=== PATIENT | female | born 1985 | race Caucasian/White ===

== ENCOUNTER → 2020-09-22 12:30 | Outpatient (CLI) | payer BC, SELFPAY ==
--- NOTE | ~2020-09-22 | MR_ITS ---
EXAMINATION: MR ankle RT wo con DATE: 09/22/2020 13:09 INDICATION: Peroneal tendinitis presenting with lateral right ankle pain TECHNIQUE: Magnetic resonance imaging (MRI) of the right ankle was performed without intravenous cont rast. Sequences included sagittal, coronal, and axial proton-density weighted fast spin echo without and with fat saturation. COMPARISON: None. FINDINGS: Medial ankle ligaments: Deep and superficial deltoid ligaments as well as the spring ligament are normal. Lateral ankle ligaments: The anterior and posterior inferior tibiofibular ligaments are normal. posterior talofibular ligamen ts is normal. Chronic tear of the anterior talofibular ligament without surrounding edema. Attenuatio n of the calcaneofibular ligament without surrounding edema also likely sequela of chronic partial te ar. Tendons: Achilles tendon is normal. There is small amount of fluid in the peroneal tendon sheath consistent wi th mild tenosynovitis. Mild fusiform thickening consistent with mild tendinopathy of the peroneus nette nilda and brevis tendons without discrete tear. The tibialis anterior and extensor hallucis longus and extensor digitorum longus tendons are normal. The flexor digitorum longus and flexor hallucis longus tendons are normal. Minimal tenosynovitis along the distal aspect of the normal tibialis posterior te ndon. Plantar fascia: Plantar aponeurosis is normal. Bones/other: Low signal intensity sclerotic bone islands at the head and lateral process of the talus. Bone marrow signal is otherwise normal. No fracture or pathologic marrow replacing process. Joint spaces are nor mal. Fluid: Physiologic amount fluid in the joint spaces. IMPRESSION: 1. Mild peroneal tenosynovitis and mild tendinopathy without discrete tear of the peroneus longus and brevis tendons. 2. Chronic tear of the anterior talofibular ligament and partial tear of the calcaneofibular ligament . Reviewed, dictated and finalized at location A. IMPRESSION: 1. Mild peroneal tenosynovitis and mild tendinopathy without discrete tear of t he peroneus longus and brevis tendons. 2. Chronic tear of the anterior talofibular ligament and partial tear of the ca lcaneofibular ligament.
== END ==
PROVIDERS: PCP Internal Medicine; Visit Provider Podiatrist Foot & Ankle Surgery
DX: M76.71 Peroneal tendinitis, right leg (principal)
CPT/HCPCS: 73721

== ENCOUNTER 2021-01-17 16:26 | Emergency (ER) | payer OTHER, SELFPAY ==
[2021-01-17 16:31] VITALS: BP 113/81; PULSE 93; RESP 14; TEMP 36.1; O2SAT 100
--- NOTE | 2021-01-17 17:10 | ED.URI ---
HPI - URI/Sore Throat General Chief Complaint: Upper Respiratory Infection Stated Complaint: nausea fever Time Seen by Provider: 01/17/21 17:10 Source: patient Mode of arrival: ambulatory Limitations: no limitations History of Present Illness HPI Narrative: Ashly Lamas is a 36 yo female with PMH of Type 1 diabetes comes with fever and headache and sore throat x 1 week. Appears to feel poorly; is on insulin properly her current blood sugar is over 300-she has been unable to eat or keep fluids down for the past 2 days Related Data Home Medications Medication Instructions Recorded Confirmed aripiprazole 2 mg PO DAILY 01/17/21 01/17/21 desvenlafaxine succinate [Pristiq] 100 mg PO DAILY 01/17/21 01/17/21 insulin lispro [Humalog U-100 1 sliding scale dose SUBCUT 01/17/21 01/17/21 Insulin] USEASDIRECTD pregabalin [Lyrica] 75 mg PO HS 01/17/21 01/17/21 Allergies Allergy/AdvReac Type Severity Reaction Status Date / Time piperacillin Allergy Unknown Swelling Verified 01/17/21 16:42 of Lip/Tongue/Throat tazobactam Allergy Unknown Swelling Verified 01/17/21 16:42 of Lip/Tongue/Throat Review of Systems Review of Systems: CONSTITUTIONAL: Has fever, chills, sweats. Feels fatigue EYES: Denies visual changes, redness, discharge. ENT: Denies rhinorrhea, has congestion, has sore throat, otalgia. Has had a headache CARDIOVASCULAR: Denies chest pain, palpitations, edema. RESPIRATORY: Denies dyspnea, wheezing, cough GASTROINTESTINAL: Denies abdominal pain, nausea, vomiting, diarrhea. GENITOURINARY: Denies dysuria, hematuria, abnormal discharge SKIN: Denies rash or itching. NEUROLOGIC: Denies numbness, or focal weakness. PSYCHIATRIC: Denies anxiety or depression. [facility] Past Medical History Medical History (Updated 01/17/21 @ 18:53 by Deann Spencer CNP) Migraine Type 1 diabetes Family History Family History (Updated 01/17/21 @ 17:20 by Deann Spencer CNP) Other High cholesterol Hypertension Social History Social History (Updated 01/17/21 @ 17:20 by Deann Spencer CNP) Smoking status: Never smoker Alcohol intake: current Comments At time of signature, I agree with nursing past medical, surgical, social and family history. There is no relevant family history pertinent to the presenting complaint. Exam Narrative: GENERAL: This is a well-nourished, well-developed patient, in moderate distress. Looks dry and uncomfortable, HEAD: normocephalic, atraumatic. EYES: Sclera clear/white. Vision is grossly intact. EARS: External ears normal, auditory canals clear and without drainage, TMs normal without perforation. Hearing grossly intact. NOSE: External nose normal without nasal discharge, nares without redness, no rhinorrhea. THROAT: Mucous membranes moist, posterior pharynx mild erythema NECK: Neck supple, non-tender CARDIOVASCULAR: Regular rate and rhythm without murmurs, gallops, or rubs. RESPIRATORY: Clear to auscultation. Breath sounds equal bilaterally. No wheezes, rales, or rhonchi. GASTROINTESTINAL: Abdomen soft, non-tender, SKIN: warm, intact with no suspicious lesions or rash, good texture and turgor. NEURO: awake, alert, and oriented to person, place and time. There were no obvious focal neurologic abnormalities. Steady gait EXTREMITIES: Normal range of motion. BACK: Nontender without deformity Course Course Emergency Course: Patient here with complaints of nausea vomiting headache inability keep anything down. Started a week ago with a sore throat and has developed nausea Strep test negative Covid test Give IV fluids and Zofran Given 1 L of normal saline and p.o. Zofran over 45 minutes Patient's color and energy level improved vital signs are stable given Zofran at discharge and discussed management of her blood sugar and hydration to prevent emergency room visit for DKA during a sick episode Vital Signs Vital signs: Vital Signs Temperature 97 F L 01/17/21 16:
[2021-01-17] MEDS: SODIUM CHLORIDE 0.9% IV 1,000 ML 999 ML IV CONT (17:38)
[2021-01-17] MEDS: ONDANSETRON HCL ODT 4 MG TABLET PO (17:38)
== END 2021-01-17 19:08 | disposition home or self-care (01) ==
PROVIDERS: Emergency Provider Nurse Practitioner; PCP Internal Medicine
DX: E86.0 Dehydration (principal); J02.9 Acute pharyngitis, unspecified; R11.14 Bilious vomiting; E10.9 Type 1 diabetes mellitus without complications
CPT/HCPCS: 87081; 87426; 87880; 96360; 99213; A9270; C9803; G0463; J7030

== ENCOUNTER 2021-08-12 16:56 | Emergency (ER) | payer OTHER, SELFPAY ==
[2021-08-12 17:02] VITALS: BP 133/93; PULSE 93; RESP 14; TEMP 36.9; O2SAT 99
--- NOTE | 2021-08-12 17:11 | ED.URI ---
HPI - URI/Sore Throat General Chief Complaint: Upper Respiratory Infection Stated Complaint: Sore Throat/Fever/Congestion Time Seen by Provider: 08/12/21 17:11 Source: patient Mode of arrival: ambulatory Limitations: no limitations History of Present Illness HPI Narrative: 36-year-old female presents with complaint of headache, congestion, sore throat, fatigue, low-grade fever x4 days. Reports that throat hurts really bad. Denies nausea vomiting diarrhea. All systems reviewed and negative except as noted above. Related Data Home Medications Medication Instructions Recorded Confirmed aripiprazole 2 mg PO DAILY 01/17/21 01/17/21 desvenlafaxine succinate [Pristiq] 100 mg PO DAILY 01/17/21 01/17/21 insulin lispro [Humalog U-100 1 sliding scale dose SUBCUT 01/17/21 01/17/21 Insulin] USEASDIRECTD dextroamphetamine-amphetamine 10 mg PO DAILY 08/12/21 08/12/21 [Adderall] Allergies Allergy/AdvReac Type Severity Reaction Status Date / Time piperacillin Allergy Unknown Swelling Verified 08/12/21 17:12 of Lip/Tongue/Throat tazobactam Allergy Unknown Swelling Verified 08/12/21 17:12 of Lip/Tongue/Throat Review of Systems Review of Systems: CONSTITUTIONAL: Reports fever, chills, or sweats. EYES: Denies visual changes, redness, or discharge. ENT: Reports rhinorrhea, congestion, sore throat, or otalgia. CARDIOVASCULAR: Denies chest pain, palpitations, or edema. RESPIRATORY: Denies cough or dyspnea. GASTROINTESTINAL: Denies abdominal pain, nausea, vomiting, or diarrhea. GENITOURINARY: Denies dysuria or hematuria. SKIN: Denies rash or itching. MUSCULOSKELETAL: Denies back pain, joint pain, or myalgia. NEUROLOGIC: Denies headache, numbness, or weakness. PSYCHIATRIC: Denies anxiety or depression. All other systems reviewed are negative, except as documented in HPI. [facility] Past Medical History Medical History (Updated 08/12/21 @ 17:41 by Harper Mora NP) Migraine Type 1 diabetes Family History Family History (Updated 01/17/21 @ 17:20 by Deann Spencer CNP) Other High cholesterol Hypertension Social History Social History (Updated 01/17/21 @ 17:20 by Deann Spencer CNP) Smoking status: Never smoker Alcohol intake: current Comments At time of signature, agree with nursing past medical, surgical, social and family history. There is no relevant family history pertinent to the presenting complaint. Exam Narrative: GENERAL: This is a well-nourished, well-developed patient. Patient is ill-appearing but in no distress. HEAD: normocephalic, atraumatic. EYES: PERRL. Sclera clear/white. Vision is grossly intact. EARS: External ears normal, auditory canals clear and without drainage, TMs normal without perforation. Hearing grossly intact. NOSE: External nose normal. Clear nasal drainage. No sinus tenderness. THROAT: Mucous membranes moist. Mild erythema to posterior pharynx. NECK: Neck supple, non-tender without lymphadenopathy, masses or thyromegaly. CARDIOVASCULAR: Regular rate and rhythm without murmurs, gallops, or rubs. RESPIRATORY: Clear to auscultation. Breath sounds equal bilaterally. No wheezes, rales, or rhonchi. GASTROINTESTINAL: Abdomen soft, non-tender, nondistended. Bowel sounds are active. No hepato-splenomegaly, or palpable masses. No guarding. SKIN: warm, Dry, intact with no suspicious lesions or rash, good texture and turgor. NEURO: awake, alert, and oriented to person, place and time. There were no obvious focal neurologic abnormalities. EXTREMITIES: No joint tenderness, effusion, or edema noted. No calf tenderness. Negative Homans sign bilaterally. BACK: Nontender without deformity. No CVA tenderness. Course Course Level of Care: Express Care Visit Vital Signs Vital signs: Vital Signs Temperature 36.9 C 08/12/21 17:02 Pulse Rate 93 08/12/21 17:02 Respiratory Rate 14 08/12/21 17:02 Blood Pressure 133/93 H 08/12/21 17:02 Pulse Oximetry 99 03/
== END 2021-08-12 17:45 | disposition home or self-care (01) ==
PROVIDERS: Emergency Provider Nurse Practitioner Family; PCP Internal Medicine
DX: J06.9 Acute upper respiratory infection, unspecified (principal); Z20.822 Contact with and (suspected) exposure to COVID-19; E10.9 Type 1 diabetes mellitus without complications
CPT/HCPCS: 87081; 87426; 87880; 99213; C9803; G0463

== ENCOUNTER 2021-09-04 18:53 | Emergency (ER) | payer OTHER, SELFPAY ==
[2021-09-04 19:02] VITALS: BP 114/83; PULSE 94; RESP 14; TEMP 36.8; O2SAT 100
--- NOTE | 2021-09-04 19:07 | ED.URI ---
HPI - URI/Sore Throat General Chief Complaint: Upper Respiratory Infection Stated Complaint: Congestion/Chest Congestion Time Seen by Provider: 09/04/21 19:09 Source: patient and RN notes reviewed Mode of arrival: ambulatory Limitations: no limitations History of Present Illness HPI Narrative: 36-year-old female presents concern for 5-week history of chest congestion, nasal congestion, foul nasal discharge. Reports she has had cold symptoms for many weeks and most of them have resolved however these have worsened. She reports she is taking [id number] medication that relief. She denies fever, bodies, chills, sweats. MD elicited complaint: cough and nasal congestion Related Data Home Medications Medication Instructions Recorded Confirmed desvenlafaxine succinate [Pristiq] 100 mg PO DAILY 01/17/21 09/04/21 insulin lispro [Humalog U-100 1 sliding scale dose SUBCUT 01/17/21 09/04/21 Insulin] USEASDIRECTD dextroamphetamine-amphetamine 10 mg PO DAILY 08/12/21 09/04/21 [Adderall] pregabalin 50 mg PO DIRECTED 09/04/21 09/04/21 Allergies Allergy/AdvReac Type Severity Reaction Status Date / Time piperacillin Allergy Unknown Swelling Verified 09/04/21 19:10 of Lip/Tongue/Throat tazobactam Allergy Unknown Swelling Verified 09/04/21 19:10 of Lip/Tongue/Throat Review of Systems Review of Systems: CONSTITUTIONAL: Denies malaise, chills, sweats, or fever. EYES: Denies visual changes, redness, or discharge. ENT: Reports rhinorrhea, congestion, sinus pain. Denies otalgia and sore throat. CARDIOVASCULAR: Denies chest pain, palpitations, or edema. RESPIRATORY: Reports cough, chest congestion. Denies dyspnea. GASTROINTESTINAL: Denies abdominal pain, nausea, vomiting, diarrhea SKIN: Denies rash or itching. MUSCULOSKELETAL: Denies myalgia. NEUROLOGIC: Denies headache. All systems reviewed & are unremarkable except as noted in HPI and below PMFSH Past Medical History Medical History (Updated 09/04/21 @ 19:15 by Christina Walton NP) Migraine Type 1 diabetes Family History Family History (Updated 01/17/21 @ 17:20 by Deann Spencer CNP) Other High cholesterol Hypertension Social History Social History (Updated 01/17/21 @ 17:20 by DELFINO Cruz Smoking status: Never smoker Alcohol intake: current Comments At time of signature, agree with nursing past medical, surgical, social and family history. There is no relevant family history pertinent to the presenting complaint Exam Narrative: GENERAL: Well-appearing and in no acute distress. HEAD: Normocephalic EYES: PERRLA, conjunctivae clear ENT: Nares clear, turbinates edematous and erythematous, sinus tenderness. Mucous membranes moist. TM pearly rodrigues with dull light reflex bilaterally; no tragal tenderness. Oropharynx not erythematous without lesions. Tonsils not enlarged and without exudate, no drooling, no hoarseness, no trismus, uvula midline. NECK: Supple. No lymphadenopathy CHEST: Clear to auscultation, breath sounds equal. No wheezing, rhonchi, rales, or stridor. No respiratory distress, speaks in full sentences. Cough noted HEART: Regular rate and rhythm. No murmur heard. SKIN: Warm, dry, no rash. NEURO: Alert and oriented x3. PSYCH: Normal mood and affect Course Course Emergency Course: Patient is aware of diagnosis, understands and agrees to treatment plan. Anticipatory guidance given. Patient agrees to follow-up as directed and is aware of reasons to seek care at the emergency department. Portions of this record may have been created with voice recognition software Level of Care: Express Care Visit Vital Signs Vital signs: Vital Signs Temperature 98.2 F 09/04/21 19:02 Pulse Rate 94 09/04/21 19:02 Respiratory Rate 14 09/04/21 19:02 Blood Pressure 114/83 09/04/21 19:02 Pulse Oximetry 100 09/04/21 19:02 Temperature 98.2 F 09/04/21 19:02 Pulse Rate 94 09/04/21 19:02 Respiratory Rate 1
== END 2021-09-04 19:21 | disposition home or self-care (01) ==
PROVIDERS: Emergency Provider Nurse Practitioner; PCP Internal Medicine
DX: J32.9 Chronic sinusitis, unspecified (principal); J40 Bronchitis, not specified as acute or chronic; E10.9 Type 1 diabetes mellitus without complications
CPT/HCPCS: 99213; G0463

== ENCOUNTER 2023-05-06 16:40 | Emergency (ER) | payer BC, SELFPAY ==
--- NOTE | ~2023-05-06 | XR_ITS ---
EXAMINATION: XR ankle LT min 3V, XR foot LT min 3V DATE: 05/06/2023 17:04 INDICATION: Left foot and ankle injury with bruising at the lateral left ankle TECHNIQUE: 1. Anteroposterior, mortise, additional oblique and lateral view of the left ankle were obtained. 2. Dorsoplantar, two oblique and lateral views of the left foot were obtained. COMPARISON: None. FINDINGS: Alignment of the foot and ankle is normal. No fracture or osteochondral lesion. Joint spaces are well maintained. No ankle joint effusion. Soft tissue swelling about the lateral malleolus. IMPRESSION: 1. No osseous abnormality. Reviewed, dictated and finalized at location A. LIFT ATTENDANT IMPRESSION: 1. No osseous abnormality. IMPRESSION: 1. No osseous abnormality.
--- NOTE | 2023-05-06 16:42 | ED.LOWEXIN ---
HPI - Extremity Injury (Lower) General Chief Complaint: Extremity Injury, Lower Stated Complaint: Left Foot Injury Time Seen by Provider: 05/06/23 16:53 Source: patient, RN notes reviewed and old records reviewed Mode of arrival: ambulatory Limitations: no limitations History of Present Illness HPI Narrative: 38-year-old female presents to the [facility] with complaints of left lateral foot and lateral ankle pain. States that she tripped rule ear ankle in for sleep, felt a sharp pop. States that she took a tramadol that she had for her rotator cuff. Bruising and swelling noted to the lateral malleolus. Full range of motion. Sensation intact, capillary refill under 2 seconds with positive pedal pulse Injury: Left: ankle and foot Related Data Home Medications Medication Instructions Recorded Confirmed desvenlafaxine succinate 100 mg 100 mg PO DAILY 01/17/21 09/04/21 tablet,extended release 24 hr (Pristiq) insulin lispro 100 unit/mL 1 sliding scale dose subcut 01/17/21 09/04/21 subcutaneous solution (Humalog USEASDIRECTD U-100 Insulin) dextroamphetamine-amphetamine 10 10 mg PO DAILY 08/12/21 09/04/21 mg tablet (Adderall) pregabalin 50 mg capsule 50 mg PO DIRECTED 09/04/21 09/04/21 hydrocodone 5 mg-acetaminophen 325 tablet 05/06/23 mg tablet insulin degludec 100 unit/mL (3 unit subcut 05/06/23 mL) subcutaneous pen (Tresiba FlexTouch U-100 insulin) valsartan 160 mg tablet mg 05/06/23 05/06/23 Allergies Allergy/AdvReac Type Severity Reaction Status Date / Time piperacillin Allergy Unknown Swelling Verified 05/06/23 16:54 of Lip/Tongue/Throat tazobactam Allergy Unknown Swelling Verified 05/06/23 16:54 of Lip/Tongue/Throat Review of Systems Review of Systems: All systems reviewed & are unremarkable except as noted in HPI and below Constitutional: Constitutional: Reports no additional constitutional complaints Eyes: Eyes: Reports no additional eye complaints ENT: Reports system reviewed and no additional complaints, except as documented Cardiovascular: Cardiovascular: Reports no additional cardiovascular complaints, Denies chest pain and Denies dyspnea Respiratory: Respiratory: Reports no additional respiratory complaints, Denies chest congestion, Denies cough and Denies dyspnea Gastrointestinal: Gastrointestinal: Reports no additional gastrointestinal complaints, Denies abdominal pain, Denies nausea and Denies vomiting Musculoskeletal: Musculoskeletal: Reports as per HPI, Reports arthralgias and Reports joint swelling Integumentary/Breasts: Skin/Breast: Reports system reviewed and no additional complaints, except as docu Neurologic: Reports system reviewed and no additional complaints, except as documented Psychiatric: Psychiatric: Reports no additional psychiatric complaints Allergic/Immunologic: Allergic/Immunologic: Reports no additional allergic/immunologic complaints PMFSH Past Medical History Medical History Migraine Type 1 diabetes Family History Family History Other High cholesterol Hypertension Social History Social History Smoking status: Never smoker Alcohol intake: current Comments At the time of my signature, I reviewed and agree with the nursing past medical, surgical, social, and family history. There is no relevant family history pertinent to the patient complaint. Exam Const: General: cooperative, healthy appearing, comfortable, no acute distress, well developed, alert and well nourished Nutritional Appearance: well nourished Orientation/consciousness: patient oriented x3 Limitations: no limitations HENMT: Head: normal to inspection Ears: hearing grossly normal bilaterally and external ears normal Face/Nose/Sinus: Normal external nose present, Normal nares present,
[2023-05-06 16:53] VITALS: BP 123/82; PULSE 102; RESP 16; TEMP 36.7; O2SAT 97
[2023-05-06 16:58] VITALS: BP 123/82; PULSE 102; RESP 16; TEMP 36.7; O2SAT 97
== END 2023-05-06 17:16 | disposition home or self-care (01) ==
PROVIDERS: Emergency Provider Nurse Practitioner; PCP Internal Medicine
DX: S93.402A Sprain of unspecified ligament of left ankle, initial encounter (principal); W01.0XXA Fall on same level from slipping, tripping and stumbling without subsequent striking against object, initial encounter; E10.9 Type 1 diabetes mellitus without complications
CPT/HCPCS: 73610; 73630; 99213; G0463

== ENCOUNTER 2023-07-06 15:06 | Emergency (ER) | payer BC, SELFPAY ==
[2023-07-06 15:18] VITALS: BP 140/90; PULSE 101; RESP 16; TEMP 37.2; O2SAT 99
--- NOTE | 2023-07-06 16:48 | ED.URI ---
HPI - URI/Sore Throat General Chief Complaint: Upper Respiratory Infection Stated Complaint: Chest Congestion/Cough/Sore Throat Time Seen by Provider: 07/06/23 16:30 Source: patient Mode of arrival: ambulatory Limitations: no limitations History of Present Illness HPI Narrative: 38 year old female who presents to [facility] care with complaints of fevers, cough which is productive, sore throat, congestion in head and feels like chest is on fire, with some body aches since Friday. Patient reports that she had 102F fever on Friday. Patient reports that she has been taking Tylenol and Ibuprofen and OTC cold medications without improvement in her symptoms. Patient reports no known ill contacts. MD elicited complaint: fever, cough, sore throat, rhinorrhea and nasal congestion Pertinent past history: other (insulin dependent diabetic) Onset (ago): day(s) (5 days) Pain scale (0-10): 4 Able to tolerate fluids by mouth: Yes Treatments prior to arrival: acetaminophen, ibuprofen, cold medicine and other Related Data Home Medications Medication Instructions Recorded Confirmed desvenlafaxine succinate 100 mg 100 mg PO DAILY 01/17/21 09/04/21 tablet,extended release 24 hr (Pristiq) insulin lispro 100 unit/mL 1 sliding scale dose subcut 01/17/21 09/04/21 subcutaneous solution (Humalog USEASDIRECTD U-100 Insulin) dextroamphetamine-amphetamine 10 10 mg PO DAILY 08/12/21 09/04/21 mg tablet (Adderall) pregabalin 50 mg capsule 50 mg PO DIRECTED 09/04/21 09/04/21 hydrocodone 5 mg-acetaminophen 325 tablet 05/06/23 mg tablet insulin degludec 100 unit/mL (3 unit subcut 05/06/23 mL) subcutaneous pen (Tresiba FlexTouch U-100 insulin) valsartan 160 mg tablet mg 05/06/23 05/06/23 meloxicam 15 mg tablet mg 07/06/23 07/06/23 tramadol 50 mg tablet mg 07/06/23 Allergies Allergy/AdvReac Type Severity Reaction Status Date / Time piperacillin Allergy Unknown Swelling Verified 07/06/23 15:18 of Lip/Tongue/Throat tazobactam Allergy Unknown Swelling Verified 07/06/23 15:18 of Lip/Tongue/Throat Review of Systems Review of Systems: CONSTITUTIONAL: Reports malaise, chills, sweats, or fever. EYES: Denies visual changes, redness, or discharge. ENT: Reports rhinorrhea, congestion, sinus pain,no otalgia and positive sore throat. CARDIOVASCULAR: Denies chest pain, palpitations, or edema. RESPIRATORY: Reports cough.? Denies dyspnea.reports feels like chest is burning GASTROINTESTINAL: Denies abdominal pain, nausea, vomiting, diarrhea SKIN: Denies rash or itching. MUSCULOSKELETAL: reports myalgia. NEUROLOGIC: Denies headache. All systems reviewed & are unremarkable except as noted in HPI and below PMFSH Past Medical History Medical History (Updated 07/09/23 @ 08:12 by Tara Gloria NP) Fracture of left ankle Migraine Neuropathy Right rotator cuff tear Type 1 diabetes Surgical History Surgical History (Updated 07/09/23 @ 08:10 by Tara Gloria NP) Hx of cholecystectomy Hx of elbow surgery left Family History Family History Other High cholesterol Hypertension Social History Social History (Updated 07/09/23 @ 08:08 by Tara Gloria NP) Smoking status: Never smoker Alcohol intake: current Alcohol use details: rare social Substance use type: does not use Living arrangements: with family Gender identity (if verbalized by the patient): Female Comments At time of signature, agree with nursing past medical, surgical, social and family history. There is no relevant family history pertinent to the presenting complaint Exam Narrative: GENERAL: Well-appearing, well-nourished, and in no acute distress. HEAD: Normocephalic EYES: PERRLA, conjunctivae clear ENT: Nares clear, turbinates edematous and erythematous, clear yellow discharge. Mucous membranes moist. TM pearly rodrigues with dull light
== END 2023-07-06 17:23 | disposition home or self-care (01) ==
PROVIDERS: Emergency Provider Registered Nurse; PCP Internal Medicine
DX: J40 Bronchitis, not specified as acute or chronic (principal); Z20.822 Contact with and (suspected) exposure to COVID-19; E10.40 Type 1 diabetes mellitus with diabetic neuropathy, unspecified; Z79.4 Long term (current) use of insulin
CPT/HCPCS: 87081; 87426; 87804; 87880; 99213; G0463

== ENCOUNTER 2023-07-10 17:26 | Emergency (ER) | payer BC, SELFPAY ==
--- NOTE | ~2023-07-10 | XR_ITS ---
EXAMINATION: XR chest 2V DATE: 07/10/2023 20:31 INDICATION: Cough. Congestion. TECHNIQUE: Frontal and lateral views of the chest were obtained. COMPARISON: None. FINDINGS: There is no pneumonia, pleural effusion, or pneumothorax. The heart size is normal. Breast implants are noted. IMPRESSION: 1. No acute cardiopulmonary disease. Reviewed, dictated and finalized at location E. RATOR OPERATOR
[2023-07-10 17:46] VITALS: BP 116/82; PULSE 100; RESP 20; TEMP 36.6; O2SAT 100
[2023-07-10 17:54] LABS: Glucose Point of Care 352 mg/dl (65-105)
[2023-07-10 18:43] LABS: Influenza A QL RT-PCR Negative (Negative); Influenza B QL RT-PCR Negative (Negative); RSV RNA, RT-PCR Positive (Negative); SARS-CoV-2 RNA PCR Negative (Negative)
[2023-07-10 19:45] VITALS: BP 122/89; PULSE 96; RESP 15; TEMP 36.6; O2SAT 100
[2023-07-10 19:46] VITALS: O2SAT 100
[2023-07-10 19:48] LABS: Glucose Point of Care 305 mg/dl (65-105)
--- NOTE | 2023-07-10 21:31 | ED.URI ---
HPI - URI/Sore Throat General Chief Complaint: Upper Respiratory Infection Stated Complaint: SOB x 1 week Time Seen by Provider: 07/10/23 19:49 Source: patient Limitations: no limitations History of Present Illness HPI Narrative: Patient is a 38-year-old female presents to the emergency department complaining of multiple complaints. Patient states 1 week ago she developed fever addition to sore throat and difficulty breathing and a cough with no sputum production his chest congestion. Patient states that most of these symptoms have persisted ever since and she isn't at resolution. Patient states she went to urgent care on Friday and was told she has bronchitis and was given a Z-Doug and prednisone and she took dizzy back to completion finished it this morning. Patient states her blood sugars have been rising. Patient denies urinary discomfort, chest pain, abdominal pain, nausea, vomiting, diarrhea, ear pain. Patient admits to taking DayQuil and NyQuil for symptoms. Related Data Home Medications Medication Instructions Recorded Confirmed desvenlafaxine succinate 100 mg 100 mg PO DAILY 01/17/21 09/04/21 tablet,extended release 24 hr (Pristiq) insulin lispro 100 unit/mL 1 sliding scale dose subcut 01/17/21 09/04/21 subcutaneous solution (Humalog USEASDIRECTD U-100 Insulin) dextroamphetamine-amphetamine 10 10 mg PO DAILY 08/12/21 09/04/21 mg tablet (Adderall) pregabalin 50 mg capsule 50 mg PO DIRECTED 09/04/21 09/04/21 hydrocodone 5 mg-acetaminophen 325 tablet 05/06/23 mg tablet insulin degludec 100 unit/mL (3 unit subcut 05/06/23 mL) subcutaneous pen (Tresiba FlexTouch U-100 insulin) valsartan 160 mg tablet mg 05/06/23 05/06/23 meloxicam 15 mg tablet mg 07/06/23 07/06/23 tramadol 50 mg tablet mg 07/06/23 Allergies Allergy/AdvReac Type Severity Reaction Status Date / Time piperacillin Allergy Unknown Swelling Verified 07/06/23 15:18 of Lip/Tongue/Throat tazobactam Allergy Unknown Swelling Verified 07/06/23 15:18 of Lip/Tongue/Throat Review of Systems Review of Systems: A 10 system review of systems was completed on the patient and is negative except for what is stated in the HPI. Nursing and ancillary documentation was reviewed. [facility] Past Medical History Medical History (Updated 07/10/23 @ 21:33 by Joshua Hernández DO) Fracture of left ankle Migraine Neuropathy Right rotator cuff tear Type 1 diabetes Surgical History Surgical History (Updated 07/09/23 @ 08:10 by Tara Gloria NP) Hx of cholecystectomy Hx of elbow surgery left Family History Family History Other High cholesterol Hypertension Social History Social History (Updated 07/09/23 @ 08:08 by Tara Gloria NP) Smoking status: Never smoker Alcohol intake: current Alcohol use details: rare social Substance use type: does not use Living arrangements: with family Gender identity (if verbalized by the patient): Female Comments At time of signature, I have reviewed and agree with nursing past medical, surgical, social and family history unless otherwise noted. Please see the nursing chart for further information. There is no relevant family history pertinent to the presenting complaint. Exam Narrative: CONST: No acute distress. Well nourished. HENMT: Head is normocephalic and atraumatic. Moist mucous membranes. No posterior oropharynx erythema. EYES: No conjunctival icterus, injection, or pallor. PERRL. NECK: No meningeal signs. RESP: Able to speak in full sentences. Normal respiratory effort. CTAB. CARDIO: Regular rate. Regular rhythm. 2+ DP and radial pulses bilaterally. GI: Nondistended. No tenderness to palpation. Soft. : No CVA tenderness to palpation. SKIN: No rashes or lesions noted on exposed skin. NEURO: Oriented x3. Moves all extremities. EXTREM/MSK/BACK: No pedal edema. PSYC
[2023-07-10 21:52] VITALS: PULSE 85; RESP 26; O2SAT 99
== END 2023-07-10 21:53 | disposition home or self-care (01) ==
PROVIDERS: Emergency Provider Student in an Organized Health Care Education/Training Program; PCP Internal Medicine
DX: J06.9 Acute upper respiratory infection, unspecified (principal); B97.4 Respiratory syncytial virus as the cause of diseases classified elsewhere; Z20.822 Contact with and (suspected) exposure to COVID-19; E10.9 Type 1 diabetes mellitus without complications; Z90.49 Acquired absence of other specified parts of digestive tract; Z79.4 Long term (current) use of insulin
CPT/HCPCS: 71046; 82948; 87637; 99283

== ENCOUNTER 2024-09-11 13:32 | Emergency (ER) | payer OTHER, BC, MEDICAID, SELFPAY ==
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
--- OUTSIDE RECORDS SUMMARY | 2024-09-11 13:33 | XMS_ITS | Encounter Summary ---
Author Organization [facility] Healthcare Address [address] [place] [address] Care Team Providers Care Rn Clinical Appeals Name Role Phone Yang Fagan MD Primary Care Provider + Joby Ruth MD Unavailable [phone] Yang Fagan MD Unavailable [phone] Encounter Details Date Type Department Care Team (Late st Contact Info) Description 09/03/2024 [facility] Post Discharge Follow up phone call [id number] [place] [address] Rosina Dodge Social History Tobacco Use Types Packs/Day Years Used Date Smoking Tobacco: Former Cigarettes 0.1 2 2 003 - 2005 Passive Smoke Exposure: Never Smokeless Tobacco: Never Comments:Social smoker Alcohol Use Standard Drinks/Week Comments Yes 0 (1 standard drink = 0.6 oz pur e alcohol) rarely AUDIT-C Answer Date Recorded Q1: How often do you have a drink containing alcohol? Never 09/02/2024 Q2: How many drinks containi ng alcohol do you have on a typical day when you are drinking? Patient does not drink Q3: How often do you have si x or more drinks on one occasion? Never 09/02/2024 PHQ-2 Answer Date Recorded PHQ-2 Score 0 01/20/2019 Personal Safety Answer Date Recorded Have you ever been in or are you currently in a harmful physical or emotional relationship or is someone making you feel afraid or unsafe? 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 Gender Identity Not on file Sexual Orientation Not on file documented as of this encounter Plan of Treatment Not on file documented as of this encounter Visit Diagnoses Not on filedocumented in this encounter Care Teams Rn Clinical Appeals Relationship Specialty Start Date End Date Yang Fagan MD [address] [place] [address] PCP - General 08/27/19 [place] [address] [place] [address] Surgeon Orthopedic Surgery 11/01/22 Yang Fagan MD [address] [place] [address] Referring Physician Internal Medicine 09/02/24 documented as of this encounter
--- OUTSIDE RECORDS SUMMARY | 2024-09-11 13:33 | XMS_ITS | Continuity of Care Document ---
Author Organization [employer] Address [address] [place] [address] Phone Care Team Providers Care Pricer Name Role Phone Steven BARBARARosanna Unavailable Unavailable Allergies, Adverse Reactions, Alerts Substance Reaction Status Criticality azithromycin Other Active No Information Medications Medication Instructions Dosage Effective Dates (start - stop) Status Comments GLUCOPHAGE 500 MG TABLET 0 DIRECTE - Active 2 po in the am , and 2 po in the pm ONE TOUCH ULTRA TEST STRIPS S 1 DIRECTE - Active ONE TOUCH LANCETS EA 1 DIRECTE - Ac tive PAXIL CR 25 MG TABLET 1 QD-daily - Act erika AMITRIPTYLINE HCL 10 MG TAB 3 QHS - Active ALESSE-28 0.1-0.02 TABS 1 QD-daily - Active TIZANIDINE HCL 2MG TABS 1 TID - Active ULTRACET 37.5-325MG TABS 1 Q 6-8HR - Active MEDROL (DOSEPAK) 4MG TABS 0 DIRECTE - No Longer Active MEDROL (DOSEPAK) 4MG TABS 0 DIRECTE - No Longer Active ZITHROMAX TAB 250 MG Z-CONG 250 0 DIRECTE - No Longer Active ALPRAZOLAM 0.25MG TABS .5 DAILY - No Longer Active GLUCOPHAGE 500 MG TABLET .5 BID - No Longer Active AMITRIPTYLINE HCL 10 MG TAB 2 QHS - No Longer Active GLUCOPHAGE 500 MG TABLET .5 BID - No Longer Active AMITRIPTYLINE HCL 10 MG TAB 2 QHS - No Longer Active PAXIL CR 25 MG TABLET 1 QD-daily - No Longer Active GLUCOPHAGE 500MG TABS 1 QD-daily - No Longer Active PAXIL CR 25MG TABS 1 QD-daily - No Longer Active LOESTRIN 1-0.02MG TABS 1 QD-daily - No Longer Active VYTORIN 10-20MG TABS 1 QPM 2006 - No Longer Active AMITRIPTYLINE HCL 10MG TABS 2 QHS - No Longer Active HYDROCODONE-ACETAMINO PHEN 10MG 1 Q 8-12HR - No Longer Active Advance Directives Directive Yes / No Effective Date File Name No Information Encounters Encounter Description Practice Location Reason(s) For Visit Diagnoses Date Provider Providers Copied on Encounter [facility], [address], [place], [place], [address] , tel: [phone] [facility] No Information Mar-0 6-201 1 Steven Paka. [address], [place], [place], [address], . tel:[phone] [facility], [address], [place], [place], [address] , [place] tel: [phone] [facility] No Information Mar-0 6-200 8 Steven Paka. [address] , [address], [place], [place], [address], . tel:[phone] [facility], [address], [place], [place], [address] , [place] tel: [phone] [facility] ACUTE URI NOS Sep-3 0-200 8 Conversion Doctor. [facility] Rafaela [facility], [place], [address], [place]. [facility], [address], [place], [place], [address] , tel: [phone] [facility] MIGRNE UNSP WO NTRC MGRN 2 8 No Information [facility] [employer] [facility] [employer] [facility], [address], [place], [place], [address] , tel: [phone] [facility] EPISODIC MOOD DISORD NEC 2 [address] Steven [address]. [address], [address], [place], [place], [address], [place]. tel:[phone] [facility], [address], [place], [place], [address] , [place] tel: [phone] [facility] OPEN WOUND OF FOOTVACCINATION FOR TD-DT 8 No Information [facility], [address], [place], [place], [address] , [place] tel: [phone] [facility] DMII WO CMP NT ST UNCNTRSPRAIN OF ANKLE NECHYPERLIPIDEMIA NEC/NOSSPRAIN OF WRIST NEC 8 No Information [facility], [address], [place], [place], [address] , tel: [phone] [facility] GENERAL OSTEOARTHROSISDMII RENAL UNCNTRLDVIRAL ENTERITIS NOS 8200 8 No Information [facility], [address], [place], [place], [address] , tel: [phone] [facility] LONG-TERM USE MEDS NECMALAISE AND FATIGUE NECHEADACHELUMBAGO Fe 8 No Information [facility], [address], [place], [place], [address] , [place] tel: [phone] [facility] CONTRACEPT PILL SURVEILLBACKACHE NOS 2 [address], [address], [place], [place], [address], [place]. [phone] [facility], [address], [place], [place], [address] , tel: [phone] [facility] SPECFIED GLORIA ANOMAL NEC 7 No Information Family History Family Member Type Diagnosis Age At Onset No Information Immunizations Vaccine Date Status Comments 49936 - TD administered Source: Source Unspecified Payers Payer name Insurance type Covered libertarian ID Authoriza tion(s) No Information Social History Type Description Quantity Date Captured Comments Sex Female Smoking Status No Information Chief Complaint And Reason For Visit No Information Reason For Referral Reason For Referral No Information History Of Present Illness Encounter Date Complaint History Of Prese nt Illness No Information Functional Status Date Functional Assessmen t No Information Medications Administered Medication Instructions Dosage Effective Dates (start - stop) Status Comments MEDROL (DOSEPAK) 4MG TABS 0 DIRECTE - No Longer Active Instructions Date Instruction Additional Infor mation No Information Assessments Type Assessment Date No Information Patient Care Teams Name Effective Dates (start - stop) Status Members No Information
--- OUTSIDE RECORDS SUMMARY | 2024-09-11 13:33 | XMS_ITS | Clinical Summary ---
Author Organization [facility] Address [address] [address] Phone Care Team Providers Care Postal Delivery Officer Name Role Phone GENE LEMUS, STACEY Jackson Primary Care Provider [phone] STEFANIE LAKE, MARGOT Paniagua Unavailable [phone] Reason for Visit and Chief Complaint * PHONE CALL Problems Includes: Problems addressed during this encounter and other active Problems All Visits Onset Date Resolved Date Provider Condition S tatus Gynecologic Services Thermal Endometrial Ablation 02/08/2022 CASS Yoli GABI WHNP-BC Active Last Documented On 02/08/2022 8:18AM ; [facility] Note: Nichole/BTL 3-29-21 - - Dr. Triana eth Bicornuate Uterus Obstetric 09/14/2013 CASS Yoli GABI WHNP-BC Active Last Documented On 09/14/2013 8:51AM ; [facility] Note: Stable - surgery to repair done 20 10 Diabetes Mellitus 09/14/2013 CASS PRINCE WHNP-BC Active Last Documented On 09/14/2013 8:50AM ; [facility] Note: Type I Previous Leep 09/14/2013 CASS Yoli GABI WHNP-BC Active Last Documented On 4 8:50AM ; [facility] Plan of Treatment Pending Tests Order Diagnosis Results Due Ordering P rovider Radiology @ other - *MAMMOGRAPHY SCREENING MAMMOGRAM Encntr screen mammogram for malignant neoplasm of breast 08/27/23 CASS Yoli GABI WHNP-BC Last Documented On 4 8:18AM ; [facility] Assessments Includes: Assessments from this encounter No Assessments Recorded Medical Equipment - Implanted Devices Includes: Current Devices No Medical Equipment Recorded Medications Includes: Medications discussed during this encounter and other current Medications Current Medications (continue as prescribed) Valsartan 160 MG Oral Tablet 05/04/2023 Provider: ZAFAR MONTAÑO MD Diagnosis: Last Documented On 08/13/2023 9:16AM By Monika Garrison Yoli ; [facility] Meloxicam 15 MG Oral Tablet 10/10/2020 Provider: Diagnosis: Last Documented On 1 4:19PM By KATE NORMAN ; [facility] Pristiq 100MG Oral Tablet Extended Release 24 Hour 11/2018 Provider: Diagnosis: Last Documented On 07/09/2018 1:43PM By TUSHAR NORMAN ; [facility] HumaLOG Mix 50/50 (50-50) 100 UNIT/ML SC SUSP 09/15/19 14 Provider: Diagnosis: Last Documented On 09/14/2013 8:54AM By TUSHAR NORMAN ; [facility] Medications Administered Includes: Administered Medications from this encounter No Administered Medications Recorded Results Includes: Results discussed during this encounter No Results Recorded For Specified Dates History of Present Illness Includes: History of Present Illness from this encounter No History of Present Illness Recorded Social History No Social History Recorded - Smoking Status Unknown Medical History Includes: Medical History addressed during this encounter No Medical History Recorded Family History Includes: Family History addressed during this encounter No Family History Recorded Review of Systems Includes: Review of Systems from this encounter No Review of Systems Recorded Mental Status Includes: Mental Status from this encounter No Mental Status Recorded Functional Status Includes: Functional Status from this encounter No Functional Status Recorded Physical Exam Includes: Physical Exam from this encounter No Physical Exam Recorded Allergies Includes: Active Allergies Substance Type Reaction Onset Date Resolved Date Statu s Zosyn Allergy 06/13/2020 Active Last Documented On 08/13/2023 9:17AM ; [facility] Note: throat closes Zithromax Z-Doug Allergy 10/26/2009 [place] ctive Last Documented On 9 1:42PM ; [facility] Tylenol with Codeine #3 Allergy Nausea, Vomiting 1 Active Last Documented On 4 9:17AM ; [facility] Encounters Encounter Provider Location Date Check-In Time Check-Out Time Diagnosis * PHONE CALL [facility] 3 11:08AM 11:59PM Insurance Includes: Active Insurance Policies Plan Name Member ID Group # Subscriber Relationship Effect erika Dates 1 - [facility] [id number] [place] Self Clinical Notes Includes: Clinical Notes from this encounter No Clinical Notes Recorded
--- OUTSIDE RECORDS SUMMARY | 2024-09-11 13:33 | XMS_ITS | Clinical Summary ---
Author Organization [facility] Address [address] [place] [address] Phone Care Team Providers Care Clinical Data Research Name Role Phone GENE LEMUS, STACEY Jackson Primary Care Provider [phone] STEFANIE LAKE, MARGOT Paniagua Unavailable [phone] Reason for Visit and Chief Complaint NO SHOW Problems Includes: Problems addressed during this encounter and other active Problems All Visits Onset Date Resolved Date Provider Condition S tatus Gynecologic Services Thermal Endometrial Ablation 02/08/2022 CASS Yoli GABI WHNP-BC Active Last Documented On 02/08/2022 8:18AM ; [facility] Note: Nichole/BTL 3-29-21 - - Dr. Triana eth Bicornuate Uterus Obstetric 09/14/2013 CASS Yoli GABI WHNP-BC Active Last Documented On 09/14/2013 8:51AM ; [facility] Note: Stable - surgery to repair done 20 10 Diabetes Mellitus 09/14/2013 CASS PRINCE WHNP-BC Active Last Documented On 09/14/2013 8:50AM ; [facility] Note: Type I Previous Leep 09/14/2013 CASS Yoli GABI WHNP-BC Active Last Documented On 4 8:50AM ; [facility] Plan of Treatment Pending Tests Order Diagnosis Results Due Ordering P rovider Radiology @ other - *MAMMOGRAPHY SCREENING MAMMOGRAM Encntr screen mammogram for malignant neoplasm of breast 08/27/23 CASS Yoli GABI WHNP-BC Last Documented On 4 8:18AM ; [facility] Assessments Includes: Assessments from this encounter No Assessments Recorded Medical Equipment - Implanted Devices Includes: Current Devices No Medical Equipment Recorded Medications Includes: Medications discussed during this encounter and other current Medications Current Medications (continue as prescribed) Valsartan 160 MG Oral Tablet 05/04/2023 Provider: ZAFAR MONTAÑO MD Diagnosis: Last Documented On 08/13/2023 9:16AM By Monika Garrison Yoli ; [facility] Meloxicam 15 MG Oral Tablet 10/10/2020 Provider: Diagnosis: Last Documented On 1 4:19PM By KATE NORMAN ; [facility] Pristiq 100MG Oral Tablet Extended Release 24 Hour 11/2018 Provider: Diagnosis: Last Documented On 07/09/2018 1:43PM By TUSHAR NORMAN ; [facility] HumaLOG Mix 50/50 (50-50) 100 UNIT/ML SC SUSP 09/15/19 14 Provider: Diagnosis: Last Documented On 09/14/2013 8:54AM By TUSHAR NORMAN ; [facility] Medications Administered Includes: Administered Medications [...] Active Last Documented On 08/13/2023 9:17AM ; [facility] Note: throat closes Zithromax Z-Doug Allergy 10/26/2009 [place] ctive Last Documented On 9 1:42PM ; [facility] Tylenol with Codeine #3 Allergy Nausea, Vomiting 1 Active Last Documented On 4 9:17AM ; [facility] Insurance Includes: Active Insurance Policies Plan Name Member ID Group # Subscriber Relationship Effect erika Dates 1 - [facility] [id number] [place] Self Clinical Notes Includes: Clinical Notes from this encounter No Clinical Notes Recorded
--- OUTSIDE RECORDS SUMMARY | 2024-09-11 13:34 | XMS_ITS | Clinical Summary ---
Author Organization [facility] Address [address] [place] [address] Care Team Providers Care [employer] Learning Support Teacher Name Role Phone Yang Fagan MD Primary Care Provider + Joby Ruth MD Unavailable Yang Fagan MD Unavailable Allergies Active Allergy Reactions Criticality Noted Date Comments Silver Blisters High 11/22/2023 Tegaderm Dressing - Blisters With prolonged use Adhesive Blisters High 09/08/2020 With prolonged use Codeine Nausea & Vomiting Low Piperacillin-Tazobacta m Anaphylaxis High 09/30/2011 Medications desvenlafaxine ER (PRISTIQ) 100 mg 24 hr tablet TAKE ONE TABLET BY MOUTH ONCE DAILY 90 tablet 06/29/19 20 Active blood-glucose meter kit Use to test blood glucose 4 times per day DX E10.65 1 kit 11/06/19 23 Active blood glucose diagnostic (Accu-Chek Guide test strips) strip USE 1 TEST STRIP TO CHECK GLUCOSE 4 TIMES DAILY 100 each 4 04/01/20 23 Active valsartan (DIOVAN) 320 mg tabletIndications :hypertension Take 1 tablet (320 mg total) by mouth nightly 10/29/19 24 Active insulin lispro (HumaLOG) 100 unit/mL vial for injection Instill humalog per insulin pump daily. E10.65 total daily dose 50 units. 50 mL 4 12/17/20 24 Active blood-glucose sensor device Used to monitor blood glucose continuously. 2 each 05/25/20 24 Active mirtazapine (REMERON TEODORO-TAB) 30 mg disintegrating tablet Take 1 tablet (30 mg total) by mouth nightly 06/22/19 25 Active traMADoL (ULTRAM) 50 mg tablet Take 1 tablet (50 mg total) by mouth every 8 (eight) hours as needed for pain 07/06/19 Active aspirin 81 mg enteric coated tablet Take 1 tablet (81 mg total) by mouth daily 30 tablet 09/04/19 25 025 Active metoprolol tartrate (LOPRESSOR) 25 mg immediate release tablet Take 0.5 tablets (12.5 mg total) by mouth 2 (two) times a day 30 tablet 09/03/19 Active acetaminophen ER (TYLENOL) 650 mg 8 hr tabletIndications :Pain Take 2 tablets (1,300 mg total) by mouth every 8 (eight) hours as needed for pain 2 tablets 025 Discontinu ed(Stop Taking at Discharge) docusate sodium (COLACE) 100 mg capsuleIndication s:constipation Take 1 capsule (100 mg total) by mouth 2 (two) times a day 60 capsule 02/12/20 24 025 Discontinu ed(Therapy completed) mirtazapine (REMERON) 15 mg tablet Take 1 tablet (15 mg total) by mouth nightly 04/28/20 24 025 Discontinu ed(Alterna te therapy) methylPREDNISolon e (MEDROL DOSEPACK) 4 mg DosepackIndicatio ns:S/P right rotator cuff repair Take 1 tablet (4 mg total) by mouth daily Use as directed by package instructions 21 tablet 06/11/19 25 025 Discontinu ed(Therapy completed) amoxicillin-clavu lanate (AUGMENTIN) 875-125 mg per tabletIndications :Acute non-recurrent maxillary sinusitis Take 1 tablet by mouth 2 (two) times a day for 10 days 20 tablet 08/12/19 25 025 fenofibrate (TRIGLIDE) 160 mg tablet Take 1 tablet (160 mg total) by mouth daily 08/26/19 25 025 Discontinu ed(Stop Taking at Discharge) rosuvastatin (CRESTOR) 40 mg tablet Take 1 tablet (40 mg total) by mouth nightly 30 tablet 09/03/19 25 025 Discontinu ed(Stop Taking at Discharge) Active Problems Problem Noted Date Diagnosed Date Non-traumatic rhabdomyolysis 09/02/2024 Chest pain in adult 09/01/2024 Angina pectoris, unstable 09/01/2024 Medtronic [address] G Ins[address] pump in place 02/06/2024 Assessment & Plan (06/14/2024 10:47 AM REPLENISHMENT ASSOCIATE): This is a chronic condition which is not at goal. Download reviewed from 05/31/2024 to 06/13/2024 Type of insulin pump- Medtronics 780 G Pump settings : Basal- 0.6 IC - 10 ISF- 60 Active insulin time 2hrs. TARGET GLUCOSE- 100-110 Avg BG- 223 +/- 91 Avg Total daily insulin- 37.5 units Avg daily basal -17 units (46%) Avg daily bolus -20 units (54%) Interpretation-in target range 38%. 0% hypoglycemia. 62% hyperglycemia. Hyperglycemia noted due to recent steroid pack Assessment & Plan (02/06/2024 9:06 AM CDT): This is a chronic condition which is not at goal. Download reviewed from 01/23/2024 to 02/02 Type of insulin pump- Medtronics 70 G Pump settings : Basal- decrease to 0.5 IC - increase 10 ISF-increase 60 Active insulin time 2hrs. TARGET GLUCOSE- changed 100-110 Avg BG- t 220+/- 98 Avg Total daily insulin- 24 units Avg daily basal -14 units (71%) Avg daily bolus -9 units (39%) Interpretation-in target range 66%. 3% hypoglycemia. 31% hyperglycemia. Insulin pump adjusted to avoid hypoglycemia. Hypertension associated with type 1 diabetes melanie litus 02/06/2024 Assessment & Plan (06/14/2024 10:45 AM REPLENISHMENT ASSOCIATE): This is a chronic condition which is at goal. Goal is less than 140/90 Continue valsartan Encouraged to monitor weight and B/P at home. Assessment & Plan (02/06/2024 9:07 AM CDT): This is a chronic condition which is at goal. Goal is less than 140/90 Continue valsartan Encouraged to monitor weight and B/P at home. Encouraged to void caffeine and excessive alcohol consumption as this will elevate B/P Tear of right rotator cuff 11/05/2023 Arthritis of carpometacarpal (CMC) joint of left thumb 10/09/2022 Type 1 diabetes mellitus with hyperglycemia 10/31 Assessment & Plan (06/14/2024 10:44 AM REPLENISHMENT ASSOCIATE): This is a chronic condition which is elevated, not at goal. Currently on steroid dose pack . Goal is less than 7%. Personally reviewed most recent A1c - Lab Results Component Value Date HGBA1C 8.4 (H) 05/06/2024 Personally reviewed POC blood sugar- elevated, not at goal of 80-180 Lab Results Component Value Date POCGLU 216 06/14/2024 Medication- Continue Medtronic 780 g with humalog insulin: basal -0.6 units, carb ratio-10, insulin sensitivity- 60, target 100-110, active insulin time-2 hrs. Monitor blood sugar continuously with guardian cgm. Encouraged annual eye exam. last dilated eye exam was [facility] Monofilament foot exam completed. Protective senses-intact eGFR- greater than 90 Kidney function-normal Urine microalbumin/creatinine ratio - at goal. Goal is <30 Continue valsartan Assessment & Plan (02/06/2024 9:03 AM CDT): This is a chronic condition which is at goal . Goal is less than 7%. Personally reviewed most recent A1c - Lab Results Component Value Date HGBA1C 7.5 (H) 02/04/2024 Personally reviewed POC blood sugar- not at goal of 80-180 Lab Results Component Value Date POCGLU 247 02/06/2024 Medication- Medtronic 780 g with humalog insulin: basal decreased to 0.5 units, carb ratio-10, insulin sensitivity- 60, target 100-110, active insulin time-2 hrs. For insulin pump failure: use Tresiba 20 units daily (receives from [facility] patient assistance program), Humalog 1 units for every 8 carbs with 1:50 correction for blood sugars greater than 150. 0-150=0uts, 151-199=1uts, 200-249=2uts, 250-299=3uts, 300-349=4uts, 350- 399=5uts, 400-449=6uts, 450-499 =7uts, >500= take 8 units (reports was getting humalog from patient assistance and has 6 vials left.) Monitor blood sugar continuously with cgm. Encouraged annual eye exam. Monofilament foot exam completed. Protective senses intact eGFR- greater than 90 Kidney function-normal Urine microalbumin/creatinine ratio - at goal. Goal is <30 Continue valsartan Assessment & Plan (07/22/2023 12:45 PM REPLENISHMENT ASSOCIATE): This is a chronic condition which is out of control , not at goal of less than 7%. Personally reviewed most recent A1c - Lab Results Component Value Date HGBA1C 10.3 07/22/2023 Personally reviewed POC blood sugar- not at goal 80-180 Lab Results Component Value Date POCGLU 205 07/22/2023 Medication- continue Tresiba 20 units daily (receives from [employer] patient assisitance program), Humalog 1 units for every 8 carbs with 1:50 correction for blood sugars greater than 150. 0-150=0uts, 151-199=1uts, 200-249=2uts, 250- 299=3uts, 300-349=4uts, 350- 399=5uts, 400-449=6uts, 450-499 =7uts, >500= take 8 units (reports was getting humalog from patient assistance and has 6 vials left.) Monitor blood sugar continuously with freestyle oneyda 3 sensor. - 3 office samples provided Encouraged annual eye exam. Personally reviewed CMP eGFR- 116 Kidney function- normal Urine microalbumin/creatinine ratio - at goal <30 treated with valsartan B/P today-at goal of <140/90. Continue valsartan Personally reviewed lipid panel. Not at Goal of less than 70. Assessment & Plan (01/16/2023 10:34 AM CDT): Diagnosed in 2004, and was started on insulin in December 2010. She has history of Atul Silver Dwarfism . Control : poor control since she is off pump - patient having financial problems. A1c 11.8% on 01/16/23 A1c 9.7% on 09/10/22 A1C 8.7% on 11/27/21 A1c 9.3% on 08/24/21 A1c 9.6% on 04/06/21 A1c 9.7% on 09/08/20 A1c 9.3% on 06/09/20. Kidney: normal kidney functions GFR 116 on 05/22/22 Neuropathy : Improved, and not using as much gabapentin. Plan: Patient again given samples of basal insulin Tresiba, and I recommended to get Rx- as now there is a cap on insulin cost Increase Tresiba insulin to 25 units. Continue bolus ratio with meals to 1 : 8 carb ratio Monitor sugars 4 x per day- send records in one week Hypoglycemia symptoms and treatment reviewed with patient. Call if having low sugars. Ophthalmology exam on regular basis. Assessment & Plan (09/10/2022 10:51 AM CDT): Diagnosed in 2004, and was started on insulin in December 2010. She has history of Atul Silver Dwarfism . Control : CGM showed hyperglycemia since she is off pump A1c 9.7% on 09/10/22 A1C 8.7% on 11/27/21 A1c 9.3% on 08/24/21 A1c 9.6% on 04/06/21 A1c 9.7% on 09/08/20 A1c 9.3% on 06/09/20. Kidney: normal kidney functions GFR 116 on 05/22/22 Neuropathy : Improved, and not using as much gabapentin. Plan: Patient to start basal insulin as long as she is off pump- Basaglar insulin 20 units once /day Continue bolus ratio with meals to 1 : 8 carb ratio Monitor sugars 4 x per day- use CGM Hypoglycemia symptoms and treatment reviewed with patient. Call if having low sugars. Ophthalmology exam on regular basis. Assessment & Plan (11/27/2021 2:10 PM CDT): Diagnosed in 2004, and was started on insulin in December 2010. She has history of Atul Silver Dwarfism . Control : CGM showed post prandial hyperglycemia after lunch A1C 8.7% on 11/27/21 A1c 9.3% on 08/24/21 A1c 9.6% on 04/06/21 A1c 9.7% on 09/08/20 A1c 9.3% on 06/09/20. Kidney: normal kidney functions GFR 111 on 05/03/21 Neuropathy : Improved, and not using as much gabapentin. Plan: Patient asked to continue the changes in diet and avoid fast foods. Continue basal rate during the day 0.9 units /hr Continue bolus ratio with meals to 1 : 8 carb ratio Monitor sugars 4 x per day- use CGM Hypoglycemia symptoms and treatment reviewed with patient. Call if having low sugars. Ophthalmology exam on regular basis. Assessment & Plan (08/24/2021 4:26 PM CDT): Diagnosed in 2004, and was started on insulin in December 2010. She has history of Atul Silver Dwarfism . Control : CGM showed post prandial hyperglycemia after lunch A1c 9.3% on 08/24/21 A1c 9.6% on 04/06/21 A1c 9.7% on 09/08/20 A1c 9.3% on 06/09/20. Kidney: normal kidney functions GFR 121 on 10/27/20 Neuropathy : Improved, and not using as much gabapentin. Plan: Patient asked to continue the changes in diet and avoid fast foods. Continue basal rate during the day 0.9 units /hr Continue bolus ratio with meals to 1 : 8 carb ratio Monitor sugars 4 x per day- use CGM Hypoglycemia symptoms and treatment reviewed with patient. Call if having low sugars. Ophthalmology exam on regular basis. Assessment & Plan (04/06/2021 2:50 PM CDT): Diagnosed in 2004, and was started on insulin in December 2010. She has history of Atul Silver Dwarfism . Control : not at target , hyperglycemia during the day A1c 9.6% on 04/06/21 A1c 9.7% on 09/08/20 A1c 9.3% on 06/09/20. A1c 9.1% on 02/25/2020 A1c 9.3% on 11/19/2019. A1c 8.4% on 08/13/2019. Kidney: normal kidney functions GFR 121 on 10/27/20 Neuropathy : Improved, and not using as much gabapentin. Plan: Patient asked to continue the changes in diet and avoid fast foods. Increase basal rate during the day to 0.9 units /hr Continue bolus ratio with meals to 1 : 8 carb ratio Monitor sugars 4 x per day- use CGM Hypoglycemia symptoms and treatment reviewed with patient. Call if having low sugars. Ophthalmology exam on regular basis. Assessment & Plan (09/08/2020 2:02 PM CDT): Diagnosed in 2004, and was started on insulin in December 2010. She has history of Atul Silver Dwarfism . Control : not at target yet CGM hyperglycemia during the day A1c 9.7% on 09/08/20 A1c 9.3% on 06/09/20. A1c 9.1% on 02/25/2020 A1c 9.3% on 11/19/2019. A1c 8.4% on 08/13/2019. A1c 7.4% on 05/13/19 A1c 7.6% on 02/19/19. Kidney: normal kidney functions in June/2020 Neuropathy : Improved, and not using as much gabapentin. Plan: Patient asked to continue the changes in diet and avoid fast foods. Increase basal rate during the day to 0.875 units /hr from 7 am -12 am Continue bolus ratio with meals to 1 : 8 carb ratio Monitor sugars 4 x per day Hypoglycemia symptoms and treatment reviewed with patient. Call if having low sugars. Ophthalmology exam on regular basis. 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 Weight gain since last office visit Encouraged healthy eating which includes a low carb diet. Avoiding processed foods, sweets and fried foods. Encouraged 30 minutes of walking at least 5 days per week Discussed that exercise can be broken down into small sessions- for example 2- 15 minutes sessions or 3- 10 minutes sessions. Assessment & Plan (07/22/2023 12:46 PM REPLENISHMENT ASSOCIATE): 10 lb weight gain since last office visit 01/22 Encouraged healthy eating and exercise Assessment & Plan (06/17/2017 6:29 AM REPLENISHMENT ASSOCIATE): Weight has been stable for patient. She is aware of importance of healthy proper caloric intake. Seizure-like activity 06/16/2017 Assessment & Plan (06/17/2017 6:28 AM REPLENISHMENT ASSOCIATE): Plan to obtain MRI of brain along with EEG. Discussed referring to neurology. Anxiety 06/16/2017 Assessment & Plan (06/17/2017 6:29 AM REPLENISHMENT ASSOCIATE): Has improved with Pristiq. Will continue. Other fatigue 06/16/2017 Assessment & Plan (06/17/2017 6:28 AM REPLENISHMENT ASSOCIATE): Plan to check CBC, TSH and Vitamin B12. Type 1 diabetes mellitus 02/11/2013 Overview (09/04/2016): Diabetes mellitus type 1 Assessment & Plan (06/17/2017 6:26 AM REPLENISHMENT ASSOCIATE): Diabetes is improving with treatment. Discussed ways to avoid symptomatic hypoglycemia. Discussed sick day management. Discussed foot care. Reminded to get yearly retinal exam. Has upcoming appt with security sales manager. Diabetes will be reassessed in 1 month. Depression 02/11/2013 Overview (09/04/2016): Depression Migraine 02/11/2013 Overview (09/04/2016): Migraines Resolved Problems Problem Noted Date Diagnosed Date Resolved Date Acute sinusitis 12/26/2017 12/26/2017 Migraine 12/26/2017 12/26/2017 Raised TSH level 12/26/2017 12/26/2017 Urinary tract infectious disease 12/26/2017 12/26/2017 Skin sensation disturbance 04/20/2014 0 12/26/2017 Overview (09/07/2016): Skin sensation disturbance Encounters Date Type Department Care Team Description 09/09/2024 11:20 AM CDT Lab [facility] [address] [place] [address] Arrived 09/06/2024 4:59 PM CDT - 09/06/2024 11:59 PM CDT Hospital Encounter [facility] [address] [place] [address] Cervicalgia Discharge Disposition: Discharge to home or self care 09/03/2024 [facility] Post Discharge Follow up phone call [address] [phone] Rosina Dodge Courtney 09/02/2024 10:05 AM CDT - 09/02/2024 11:35 AM CDT Surgery [facility] Cardiac Catheterization Lab [address] [place] [id number] Fabio Hung MD LEFT HEART CATHETERIZATION WITH CORONARY ANGIOGRAPHY AND WITH OR WITHOUT LEFT VENTRICULOGRAM [id number] 09/02/2024 Telephone [facility] Medical [facility] Cardiology [address] [place] [address] [place] [phone] Fabio Hung MD F/U bayron 09/01/2024 6:28 PM CDT - 09/02/2024 4:00 PM CDT Emergency [address] [address] Juli Castaneda MD [place], Nicholas Peter, MD Rao, Ricardo, MD Rao, Magda Schmidt MD Chest pain, unspecified type (Primary Dx); MORALES (dyspnea on exertion); Chest pain in adult; Angina pectoris, unstable (HCC); Type 1 diabetes mellitus with hyperglycemia (HCC) Discharge Disposition: Discharge to home or self care 08/18/2024 9:05 AM CDT Lab [facility] [address] [place] [address] 08/11/2024 4:45 PM CDT Office Visit [facility] Medical [facility] at [address] [phone] Sandy Fry NP Acute non-recurrent maxillary sinusitis (Primary Dx) 08/07/2024 Results Follow-Up [facility] at [address] [phone] Lizz Gaston NP 08/04/2024 12:54 PM REPLENISHMENT ASSOCIATE - 08/04/2024 11:59 PM REPLENISHMENT ASSOCIATE Hospital Encounter [address] [address] Nasopharyngitis Discharge Disposition: Discharge to home or self care 08/04/2024 12:15 PM REPLENISHMENT ASSOCIATE Office Visit [facility] at [address] [phone] Deanna Licea PA Nasopharyngitis (Primary Dx) 08/02/2024 8:00 AM REPLENISHMENT ASSOCIATE Office Visit [facility] Orthopaedic Surgery [address] [place] [address] 2nd [address] [place] [address] Yunior Pacheco MD S/P right rotator cuff repair (Primary Dx) 06/14/2024 10:30 AM REPLENISHMENT ASSOCIATE Office Visit [facility] at [address] [place] [phone] Rosanna Julien NP Type 1 diabetes mellitus with hyperglycemia (HCC) (Primary Dx); Hypertension associated with type 1 diabetes mellitus (HCC); BMI 23.0-23.9, adult; Medtronic 780 G Insulin pump in place from Last 3 Months Immunizations Immunization Administration Dates Next Due HPV, Quadrivalent 11/17/2008,07/07/2008,05/05/20 08 Influenza, Quadrivalent, Spl it, Intramuscular 03/02/2016,03/28/2015 Influenza, Quadrivalent, Spl it, Preservative Free, Intramuscular 04/30/2023,02/18/2022,02/27/2021 Influenza, Split 06/02/2010 Influenza, Trivalent, IM (MDV) 03/02/2015,2011 Influenza, Unspecified 12/26/2017(Deferred: Othe r) TD Preservative Free 12/31/2010 Tdap 10/31/2010 Surgical History Surgery Date Site/Laterality Comments CHOLECYSTECTOMY 06/02/2008 - 06/01/2009 AUGMENTATION MAMMOPLASTY 06/02/2008 - 06/01/2009 revision, implant exchange HYSTEROPLASTY REPAIR OF UTERINE ANOMALY 07/03/2010 - 07/30/2010 Bicornate uterus- removed septum TUBAL LIGATION 07/31/2021 - 08/30/2021 RECONSTRUCTION MEDIAL COLLATERAL LIGAMENT ELBOW W/ TENDON GRAFT 06/02/2019 - 06/01/2020 Left AUGMENTATION MAMMOPLASTY 06/02/2007 - 06/01/2008 SECTION 03/16/2012 MEDIAL COLLATERAL LIGAMENT AND LATERAL COLLATERAL LIGAMENT REPAIR, ELBOW 06/02/2020 - 06/01/2021 Left CERVICAL BIOPSY W/ LOOP ELECTRODE EXCISION 2000s ENDOMETRIAL ABLATION 07/31/2021 - 08/30/2021 EPIDURAL STEROID INJECTION 07/03/2021 - 07/30/2021 L5-S1 THUMB SURGERY 10/31/2022 - 11/29/2022 Left CARPOMETACARPAL ,DISTAL RADIUS BONE GRAFT SHOULDER SURGERY 11/01/2023 - 11/30/2023 Right CARDIAC CATHETERIZATION 09/02/2024 N/A Procedure: LEFT HEART CATHETERIZATION WITH CORONARY ANGIOGRAPHY AND WITH OR WITHOUT LEFT VENTRICULOGRAM [id number]; Surgeon: Fabio Hung MD; Location: [facility] FOR[facility] PATHOLOG[facility]; Service: Cardiovascular; Laterality: N/A; Medical devices from this surgery are in the Medical Devices section. CARDIAC CATHETERIZATION 09/02/2024 N/A Procedure: ULTRASOUND GUIDANCE FOR VASCULAR ACCESS S&I [id number]; Surgeon: Fabio Hung MD; Location: CARDIAC FORENSIC PATHOLOGIST; Service: Cardiovascular; Laterality: N/A; Medical devices from this surgery are in the Medical Devices section. 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 per pt Family History Medical History Relation Name Comments Learning disabilities Brother Christofer Mo marta - Dyslexia Heart attack Father Calvin Figueredo Heart disease Father Calvin Figueredo Hyperlipidemia Father Calvin Figueredo Hyperlipidemi a; Hypertension Father Calvin Figueredo Hypertension; Cancer Maternal Grandfather Joby Yinland Coronary artery disease Maternal Grandfather Joby Mor jose Coronary artery disease; Heart attack Maternal Grandfather Joby Johnson Heart disease Maternal Grandfather Joby Johnson Seizures Maternal Grandfather Joby Johnson Seiz ure disorder; Skin cancer Maternal Grandfather Joby Johnson Canc er -skin; /Cancer, skin; Stroke Maternal Grandfather Joby Johnson Stro ke; Vision loss Maternal Grandfather Joby Johnson Alzheimer's disease Maternal Grandmother Kelley [place] fabiana Coronary artery disease Maternal Grandmother Kelley carson Coronary artery disease; Heart attack Maternal Grandmother Kelley Johnson Heart disease Maternal Grandmother Kelley Johnson Stroke Maternal Grandmother Kelley Johnson Strok e; Hyperlipidemia Mother Lucinda Figueredo Hyperlipidemi a; Other Mother Lucinda Figueredo Headaches, migraines; Vision loss Mother Lucinda Figueredo Cancer Mother's Sister Several Cancer Other Heart disease Other Other Other Scleroderma; Coronary artery disease Paternal Grandfather Coronary artery disease; Coronary artery disease Paternal Grandmother Destinee archibald Coronary artery disease; Diabetes Paternal Grandmother Destinee Esteban Diabete s mellitus; Arthritis Sister Aminata Annesusan - Scleradermflor Anesthesia problems Neg Hx Relation Name Status Comments Brother Christofer Figueredo - Dyslexia Father Calvin Figueredo Maternal Grandfather Joby Johnson Maternal Grandmother Kelley Johnson Mother Lucinda Figueredo Alive Mother's Sister Several Other Paternal Grandfather Paternal Grandmother Destinee Esteban Sister Aminata Winter - Scleraderma Social History Tobacco Use Types Packs/Day Years Used Date Smoking Tobacco: Former Cigarettes 0.1 2 2 003 - 2005 Passive Smoke Exposure: Never Smokeless Tobacco: Never Tobacco Cessation:Counseling Given: Not Answered Comments:Social smoker Alcohol Use Standard Drinks/Week Comments [...] on file Legal Sex Female 9:10 AM REPLENISHMENT ASSOCIATE Gender Identity Not on file Sexual Orientation Not on file Obstetrics History Para Term AB IAB SAB Ectopic Multiple Livin g Live Births 2 1 Date Outcome GA Total Labor Labor/2nd/3rd Weight Sex Type Anes PTL Kelsy A1 A5 Name Clin Para Last Filed Vital Signs Vital Sign Reading Time Taken Comments Blood Pressure 99/69 09/02/2024 3:05 PM CDT Pulse 87 09/02/2024 3:05 PM CDT Temperature 36.9 C (98.4 F) 09/02/2024 3:05 PM CDT Respiratory Rate 18 09/02/2024 3:05 PM CDT Oxygen Saturation 97% 09/02/2024 3:05 PM CDT Inhaled Oxygen Concentration - - Weight 57.4 kg (126 lb 8.7 oz) 09/02/2024 12:49 AM CDT Height 149.9 cm (4' 11 ) 09/02/2024 12:49 AM CDT Body Mass Index 25.56 09/02/2024 12:49 AM CDT Plan of Treatment Health Maintenance Due Date Last Done Comments Breast Cancer Screening-Mammogram 1984 Hepatitis C Screening 1984 Varicella Vaccines (1 of - + 2-dose series) 01/12/1997 Hepatitis B Screening 01/12/2002 Regular Well Visit/Exam 18-64 01/12/2002 Pneumococcal vaccine <65 (1 of 2 - PCV) 01/12/2003 Cervical Cancer Screening 12/31/2017 12/31/2016 Depression Screening 12/11/2019 12/10/2018, 12/26/2017, 12/26/2017, Additional history exists DTaP/Tdap/Td Vaccine (3 - Td or Tdap) 12/31/2020 12/31/2010, 10/31/2010 Covid-19 Vaccine (3 - 2023-2 5 season) 2024 07/26/2020, 07/04/2020 TSH Level 09/04/2024 09/05/2023, 1206/2021, 05/03/2021, Additional history exists Influenza Vaccine (Season Ended) 2025 04/30/2023, 02/18/2022, 02/27/2021, Additional history exists Hemoglobin A1C 02/18/2025 08/18/2024, 10/2023, 02/04/2024, Additional history exists Foot Exam 06/14/2025 06/14/2024, 12/31, 09/10/2022, Additional history exists Albumin Creatinine Ratio, Urine 08/18/2025 08/18/2024, 05/06/2024, 12/10/2023, Additional history exists Lipid Panel 08/18/2025 08/18/2024, 10/2023, 12/10/2023, Additional history exists eGFR 09/02/2025 09/02/2024, 07/2024, 08/18/2024, Additional history exists Dilated Eye Exam 10/31/2025 11/01/2023, 03/2021, 12/18/2019, Additional history exists HPV Vaccines Completed 11/17/2008, 09/2008, 05/05/2008 Medical Devices Implanted Type Area High Lift Driver Device Identifier Shelf Expiration Date Model / Serial / Lot [employer] K Wire Fix [place] Smooth Sgl End Ss [id number] - [id number] Implanted:Qty: 3 on 11/01/2022 by Joby Ruth MD at [facility] Left: Thumb [employer] [id number] / / [employer] Suture Hostetter Triple Loaded Knotless Fibertak 2.6mm Ar-3633sp - [id number] Implanted:Qty: 1 on 11/20/2023 by Yunior Pacheco MD at [facility] [employer] 07/30/2028 AR-363 3SP / / [id number] Description:[employer] Sutu re Hostetter Triple Loaded Knotless Fibertak 2.6mm AR- 3633SP - [id number] [employer] Swivelock C 4.75mm 19.1mm Closed Eyelet Vent Hostetter Suture Ar-2324bcc - [id number] Implanted:Qty: 1 on 11/20/2023 by Yunior Pacheco MD at [facility] [place] Right: Shoulder [employer] 08/31/2027 AR-2324BC C / / [id number] [employer] Corkscrew Suturetape 5.5mm 14.7mm Bioabsorbable Full Thread 1.3mm Ar-1927bct - S0 - [id number] Implanted:Qty: 1 on 02/12/2024 by Yunior Pacheco MD at [facility] [place] Right: Shoulder [employer] 08/30/2025 AR-1927BC T / 0 / [id number] [employer] Corkscrew Suturetape 5.5mm 14.7mm Bioabsorbable Full Thread 1.3mm Ar-1927bct - S0 - [id number] Implanted:Qty: 1 on 02/12/2024 by Yunior Pacheco MD at [facility] [place] Right: Shoulder [employer] 09/29/2025 AR-1927BC T / 0 / [id number] [employer] Corkscrew Suturetape 5.5mm 14.7mm Bioabsorbable Full Thread 1.3mm Ar-1927bct - S0 - [id number] Implanted:Qty: 1 on 02/12/2024 by Yunior Pacheco MD at [facility] Right: Shoulder [employer] 09/29/2025 AR-1927BC T / 0 / [id number] [facility] Angio-Seal Vip 6fr Closere Device [id number] - [id number] Implanted:Qty: 1 on 09/02/2024 by Fabio Hung MD at [facility] [address] [facility] 01/25/2025 [id number] / / [id number] Procedures Procedure Name Priority Date/Time Associated Diagnosis Comments CREATINE KINASE (CK), TOTAL Routine 09/09/2024 11:19 AM CDT MRI CERVICAL SPINE WO CONTRAST Schedule Routine, Read Routine (OP Routine) 09/06/2024 5:32 PM CDT Cervicalgia POCT GLUCOSE DEVICE Routine 09/02/2024 11:33 AM CDT VASCULAR ACCESS US GUIDANCE Routine 09/02/2024 10:54 AM CDT Angina pectoris, unstable (HCC) LEFT HEART CATHETERIZATION WITH CORONARY ANGIOGRAPHY AND WITH AND WITHOUT LEFT VENTRICULOGRAM Routine 09/02/2024 10:54 AM CDT Angina pectoris, unstable (HCC) MODERATE SEDATION SAME MD JONES ADDL 15 MIN [id number] 09/02/2024 10:11 AM CDT Angina pectoris, unstable (HCC) MODERATE SEDATION 09/02/2024 10:11 AM CDT Angina pectoris, unstable (HCC) POCT GLUCOSE DEVICE Routine 09/02/2024 8 :09 AM CDT EGFR Routine 09/02/2024 4:17 AM CDT DIFFERENTIAL AUTO Routine 09/02/2024 4:1 7 AM CDT MAGNESIUM Routine 09/02/2024 4:17 AM CDT CREATINE KINASE (CK), TOTAL Routine 09/02/2024 4:17 AM CDT BASIC METABOLIC PANEL Routine 09/02/2024 4:17 AM CDT CBC WITH AUTO DIFFERENTIAL Routine 09/02/2024 4:17 AM CDT POCT GLUCOSE DEVICE Routine 09/02/2024 4 :03 AM CDT POCT HCG, URINE Routine 09/01/2024 10:05 PM CDT LIPASE Add-On 09/01/2024 9:16 PM CDT D-DIMER, QUANTITATIVE Routine 09/01/2024 9:16 PM CDT TROPONIN T HIGH-SENSITIVITY 4-HR Timed 09/01/2024 9:16 PM CDT URINALYSIS AND REFLEX TO MICROSCOPIC AND CULTURE STAT 09/01/2024 9:16 PM CDT CREATINE KINASE (CK), TOTAL Add-On 09/01/2024 7:13 PM CDT TROPONIN T HIGH-SENSITIVITY 2-HOUR Timed 09/01/2024 7:13 PM CDT XR CHEST PA LATERAL 2 VIEWS ED 09/01/2024 6:30 PM CDT EGFR STAT 09/01/2024 5:35 PM CDT DIFFERENTIAL AUTO STAT 09/01/2024 5:3 5 PM CDT PRO B-TYPE NATRIURETIC PEPTIDE STAT 09/01/2024 5:35 PM CDT TROPONIN T HIGH-SENSITIVITY SERIES (BASELINE, 2HR, 4HR, 6HR) STAT 09/01/2024 5:35 PM CDT CBC WITH AUTO DIFFERENTIAL STAT 09/01/2024 5:35 PM CDT COMPREHENSIVE METABOLIC PANEL STAT 09/01/2024 5:35 PM CDT RESPIRATORY PATHOGEN PANEL STAT 09/01/2024 5:07 PM CDT ECG 12-LEAD STAT 09/01/2024 5:03 PM CDT EGFR Routine 08/18/2024 9:10 AM CDT CHOLESTEROL, LDL, DIRECT Routine 08/18/2024 9:10 AM CDT LIPID PANEL Routine 08/18/2024 9:10 AM CDT ALBUMIN CREATININE RATIO, URINE Routine 08/18/2024 9:10 AM CDT HEMOGLOBIN A1C Routine 08/18/2024 9:10 AM CDT BASIC METABOLIC PANEL Routine 08/18/2024 9:10 AM CDT URINALYSIS AND REFLEX TO MICROSCOPIC AND CULTURE Routine 08/18/2024 9:10 AM CDT THROAT CULTURE Routine 08/04/2024 12:54 PM REPLENISHMENT ASSOCIATE Nasopharyngitis POC INFLUENZA A/B, COVID-19 ANTIGEN Routine 08/04/2024 12:41 PM REPLENISHMENT ASSOCIATE Nasopharyngitis POCT RAPID STREP Routine 08/04/2024 12:29 PM REPLENISHMENT ASSOCIATE Nasopharyngitis POCT GLUCOSE Routine 06/14/2024 10:20 AM REPLENISHMENT ASSOCIATE Type 1 diabetes mellitus with hyperglycemia (HCC) DIABETIC EYE EXAM Routine 11/01/2023 TSH Routine 09/05/2023 12:00 AM CDT Major depressive disorder, recurrent episode, moderate (HCC) Avitaminosis D Lumbago Radicular pain of sacrum Myalgia HM DIABETES FOOT EXAM Routine 10/01/2017 HM PAP SMEAR WITH HPV Routine 12/31/2016 from Last 3 Months or Most Recently Relevant to Health Maintenance Results * Creatine kinase (CK), total (09/09/2024 11:19 AM CDT) CK 142 30 - 200 Units/L Comment:Testing performed by : [facility], [address] [place] [address], [place] [address] Blood 09/09/2024 11:1 9 AM CDT 09/09/2024 7:52 PM CDT us Haja Wright NP LAB BLOOD ORDERABLES Final Result NOAH [facility]MOND) 1 [facility] Department [place] [address] * MRI Cervical Spine WO Contrast (09/06/2024 5:32 PM CDT) Anatomical Region Laterality Modality Spine N/A Magnetic Resonan ce 09/07/2024 7:37 AM CDT Narrative 09/07/2024 9:22 AM CDT EXAM DESCRIPTION: MRI CERVICAL SPINE WO CONTRAST REASON FOR STUDY: cervicalgia Neck pain with numbness in RUE x several months TECHNIQUE: Sagittal and Axial imaging includes T1, T2, STIR and gradient echo sequences. COMPARISON: Cervical spine MRI dated 06/27/2017 and 02/01/2016. Cervical spine CT dated 12/08/2015. FINDINGS: ALIGNMENT: Reversal of the normal cervical lordosis. VERTEBRAE: No gross acute compression fracture in the cervical spine. If trauma is suspected then a CT has higher sensitivity for spinal fractures and can be obtained as clinically indicated. Multilevel endplate degenerative changes and marginal spur formation, most noticeable from C4-C5 through C6-C7, C2-C3 and to a lesser extent the remainder of the cervical levels. DISCS: Diffuse intervertebral disc height loss ranging up to moderate to severe. HARDWARE: None in the spine. CORD: No definite T2 hyperintense cord signal alteration is reproduced on 2 separate sequences. INDIVIDUAL LEVELS: C2-C3: Posterior disc osteophyte complex eccentric to the left flattens the left ventral thecal sac. Thickened ligamentum flavum indents the dorsal thecal sac. No significant spinal canal stenosis. Uncovertebral spurring and facet arthropathy with moderate to severe left and mild proximal right neural foraminal narrowing. C3-C4: Minor disc bulge and thickened ligamentum flavum. No significant spinal canal stenosis. Uncovertebral spurring and facet arthropathy with mild inferior left and no significant right neural foraminal narrowing. C4-C5: Posterior disc osteophyte complex flattens the left ventral cord. Dorsal CSF cleft is maintained. Uncovertebral spurring and facet arthropathy with moderate to severe left and mild right neural foraminal narrowing. C5-C6: Posterior disc osteophyte complex flattens the ventral thecal sac. Thickened ligamentum flavum. Lysc-tf-ncpukalr right spinal canal stenosis. Uncovertebral spurring and facet arthropathy with moderate neural foraminal narrowing. C6-C7: Posterior disc osteophyte complex without significant spinal canal stenosis. Uncovertebral spurring and facet arthropathy with mild neural foraminal narrowing. C7-T1: No significant disc bulge or spinal canal stenosis. Bilateral facet arthropathy without significant neural foraminal narrowing. UPPER THORACIC: Incompletely imaged. No high-grade spinal canal stenosis. OTHER: Partially imaged nonspecific bilateral cervical chain lymph nodes of the neck as clinically indicated. Of the abdomen IMPRESSION: 1. Moderate cervical disc degeneration with thickened ligamentum flavum, uncovertebral spurring and facet arthropathy as described. The spinal canal narrowing is most noticeable at C5-C6. 2. Varying degrees of bilateral neural foraminal stenosis and additional findings as above. 3. Partially imaged nonspecific bilateral cervical chain lymph nodes. Request correlation with patient's history and physical examination. THIS IS AN ELECTRONICALLY VERIFIED FINAL REPORT 09/07/2024 9:22 AM - Electronically signed by Mendez Hoffman D.O. AP: AP Report ID: [id number] Reading Location: [place] [address] Procedure Note Mendez Hoffman, DO - 09/07/2024 EXAM DESCRIPTION: MRI CERVICAL SPINE WO CONTRAST REASON FOR STUDY: cervicalgia Neck pain with numbness in RUE x several months TECHNIQUE: Sagittal and Axial imaging includes T1, T2, STIR and gradientecho sequences. COMPARISON: Cervical spine MRI dated 06/27/2017 and 02/01/2016.Cervical spine CT dated 12/08/2015. FINDINGS: ALIGNMENT: Reversal of the normal cervical lordosis. VERTEBRAE: No gross acute compression fracture in the cervical spine.If trauma is suspected then a CT has higher sensitivity for spinal fracturesand can be obtained as clinically indicated. Multilevel endplate degenerative changes and marginal spur formation, most noticeable from C4-C5 throughC6-C7, C2-C3 and to a lesser extent the remainder of the cervical levels. DISCS: Diffuse intervertebral disc height loss ranging up to moderate to severe. HARDWARE: None in the spine. CORD: No definite T2 hyperintense cord signal alteration is reproducedon 2 separate sequences. INDIVIDUAL LEVELS: C2-C3: Posterior disc osteophyte complex eccentric to the left flattensthe left ventral thecal sac. Thickened ligamentum flavum indents the dorsal thecal sac. No significant spinal canal stenosis. Uncovertebral spurringand facet arthropathy with moderate to severe left and mild proximal rightneural foraminal narrowing. C3-C4: Minor disc bulge and thickened ligamentum flavum. No significant spinal canal stenosis. Uncovertebral spurring and facet arthropathy withmild inferior left and no significant right neural foraminal narrowing. C4-C5: Posterior disc osteophyte complex flattens the left ventral cord. Dorsal CSF cleft is maintained. Uncovertebral spurring and facetarthropathy with moderate to severe left and mild right neural foraminal narrowing. C5-C6: Posterior disc osteophyte complex flattens the ventral thecal sac. Thickened ligamentum flavum. Aeic-ng-gfhbaurj right spinal canalstenosis. Uncovertebral spurring and facet arthropathy with moderate neuralforaminal narrowing. C6-C7: Posterior disc osteophyte complex without significant spinal canal stenosis. Uncovertebral spurring and facet arthropathy with mild neural foraminal narrowing. C7-T1: No significant disc bulge or spinal canal stenosis. Bilateralfacet arthropathy without significant neural foraminal narrowing. UPPER THORACIC: Incompletely imaged. No high-grade spinal canalstenosis. OTHER: Partially imaged nonspecific bilateral cervical chain lymph nodesof the neck as clinically indicated. Of the abdomen IMPRESSION: 1. Moderate cervical disc degeneration with thickened ligamentum flavum, uncovertebral spurring and facet arthropathy as described. The spinalcanal narrowing is most noticeable at C5-C6. 2. Varying degrees of bilateral neural foraminal stenosis and additional findings as above. 3. Partially imaged nonspecific bilateral cervical chain lymph nodes. Request correlation with patient's history and physical examination. THIS IS AN ELECTRONICALLY VERIFIED FINAL REPORT 09/07/2024 9:22 AM - Electronically signed by Mendez Hoffman D.O. AP: AP Report ID: [id number] Reading Location: [place] [address] us Jerilyn Ortega NP IMG MRI PROCEDURES Final Resu lt * (ABNORMAL) POCT glucose (09/02/2024 11:33 AM CDT) Glucose, POC 237(H) 70 - 199 mg/dL POC Performer [id number] NOAH Blood 09/02/2024 11:3 3 AM CDT 09/02/2024 11:33 AM CDT us Magda Barreto MD LAB POCT ORDERABLES [place] [address] [address] Department [place] [address] * LEFT HEART CATHETERIZATION WITH CORONARY ANGIOGRAPHY AND WITH AND WITHOUT LEFT VENTRICULOGRAM, VASCULAR ACCESS US GUIDANCE (09/02/2024 10:54 AM CDT) Anatomical Region Laterality Modality X-Ray Angiograph y Narrative 09/02/2024 1:24 PM CDT CARDIAC CATHETERIZATION REPORT Ashly Lamas IP ENCOUNTER: [id number] Date of Procedure: 09/02/2024 BIRTHDATE: 1985 HEALTH AND SAFETY CONSULTANT: Fabio Hung MD REFERRING PHYSICIAN: Dr. Huizar PREPROCEDURE DIAGNOSES: Unstable angina PROCEDURES PERFORMED: Moderate sedation that started at 1030 and ended at 1054 using 2mg of Versed and 150mcg of fentanyl. Benadryl 50mg and zofran 4mg IV was also administered. The registered nurse was Milena Diego. Selective left and right coronary angiogram. Left heart catheterization with measurement of LVEDP and gradient across the aortic valve. FINDINGS: 1. Left main: The left main coronary artery is widely patent without any significant obstructive disease. 2. Left anterior descending: The LAD and the diagonal branches have diffuse 10-20% stenosis. 3. Left circumflex: The left circumflex artery is a codominant vessel and the main marginal branches have diffuse 10-20% stenosis. 4. Right coronary artery: The RCA is a small caliber codominant vessel that has 30-40% proximal stenosis. 5. Left ventricle: A. End-diastolic pressure 12 mmHg. B. LV gram deferred. C. No significant gradient across aortic valve on catheter pullback. 6. Opening aortic pressure 119/76 and closing aortic pressure 128/63 7. Right iliofemoral angiogram: No high-grade stenosis by angiography of the visualized portions of the right common femoral artery, right profundus, right SFA, and right external iliac arteries ACCESS: Right common femoral artery COMPLICATIONS: None ESTIMATED BLOOD LOSS: 5 mL PROCEDURAL DESCRIPTION: Informed consent was obtained from patient. Patient was then brought into the mushroom laborer and was draped and prepped in the usual manner. Moderate sedation was given and the right wrist was examined a pulse. The pulse was weak and thready and thus ultrasound imaging was performed showing a very small vessel that is not suitable for sheath insertion. Therefore, the right groin was subcutaneously injected with 1% lidocaine. The right common femoral artery was accessed using a 6Fr sheath via a micropuncture needle and modified Seldinger technique. Selective left coronary angiogram was done using a JL3.5 catheter with the tip of the catheter placed in the left main coronary artery. Selective right coronary angiogram was done using JR4 catheter with the tip of the catheter placed in the right coronary artery. The JR4 diagnostic catheter was advanced across the aortic valve into the left ventricle to obtain measurement of LVEDP and the gradient across aortic valve. Angioseal was used for closure. CONCLUSIONS Nonobstructive coronary artery disease PLAN Continue aspirin 81 mg p.o. daily, Lopressor 12.5 mg p.o. b.i.d., and rosuvastatin 40 mg every evening Patient can be discharged today and follow up with me outpatient in clinic Fabio Hung MD CV CARDIAC CATH PROCEDURES Final Result * (ABNORMAL) POCT glucose (09/02/2024 8:09 AM CDT) [facility] Glucose, POC 218(H) 70 - 199 mg/dL POC Performer [id number] NOAH TERRY Blood 09/02/2024 8:09 AM CDT 09/02/2024 8:09 AM CDT Magda Barreto MD LAB POCT ORDERABLES - DEVICE Final Result NOAH [address] Department [place] [address] * eGFR (09/02/2024 4:17 AM CDT) [facility] eGFR >90 >=60 mL/min/1. 73 m2 Comment: Interpretive Data Reference Interval Normal >/= 90 mL/min/1.73m2 Mildly decreased* 60 - 89 mL/min/1.73m2 Mildly to moderately decreased 45 - 59 mL/min/1.73m2 Moderately to severely decreased 30 - 44 mL/min/1.73m2 Severely decreased 15 - 29 mL/min/1.73m2 Kidney Failure < 15 mL/min/1.73m2 *Relative to young adult level Estimated glomerular filtration rate is determined by the 2020 CKD-EPI equation recommended by the National Kidney Foundation (A Unifying Approach to GFR Estimation: Recommendations of the NKF-ASK Task Force on Reassessing the Inclusion of Race in Diagnosing Kidney Disease, JASN 2020). The CKD-EPI equation should not be used for patients with unstable renal function and has not been validated in children and those over 70. Current interpretive data was last reviewed 2021. Blood 09/02/2024 4:17 AM CDT 09/02/2024 4:27 AM CDT Joshua Huizar MD LAB BLOOD ORDERABLES F inal Result [facility] [address] Department of Laboratories [place], [place] [id number] * (ABNORMAL) Differential, auto (09/02/2024 4:17 AM CDT) Neutrophil abs 4.62 1.50 - 6.50 K/cumm Imm gran abs 0.08 0.00 - 0.10 K/cumm [facility] Lymphocyte abs 5.42(H) 0.80 - 3.30 K/cumm [facility] Monocyte abs 1.09(H) 0.20 - 0.80 K/cumm [facility] Eosinophil abs 0.43 0.00 - 0.50 K/cumm [facility] Basophil abs 0.08 0.00 - 0.10 K/cumm [facility] Neutrophil pct 39.4 % [facility] Comment: Differential consistent with previous result. Interpretive Data Percent cell count reference ranges are not reported, since discordance with absolute values may lead to misinterpretation of CBC data. Current Interpretive Data was last revised on 2017. Imm gran pct 0.7 % [facility] Comment: Interpretive Data Percent cell count reference ranges are not reported, since discordance with absolute values may lead to misinterpretation of CBC data. Current Interpretive Data was last revised on 2017. Lymphocyte pct 46.2 % [facility] Comment: Interpretive Data Percent cell count reference ranges are not reported, since discordance with absolute values may lead to misinterpretation of CBC data. Current Interpretive Data was last revised on 2017. Monocyte pct 9.3 % [facility] Comment: Interpretive Data Percent cell count reference ranges are not reported, since discordance with absolute values may lead to misinterpretation of CBC data. Current Interpretive Data was last revised on 2017. Eosinophil pct 3.7 % [facility] Comment: Interpretive Data Percent cell count reference ranges are not reported, since discordance with absolute values may lead to misinterpretation of CBC data. Current Interpretive Data was last revised on 2017. Basophil pct 0.7 % [facility] Comment: Interpretive Data Percent cell count reference ranges are not reported, since discordance with absolute values may lead to misinterpretation of CBC data. Current Interpretive Data was last revised on 2017. Blood 09/02/2024 4:17 AM CDT 09/02/2024 4:27 AM CDT us Joshua Huizar MD LAB BLOOD ORDERABLES F inal Result [facility] [address] Department [place] [address] * (ABNORMAL) CBC with auto differential (09/02/2024 4:17 AM CDT) WBC 11.72(H) 3.80 - 9.90 K/cumm Hgb 13.8 11.9 - 15.5 g/dL [facility] Hct 41.7 35.6 - 45.5 % [facility] Plt 347 150 - 400 K/cumm [facility] MPV 9.3 9.1 - 12.3 fL [facility] RBC 4.70 3.90 - 5.20 M/cumm [facility] MCV 88.7 81.3 - 96.4 fL [facility] MCH 29.4 27.1 - 33.3 pg [facility] MCHC 33.1 32.3 - 35.7 g/dL [facility] RDW CV 12.8 11.1 - 14.9 % [facility] RDW SD 41.7 35.7 - 48.1 fL [facility] NRBC abs 0.00 0.00 - 0.01 K/cumm [facility] Morphologic Screen Results confirmed by manual morphology review. [facility] Blood 09/02/2024 4:17 AM CDT 09/02/2024 4:27 AM CDT Joshua Huizar MD LAB BLOOD ORDERABLES E dited Result - Final Performing Organization Address [facility] Co de Phone Number NOAH [phone] [facility] [place] [address] * Magnesium (09/02/2024 4:17 AM CDT) Magnesium 1.9 1.4 - 2.5 mg/dL Blood 09/02/2024 4:17 AM CDT 09/02/2024 4:27 AM CDT Joshua Huizar MD LAB BLOOD ORDERABLES F inal Result Performing Organization Address [facility] de Phone Number NOAH TERRY [address] [place] [address] * (ABNORMAL) Creatine kinase (CK), total (09/02/2024 4:17 AM CDT) CK 814(H) 30 - 200 Units/L Blood 09/02/2024 4:17 AM CDT 09/02/2024 4:27 AM CDT Joshua Huizar MD LAB BLOOD ORDERABLES F inal Result Performing Organization Address [facility] Co de Phone Number NOAH [address] [place] [address] * Basic metabolic panel (09/02/2024 4:17 AM CDT) Sodium 138 135 - 145 mmol/L Potassium, pl 4.9 3.3 - 4.9 mmol/L [facility] Chloride 102 97 - 110 mmol/L [facility] CO2 25 22 - 32 mmol/L [facility] Anion gap 11 2 - 15 mmol/L [facility] BUN 12 6 - 25 mg/dL [facility] Creatinine 0.79 0.60 - 1.10 mg/dL [facility] Glucose 177 70 - 199 mg/dL [facility] Comment: Interpretive Data Fasting glucose >/= 126 mg/dl is diagnostic for diabetes. Fasting is defined as no caloric intake for at least 8 hours. Fasting glucose between 100 mg/dl to 125 mg/dl is diagnostic of prediabetes. In a patient with classic symptoms of hyperglycemia or hyperglycemic crisis, a random glucose >/= 200 mg/dl is diagnostic for diabetes. In the absence of unequivocal hyperglycemia, results should be confirmed by repeat testing. The classification and Diagnosis of Diabetes Diabetes Care 2021; 46: S19-S40. Current interpretive data was last revised 2022. Calcium 9.5 8.5 - 10.3 mg/dL [facility] Blood 09/02/2024 4:17 AM CDT 09/02/2024 4:27 AM CDT Joshua Huizar MD LAB BLOOD ORDERABLES F inal Result Performing Organization Address [facility] Co de Phone Number NOAH TERRY [address] [place] [address] * POCT glucose (09/02/2024 4:03 AM CDT) Glucose, POC 166 70 - 199 mg/dL POC Performer [id number] [facility] Blood 09/02/2024 4:03 AM CDT 09/02/2024 4:03 AM CDT Joshua Huizar MD LAB POCT ORDERABLES - DEVICE Final Result Performing Organization Address [facility] Co de Phone Number NOAH TERRY [address] Department [place] [address] * POCT hCG, urine (09/01/2024 10:05 PM CDT) HCG, ur, POC Negative Negative Lot Number [id number] QC Backgroud Clear Acceptable QC Control Line Acceptable Urine 09/01/2024 10:0 5 PM CDT Juli Castaneda MD POINT OF CARE TEST ORD ERABLES Final Result * Troponin T high-sensitivity 4-hour (09/01/2024 9:16 PM CDT) Trop T hs <6 <=14 ng/L Comment: Interpretive Data For further hscTnT resources including the diagnostic algorithm and an aid in interpretation, copy and paste this link: [email or web address] Interpretive Data last revised 2020. Trop T hs delta 0 ng/L [facility] Trop T hs interp Insignificant [facility] Blood 09/01/2024 9:16 PM CDT 09/01/2024 9:21 PM CDT Cinthia FAIRBANKS LAB BLOOD ORDERABLES Luanne l Result [facility] [address] Department [place] [address] * Urinalysis reflex to microscopic and culture Urine (09/01/2024 9:16 PM CDT) Color, ur Straw Yellow Clarity, ur Clear Clear [facility] Specific gravity, ur 1.007 1.003 - 1.030 [facility] pH, urine 6.5 [facility] Comment: Interpretive Data U rine pH is affected by diet, medications, systemic acid-base disturbances, and renal tubular function. pH may affect urinary stone formation. For example, urine pH below 6.0 may help reduce the tendency for calcium phosphate stones and pH greater than 6.0 may reduce the tendency for uric acid stone formation. Source: [facility] Current Interpretive Data was last revised on 2017 Protein, ur ql Negative Negative [facility] Glucose, ur ql Negative Negative [facility] Ketones, ur Negative Negative [facility] Bilirubin, ur Negative Negative [facility] Blood, ur Negative Negative [facility] Urobilinogen, ur <2.0 <2.0 mg/dL [facility] Nitrite, ur Negative Negative [facility] Leukocyte esterase, ur Negative Negative [facility] UA reflex comment Reflex conditions for microscopic UA and culture not met. [facility] Urine 09/01/2024 9:16 PM CDT 09/01/2024 9:21 PM CDT Juli Castaneda MD LAB MICROBIOLOGY - GEN ERAL ORDERABLES Final Result Performing Organization Address [facility] Co de Phone Number [facility] [address] Department [place] [address] * D-dimer, quantitative (09/01/2024 9:16 PM CDT) D-Dimer 391 <=499 ng/mL FEU Comment: Interpretive data FDA approved the D-dimer, in conjunction with a low or moderate pretest probability score, to exclude venous thromboembolic events (VTE) (PE and DVT) in outpatients when the D-dimer result is < 500 ng/ml FEU. Evidence supports using an age-adjusted D-dimer cut-off for outpatients older than 50 (age x 10) to improve specificity without sacrificing sensitivity. Example: age 68, VTE cut-off 680 ng/ml FEU. References; Schouten HT et al. Brit Med J. 2013;346:f2492. Aden et al. Annals Int Med. 2015;163:701-11. Current interpretive data was last revised on 2019. Blood 09/01/2024 9:16 PM CDT 09/01/2024 9:22 PM CDT Juli Castaneda MD LAB BLOOD ORDERABLES F inal Result Performing Organization Address City/[facility]/ZIP Co de Phone Number [facility] [address] [facility] [place] [address] * Lipase (09/01/2024 9:16 PM CDT) Lipase 21 10 - 99 Units/L Blood 09/01/2024 9:16 PM CDT 09/01/2024 9:21 PM CDT Juli Castaneda MD LAB BLOOD ORDERABLES F inal Result Performing Organization Address [facility] Co de Phone Number [facility] [address] [facility] [place] [address] * Troponin T high-sensitivity 2-hour (09/01/2024 7:13 PM CDT) Pathologist [facility] Trop T hs 10 <=14 ng/L Comment: Interpretive Data For further hscTnT resources including the diagnostic algorithm and an aid in interpretation, copy and paste this link: https://nrl.testcatalog.org/show/hsTrop Current Interpretive Data last revised 2020. Trop T hs delta 4 ng/L [facility] Trop T hs interp Insignificant [facility] Blood 09/01/2024 7:13 PM CDT 09/01/2024 7:15 PM CDT Cinthia FAIRBANKS LAB BLOOD ORDERABLES Luanne l Result Performing Organization Address [facility]/ZIP Co de Phone Number [facility] [address] [place] [address] * (ABNORMAL) Creatine kinase (CK), total (09/01/2024 7:13 PM CDT) CK 1,018(H) 30 - 200 Units/L Blood 09/01/2024 7:13 PM CDT 09/01/2024 8:29 PM CDT Juli Castaneda MD LAB BLOOD ORDERABLES F inal Result NOAH [address] [facility] Department [place] [address] * XR Chest PA Lateral 2 Views (09/01/2024 6:30 PM CDT) Anatomical Region Laterality Modality Body, Chest N/A Computed Radiogr aphy 09/01/2024 6:34 PM CDT Impressions 09/01/2024 6:34 PM CDT No active disease. Electronically signed by: Michael Marroquin M.D. Narrative 09/01/2024 6:34 PM CDT EXAMINATION: XR CHEST PA LATERAL 2 VIEWS DATE: 09/01/2024 6:30 PM HISTORY: Shortness of breath FINDINGS: No infiltrate, effusion or pneumothorax is present. Heart size, mediastinum and pulmonary vascularity are normal. Procedure Note Michael Marroquin MD - 09/01/2024 EXAMINATION: XR CHEST PA LATERAL 2 VIEWS DATE: 09/01/2024 6:30 PM HISTORY: Shortness of breath FINDINGS: No infiltrate, effusion or pneumothorax is present. Heart size, mediastinum and pulmonary vascularity are normal. IMPRESSION: No active disease. Electronically signed by: Michael Marroquin M.D. Juli Castaneda MD IMG XR PROCEDURES Luanne l Result * Troponin T high-sensitivity series (baseline, 2hr, 4hr, 6hr) (09/01/2024 5:35 PM CDT) Trop T hs 6 <=14 ng/L Comment: Interpretive Data For further hscTnT resources including the diagnostic algorithm and an aid in interpretation, copy and paste this link: https://nrl.testcatalog.org/show/hsTrop Current Interpretive Data last revised 2020. Blood 09/01/2024 5:35 PM CDT 09/01/2024 5:35 PM CDT Juli Castaneda MD LAB BLOOD ORDERABLES E dited Result - Final Performing Organization Address City/[facility] Co de Phone Number NOAH TERRY [address] [place] [address] * eGFR (09/01/2024 5:35 PM CDT) eGFR >90 >=60 mL/min/1. 73 m2 Comment: Interpretive Data Reference Interval Normal >/= 90 mL/min/1.73m2 Mildly decreased* 60 - 89 mL/min/1.73m2 Mildly to moderately decreased 45 - 59 mL/min/1.73m2 Moderately to severely decreased 30 - 44 mL/min/1.73m2 Severely decreased 15 - 29 mL/min/1.73m2 Kidney Failure < 15 mL/min/1.73m2 *Relative to young adult level Estimated glomerular filtration rate is determined by the 2020 CKD-EPI equation recommended by the National Kidney Foundation (A Unifying Approach to GFR Estimation: Recommendations of the NKF-ASK Task Force on Reassessing the Inclusion of Race in Diagnosing Kidney Disease, JASN 2020). The CKD-EPI equation should not be used for patients with unstable renal function and has not been validated in children and those over 70. Current interpretive data was last reviewed 2021. Blood 09/01/2024 5:35 PM CDT 09/01/2024 5:35 PM CDT Juli Castaneda MD LAB BLOOD ORDERABLES F inal Result Performing Organization Address City/[facility]/ZIP Co de Phone Number NOAH TERRY [address] [place] [address] * (ABNORMAL) Differential, auto (09/01/2024 5:35 PM CDT) Neutrophil abs 3.43 1.50 - 6.50 K/cumm Imm gran abs 0.06 0.00 - 0.10 K/cumm [facility] Lymphocyte abs 4.45(H) 0.80 - 3.30 K/cumm [facility] Monocyte abs 0.84(H) 0.20 - 0.80 K/cumm [facility] Eosinophil abs 0.32 0.00 - 0.50 K/cumm [facility] Basophil abs 0.06 0.00 - 0.10 K/cumm [facility] Neutrophil pct 37.3 % [facility] Comment: Interpretive Data Percent cell count reference ranges are not reported, since discordance with absolute values may lead to misinterpretation of CBC data. Current Interpretive Data was last revised on 2017. Imm gran pct 0.7 % [facility] Comment: Interpretive Data Percent cell count reference ranges are not reported, since discordance with absolute values may lead to misinterpretation of CBC data. Current Interpretive Data was last revised on 2017. Lymphocyte pct 48.6 % [facility] Comment: Interpretive Data Percent cell count reference ranges are not reported, since discordance with absolute values may lead to misinterpretation of CBC data. Current Interpretive Data was last revised on 2017. Monocyte pct 9.2 % [facility] Comment: Interpretive Data Percent cell count reference ranges are not reported, since discordance with absolute values may lead to misinterpretation of CBC data. Current Interpretive Data was last revised on 2017. Eosinophil pct 3.5 % [facility] Comment: Interpretive Data Percent cell count reference ranges are not reported, since discordance with absolute values may lead to misinterpretation of CBC data. Current Interpretive Data was last revised on 2017. Basophil pct 0.7 % [facility] Comment: Interpretive Data Percent cell count reference ranges are not reported, since discordance with absolute values may lead to misinterpretation of CBC data. Current Interpretive Data was last revised on 2017. Blood 09/01/2024 5:35 PM CDT 09/01/2024 5:35 PM CDT Juli Castaneda MD LAB BLOOD ORDERABLES F inal Result NOAH TERRY [address] Department [place] [address] * Pro B-type natriuretic peptide (09/01/2024 5:35 PM CDT) NT-proBNP <36 <=300 pg/mL Comment: Interpretive Comments: A. Dyspnea in Acute Care Setting All Ages: < 300 pg/ml, acute heart failure unlikely. < 50 yrs: 300 - 450 pg/ml, further investigation warranted. > 450 pg/ml, acute heart failure likely. 50 - 74 yrs: 300 - 900 pg/ml, further investigation warranted. > 900 pg/ml, acute heart failure likely . > or = 75 yrs: 450 - 1800 pg/ml, further investigation warranted. > 1800 pg/ml, acute heart failure likely. B. Non-acute Setting < 75 yrs < 125 pg/ml, rules out heart failure. > or = 125 pg/ml, further investigation warranted. > or = 75 yrs < 450 pg/ml, rules out heart failure. > or = 450 pg/ml, further investigation warranted. - Knowledge of each individual patient's NT-proBNP range may be more useful than using similar cut-points for every patient. Please note that marked elevations in NT-proBNP levels may be observed in state other than Left Ventricular Congestive Failure, including: acute coronary syndromes, right heart strain/failure (including pulmonary embolism and cor pulmonale), critical illness, renal failure, as well as advanced age. - References: 1. Arnoldo JL et.al. Eur Heart J. 2006:27:330-337. 2. Genevieve RW, Taylor AM. J. AM Narciso Cardiol: Cardiovasc Imag. 2009;2: 216- 225. Interpretive Data Last Revised Date: 2018. Blood 09/01/2024 5:35 PM CDT 09/01/2024 5:35 PM CDT us Juli Castaneda MD LAB BLOOD ORDERABLES F inal Result NOAH TERRY [address] [place] [address] * CBC with auto differential (09/01/2024 5:35 PM CDT) Pathologist [facility] WBC 9.16 3.80 - 9.90 K/cumm Hgb 13.5 11.9 - 15.5 g/dL NOAH TERRY Hct 40.5 35.6 - 45.5 % [facility] Plt 338 150 - 400 K/cumm [facility] MPV 9.4 9.1 - 12.3 fL [facility] RBC 4.57 3.90 - 5.20 M/cumm [facility] MCV 88.6 81.3 - 96.4 fL [facility] MCH 29.5 27.1 - 33.3 pg [facility] MCHC 33.3 32.3 - 35.7 g/dL [facility] RDW CV 12.6 11.1 - 14.9 % [facility] CH RDW SD 40.9 35.7 - 48.1 fL [facility] NRBC abs 0.00 0.00 - 0.01 K/cumm [facility] Morphologic Screen Results confirmed by manual morphology review. [facility] Blood 09/01/2024 5:35 PM CDT 09/01/2024 5:35 PM CDT Juli Castaneda MD LAB BLOOD ORDERABLES E dited Result - Final [facility] [address] Department of Laboratories [place] [id number] * Comprehensive metabolic panel (09/01/2024 5:35 PM CDT) Sodium 137 135 - 145 mmol/L Potassium, pl 4.3 3.3 - 4.9 mmol/L [facility] Chloride 101 97 - 110 mmol/L [facility] CO2 23 22 - 32 mmol/L [facility] Anion gap 13 2 - 15 mmol/L [facility] BUN 13 6 - 25 mg/dL [facility] Creatinine 0.71 0.60 - 1.10 mg/dL [facility] Glucose 131 70 - 199 mg/dL [facility] Comment: Interpretive Data Fasting glucose >/= 126 mg/dl is diagnostic for diabetes. Fasting is defined as no caloric intake for at least 8 hours. Fasting glucose between 100 mg/dl to 125 mg/dl is diagnostic of prediabetes. In a patient with classic symptoms of hyperglycemia or hyperglycemic crisis, a random glucose >/= 200 mg/dl is diagnostic for diabetes. In the absence of unequivocal hyperglycemia, results should be confirmed by repeat testing. The classification and Diagnosis of Diabetes Diabetes Care 2021; 46: S19-S40. Current interpretive data was last revised 2022. Calcium 9.7 8.5 - 10.3 mg/dL [facility] Bilirubin, total 0.2 0.1 - 1.2 mg/dL [facility] Protein, pl 7.6 6.5 - 8.5 g/dL [facility] Albumin 4.1 3.5 - 5.0 g/dL [facility] Alk phos 101 40 - 130 Units/L [facility] ALT 32 7 - 45 Units/L [facility] AST 43 10 - 45 Units/L [facility] Blood 09/01/2024 5:35 PM CDT 09/01/2024 5:35 PM CDT Juli Castaneda MD LAB BLOOD ORDERABLES F inal Result Performing Organization Address City/State/[facility] Co de Phone Number [facility] [address] Department [place] [address] * Respiratory pathogen panel Nasopharyngeal (09/01/2024 5:07 PM CDT) Pathologist [facility] Influenza A RNA Not Detected Not Detected Influenza B RNA Not Detected Not Detected [facility] RSV RNA Not Detected Not Detected [facility] COVID-19 RNA Not Detected Not Detected [facility] Coronavirus 229E RNA Not Detected Not Detected [facility] Coronavirus HKU1 RNA Not Detected Not Detected [facility] Coronavirus NL63 RNA Not Detected Not Detected [facility] Coronavirus OC43 RNA Not Detected Not Detected [facility] Adenovirus DNA Not Detected Not Detected [facility] Metapneumovirus RNA Not Detected Not Detected [facility] Rhinovirus/Enterov irus RNA Not Detected Not Detected [facility] Parainfluenza 1 RNA Not Detected Not Detected [facility] Parainfluenza 2 RNA Not Detected Not Detected [facility] Parainfluenza 3 RNA Not Detected Not Detected [facility] Parainfluenza 4 RNA Not Detected Not Detected [facility] B. pertussis DNA Not Detected Not Detected [facility] B. parapertussis DNA Not Detected Not Detected [facility] C. pneumoniae DNA Not Detected Not Detected [facility] M. pneumoniae DNA Not Detected Not Detected NOAH TERRY Comment: Interpretive Data The bubl FilmArray Respiratory Panel (RP2.1) assay is a multiplexed real-time PCR based nucleic acid test capable of simultaneous qualitative detection and identification of multiple respiratory viral and bacterial nucleic acids, including SARS Coronavirus 2 (the causative agent of COVID-19). The following bacteria, viruses and virus subtypes can be identified using the FilmArray RP2.1 assay: Bordetella pertussis, Bordetella parapertussis, Chlamydia pneumoniae, Mycoplasma pneumoniae, Adenovirus, SARS Coronavirus 2, seasonal coronaviruses (Coronavirus HKU1, Coronavirus NL63, Coronavirus 229E, and Coronavirus OC43), Influenza A, Influenza A subtype H1, Influenza A subtype H3, Influenza A subtype 2009 H1, Influenza B, Metapneumovirus, Parainfluenza 1, Parainfluenza 2, Parainfluenza 3, Parainfluenza 4, RSV, Rhinovirus/Enterovirus. Due to the genetic similarity between human Rhinovirus and Enterovirus, the FilmArray RP2.1 assay cannot reliably differentiate them. Coronavirus OC43 may cross-react with some isolates of Coronavirus HKU1. A dual positive result may be due to cross-reactivity or may indicate a co- infection. The detection and identification of specific viral and bacterial nucleic acids from individuals exhibiting signs and symptoms of a respiratory infection aids in the diagnosis of respiratory infection if used in conjunction with other clinical and epidemiological information. The results of this test should not be used as the sole basis for diagnosis, treatment, or other management decisions. Negative results in the setting of a respiratory illness may be due to infection with pathogens that are not detected by this test. Positive results do not rule out infection/co-infection with other organisms. The agent(s) detected by the FilmArray RP2.1 may not be the definite cause of disease. Additional testing (lab, imaging, etc.) may be necessary when evaluating a patient with possible respiratory tract infection. The FilmArray RP2.1 assay has FDA clearance for testing of MATERNAL CHILD NURSE swabs. The performance characteristics of this assay have been determined by [facility]. Current interpretive data was last revised on 2020. Nasopharyngeal 09/01/2024 5: 07 PM CDT 09/01/2024 5:15 PM CDT Narrative NOAH - 09/01/2024 7:00 PM CDT Is the Patient experiencing symptoms consistent with COVID?->Yes Surveillance testing for transplant patient?->No Juli Castaneda MD LAB MICROBIOLOGY - GEN ERAL ORDERABLES Final Result Performing Organization Address City/[facility] Co de Phone Number NOAH [address] Department [place] [address] * ECG 12 lead (09/01/2024 5:03 PM CDT) 09/01/2024 5:03 PM CDT Narrative [facility] - 09/01/2024 9:20 PM CDT Vent Rate: 114 bpm RR Interval: 524 msec [place] Interval: 126 msec QRS Duration: 68 msec QT Interval: 308 msec QTC Interval: 376 msec P-R-T [place]: 60 - -14 - 70 degrees IMPRESSION: SINUS TACHYCARDIA NONSPECIFIC ST \T\ T-WAVE ABNORMALITY ABNORMAL RHYTHM ECG INTERPRETATION BASED ON A DEFAULT AGE OF 40 YEARS Electronically Signed By: Dr. Eleonora Chicas [facility] Juli Castaneda MD ECG ORDERABLES Final Result Performing Organization Address [facility] de Phone Number [facility] [employer] [facility] * eGFR (08/18/2024 9:10 AM CDT) eGFR >90 >=60 mL/min/1. 73 m2 Comment: Interpretive Data Reference Interval Normal >/= 90 mL/min/1.73m2 Mildly decreased* 60 - 89 mL/min/1.73m2 Mildly to moderately decreased 45 - 59 mL/min/1.73m2 Moderately to severely decreased 30 - 44 mL/min/1.73m2 Severely decreased 15 - 29 mL/min/1.73m2 Kidney Failure < 15 mL/min/1.73m2 *Relative to young adult level Estimated glomerular filtration rate is determined by the 2020 CKD-EPI equation recommended by the National Kidney Foundation (A Unifying Approach to GFR Estimation: Recommendations of the NKF-ASK Task Force on Reassessing the Inclusion of Race in Diagnosing Kidney Disease, JASN 2020). The CKD-EPI equation should not be used for patients with unstable renal function and has not been validated in children and those over 70. Current interpretive data was last reviewed 2021. Testing performed by: [facility], [address] [place] [address]., [id number] Blood 08/18/2024 9:10 AM CDT 08/18/2024 12:43 PM CDT us Yang Fagan MD LAB BLOOD ORDERABLES [facility] al Result NOAH COSBY (RAYMOND) 1 [facility] Department [place] [address] * Urinalysis reflex to microscopic and culture Urine, clean voided (08/18/2024 9:10 AM CDT) Color, ur Straw Yellow Comment:Testing performed by : [address] [address] Clarity, ur Clear Clear NOAH Kent ([place]D) Comment:Testing performed by : [address] [address] Specific gravity, ur 1.006 1.003 - 1.030 NOAH COSBY (RAYMOND) Comment:Testing performed by : [address] [address] pH, urine 5.5 NOAH COSBY ([place]) Comment: Interpretive Data U rine pH is affected by diet, medications, systemic acid-base disturbances, and renal tubular function. pH may affect urinary stone formation. For example, urine pH below 6.0 may help reduce the tendency for calcium phosphate stones and pH greater than 6.0 may reduce the tendency for uric acid stone formation. Source: [facility] [place] Current Interpretive Data was last revised on 2017 Testing performed by: [address] [address] Protein, ur ql Negative Negative [facility] (NILE) Comment:Testing performed by : [address] [address] Glucose, ur ql Negative Negative [facility] (NILE) Comment:Testing performed by : [facility], [address] [place] [address]., [address] Ketones, ur Negative Negative NOAH A (NILE) Comment:Testing performed by : [address] [address] Bilirubin, ur Negative Negative NO[facility] (NILE) Comment:Testing performed by : [facility], [address] [place] [address], [address] Blood, ur Negative Negative [facility] (NILE) Comment:Testing performed by : [facility], [address] [place] [address], [address] Urobilinogen, ur <2.0 <2.0 mg/dL NOAH [facility] (NILE) Comment:Testing performed by : [address], [address] Nitrite, ur Negative Negative NOAH A (NILE) Comment:Testing performed by : [address], [address] Leukocyte esterase, ur Negative Negative NOAH COSBY (NILE) Comment:Testing performed by : [address], [address] UA reflex comment Reflex conditions for microscopic UA and culture not met. NOAH COSBY (NILE) Comment:Testing performed by : [address], [address] Urine, clean voided 08/18/2024 9:10 AM CDT 08/18/2024 9:11 AM CDT Yang Fagan MD LAB MICROBIOLOGY - GENER AL ORDERABLES Final Result NOAH COSBY (NILE) 1 [facility] Department [place] [address] * Albumin Creatinine Ratio, Urine (08/18/2024 9:10 AM CDT) Albumin Ur <12.0 mg/L Comment: Interpretive Data No reference range established. Current interpretive data was last revised 2018. Testing performed by: [address], [address] Creatinine Ur 24.7 mg/dL NOAH COSBY (NILE) Comment: Interpretive Data No reference range established. Current interpretive data was last revised 2018. Testing performed by: [facility], [address] [place] [address]., [address] Albumin Creatinine Ratio, Ur See Comment 1 - 29 NOAH COSBY (NILE) Comment: Unable to calculate Testing performed by: [facility], [address] [place] [address]., [address] Urine 08/18/2024 9:10 AM CDT 08/18/2024 9:10 AM CDT us Yang Fagan MD LAB URINE ORDERABLES Fin al Result Performing Organization Address City/[facility]/ZIP Co de Phone Number NOAH COSBY (RAYMOND) 1 [facility] [place] [address] * (ABNORMAL) Cholesterol, LDL, direct (08/18/2024 9:10 AM CDT) LDL Cholesterol, Direct 154(H) <=129 mg/dL Comment: Interpretive Data Ages < or = 19 years Acceptable: <110 mg/dL Borderline high: 110-129 mg/dL High: >or= 130 mg/dL Ages > or = 20 years Optimal: <100 mg/dL Near optimal: 100-129 mg/dL Borderline high: 130-159 mg/dL High: >160 mg/dL Literature References: 1. Expert Panel on Integrated Guidelines for Cardiovascular Health and Risk Reduction in Children and Adolescents. Pediatrics 2011;128:S213 2. NCEP Expert Panel. Circulation 2004;110:227 Current Interpretive Data was last revised on 2018. Testing performed by: [facility], [address] [place] [address]., [address] Blood 08/18/2024 9:10 AM CDT 08/18/2024 9:10 AM CDT us Yang Fagan MD LAB BLOOD ORDERABLES Fin al Result Performing Organization Address City/[facility]/ZIP Co de Phone Number NOAH COSBY ([place]) 1 [facility] [place] [address] * (ABNORMAL) Hemoglobin A1c (08/18/2024 9:10 AM CDT) Hgb A1C 8.9(H) 4.0 - 5.6 % Comment:Testing performed by : [address] [address] Estimated Average Glucose 209 mg/dL NOAH COSBY (NILE) Comment: The ADA recommends reporting an estimated Average Glucose (eAG) with all Hemoglobin A1c results using the equation derived from a study of 507 normal and diabetic adults. Minority populations were underrepresented and children were not included. (Diabetes Care 31:2187-7556, 2008). The eAG is not equivalent to a fasting glucose. Testing performed by: [facility], [address] [place] [address]., [address] Blood 08/18/2024 9:10 AM CDT 08/18/2024 9:10 AM CDT Yang Fagan MD LAB BLOOD ORDERABLES Fin al Result NOAH COSBY (NILE) 1 [facility] [place] [address] * (ABNORMAL) Lipid panel (08/18/2024 9:10 AM CDT) Cholesterol 249(H) 30 - 199 mg/dL Comment: Interpretive Data Ages < or = 19 years Acceptable: <170 mg/dL Borderline high: 170-199 mg/dL High: >or= 200 mg/dL Ages > or = 20 years Desirable: <200 mg/dL Borderline high: 200-239 mg/dL High: >or= 240 mg/dL Literature References: 1. Expert Panel on Integrated Guidelines for Cardiovascular Health and Risk Reduction in Children and Adolescents. Pediatrics 2011;128:S213 2. NCEP Expert Panel. Circulation 2004;110:227 Current Interpretive Data was last revised on 2018. Testing performed by: [facility], [address] [place] [address]., [address] Triglycerides 377(H) <=149 mg/dL NOAH COSBY (NILE) Comment: Interpretive Data Ages < or = 9 years Acceptable: <75 mg/dL Borderline high: 75-99 mg/dL High: >or= 100 mg/dL Ages 10 to 20 years Acceptable: <90 mg/dL Borderline high: 90-129 mg/dL High: >or= 130 mg/dL Ages > or = 20 years Desirable: <150 mg/dL Borderline high: 150-199 mg/dL High: 200-499 mg/dL Very high: >or= 499 mg/dL Literature References: 1. Expert Panel on Integrated Guidelines for Cardiovascular Health and Risk Reduction in Children and Adolescents. Pediatrics 2011;128:S213 2. NCEP Expert Panel. Circulation 2004;110:227 Current Interpretive Data was last revised on 2018. Testing performed by: [facility], [address] [place] [address]., [address] HDL 52 >=40 mg/dL NOAH COSBY (NILE) Comment: Interpretive Data Ages < or = 19 years Acceptable: >45 mg/dL Borderline low: 40-45 mg/dL Low: <40 mg/dL Ages > or = 20 years Desirable: >or= 60 mg/dL Low: <40 mg/dL Literature References: 1. Expert Panel on Integrated Guidelines for Cardiovascular Health and Risk Reduction in Children and Adolescents. Pediatrics 2011;128:S213 2. NCEP Expert Panel. Circulation 2004;110:227 Current Interpretive Data was last revised on 2018. Testing performed by: [facility], [address] [place] [address]., [address] LDL, calculated 130(H) <=129 mg/dL NOAH COSBY (NILE) Comment: Interpretive Data Ages < or = 19 years Acceptable: <110 mg/dL Borderline high: 110-129 mg/dL High: >or= 130 mg/dL Ages > or = 20 years Optimal: <100 mg/dL Near optimal: 100-129 mg/dL Borderline high: 130-159 mg/dL High: >160 mg/dL Calculated using the Anastacio LDL-C estimating equation. This equation was implemented on 2024. Prior to this date LDL-C was estimated using the Friedewald equation. Literature References: 1. Expert Panel on Integrated Guidelines for Cardiovascular Health and Risk Reduction in Children and Adolescents. Pediatrics 2011;128:S213 2. NCEP Expert Panel. Circulation 2004;110:227 3. Anastacio Molina et al. STEPHANY Cardiol. 2020 September 30;5(5):540-548. doi: 10.1001/jamacardio.2020.0013 Current Interpretive Data was last revised on 2024. Testing performed by: [address] [address] Non-HDL Cholesterol 197 mg/dL NOAH COSBY (NILE) Comment: Interpretive Data Ages < or = 19 years Acceptable: <120 mg/dL Borderline high: 120-144 mg/dL High: >145 mg/dL Ages > or = 20 years When triglycerides are >200 mg/dL, Non-HDL cholesterol is a secondary target of therapy with treatment goals that are 30 mg/dL greater than the LDL cholesterol target. Literature References: 1. Expert Panel on Integrated Guidelines for Cardiovascular Health and Risk Reduction in Children and Adolescents. Pediatrics 2011;128:S213 2. NCEP Expert Panel. Circulation 2004;110:227 Current Interpretive Data was last revised on 2018. Testing performed by: [address] [address] Chol/HDL ratio 5 CERNE R ALEA (NILE) Comment:Testing performed by : [address] [address] Blood 08/18/2024 9:10 AM CDT 08/18/2024 9:10 AM CDT us Yang Fagan MD LAB BLOOD ORDERABLES Fin al Result NOAH COSBY (RAYMOND) 1 [facility] [place] [address] * Basic metabolic panel (08/18/2024 9:10 AM CDT) Sodium 136 135 - 145 mmol/L Comment:Testing performed by : [address] [address] Potassium, pl 4.5 3.3 - 4.9 mmol/L NOAH COSBY (NILE) Comment:Testing performed by : [address] [address] Chloride 99 97 - 110 mmol/L [facility] (NILE) Comment:Testing performed by : [facility], [address] [place] [address]., [address] CO2 23 22 - 32 mmol/L [facility] (NILE) Comment:Testing performed by : [address] [address] Anion gap 14 2 - 15 mmol/L [facility] (NILE) Comment:Testing performed by : [facility], [address] [place] [address], [address] BUN 11 6 - 25 mg/dL [facility] (NILE) Comment:Testing performed by : [facility], [address] [place] [address], [address] Creatinine 0.60 0.60 - 1.10 mg/dL [facility] (NILE) Comment:Testing performed by : [facility], [address] [place] [address], [address] Glucose 169 70 - 199 mg/dL [facility] (NILE) Comment: Interpretive Data Fasting glucose >/= 126 mg/dl is diagnostic for diabetes. Fasting is defined as no caloric intake for at least 8 hours. Fasting glucose between 100 mg/dl to 125 mg/dl is diagnostic of prediabetes. In a patient with classic symptoms of hyperglycemia or hyperglycemic crisis, a random glucose >/= 200 mg/dl is diagnostic for diabetes. In the absence of unequivocal hyperglycemia, results should be confirmed by repeat testing. The classification and Diagnosis of Diabetes Diabetes Care 202; 46: S19-S40. Current interpretive data was last revised 2022. Testing performed by: [facility], [address] [place] [address], [address] Calcium 9.4 8.5 - 10.3 mg/dL [facility] (NILE) Comment:Testing performed by : [address], [address] Blood 08/18/2024 9:10 AM CDT 08/18/2024 9:10 AM CDT us Yang Fagan MD LAB BLOOD ORDERABLES Fin al Result NOAH COSBY (RAYMOND) 1 [facility] Department [place] [address] * Throat culture Throat (08/04/2024 12:54 PM REPLENISHMENT ASSOCIATE) Report Final Report: No growth of pathogens. Comment:Testing performed by : [facility], [address] [place]., [address] Throat 08/04/2024 12:5 4 PM REPLENISHMENT ASSOCIATE 08/04/2024 10:23 PM REPLENISHMENT ASSOCIATE Narrative NOAH - 08/07/2024 11:43 AM REPLENISHMENT ASSOCIATE Testing performed by [facility] ([phone]). Deanna FAIRBANKS LAB MICROBIOLOGY - GENER AL ORDERABLES Final Result NOAH [address] Department [place] [address] * POC Influenza A/B, COVID-19 antigen (08/04/2024 12:41 PM REPLENISHMENT ASSOCIATE) Influenza A Ag, POC Negative Negative [facility] EDW Influenza B Ag, POC Negative Negative [facility] COVID-19 Ag POC Presumptive Negative Presumptive Negative, Invalid [facility] Nasal 08/04/2024 12:4 1 PM REPLENISHMENT ASSOCIATE Deanna FAIRBANKS POINT OF CARE TEST ORDER ANAHI Final Result [facility] CC EDW [address] [place] [address] * POCT rapid strep A (08/04/2024 12:29 PM REPLENISHMENT ASSOCIATE) Rapid Strep A, POC Negative Negative Swab 08/04/2024 12:2 9 PM REPLENISHMENT ASSOCIATE Deanna FAIRBANKS POINT OF CARE TEST ORDER ANAHI Final Result * POCT glucose (06/14/2024 10:20 AM REPLENISHMENT ASSOCIATE) Glucose Blood, POC 216 mg/dL Blood 06/14/2024 10:2 0 AM REPLENISHMENT ASSOCIATE Result [facility] Rosanna Julien NP POINT OF CARE TEST ORDERABLES F inal Result * Diabetic Eye Exam (11/01/2023) 11/01/2023 Result [facility] Historical Provider HEALTH MAINTENANCE Final Result * TSH (09/05/2023 12:00 AM CDT) Pathologist [facility] Thyroid Stimulating Hormone 2.91 0.30 - 4.20 mcIUnit/mL Blood Venous blood specimen / Unknown 09/05/2023 09/05/2023 1:47 PM CDT Result [facility] Alis Castillo NP LAB BLOOD ORDERABLES Final Result [facility] [address] Department [place] [address] * DIABETES FOOT EXAM (10/01/2017) Pathologist [facility] Diabetic Foot Exam Unknown Result [facility] Historical Provider HEALTH MAINTENANCE Final Result * PAP SMEAR WITH HPV (12/31/2016) Pathologist [facility] Pap smear Normal Result [facility] Historical Provider HEALTH MAINTENANCE Final Result from Last 3 Months or Most Recently Relevant to Health Maintenance Insurance [employer] [place] [employer] [place] Sub[place] Plan / Payer (Ef fective 2024-Present) Name:Ashly Lamas Relation to Subscriber:Self Name:Ashly Lamas Payer ID:[id number] (NAIC) Type: OTHER Address: [address] [place] [address] Advance Directives For more information, please contact: [phone] * Full Code (Latest Code Status on File) Date Activated Date Inactivated Comments 09/01/2024 11:50 PM 09/02/2024 8:28 PM * Full Code Date Activated Date Inactivated Comments 11/01/2022 2:31 PM 11/01/2022 7:36 PM Care Teams [employer] Teacher Relationship Specialty Start Date End Date Yang Fagan MD [address] [address] PCP - General 08/27/19 [place] [address] [place] [address] Surgeon Orthopedic Surgery 11/01/22 Yang Fagan MD [address] [place] [address] Referring Physician Internal Medicine 09/02/24
--- OUTSIDE RECORDS SUMMARY | 2024-09-11 13:34 | XMS_ITS | Continuity of Care Document ---
Author Organization [facility] Address [address] [place] [address] Phone Care Team Providers Care Filenet Architect Name Role Phone Haja Shah MD Unavailable Unavailable Allergies, Adverse Reactions, Alerts Substance Reaction Status Criticality TAZOBACTAM SODIUM Active No Informa tion PIPERACILLIN SODIUM Active No Infor mation Medications Medication Instructions Dosage Effective Dates (start - stop) Status Comments Mobic 15 mg tablet take 1 tablet by oral route every day - Active Humalog U-100 Insulin 100 unit/mL subcutaneous cartridge inject by subcutaneous route per prescriber's instructions. Insulin dosing requires individualization. 0.00 - Active Levemir U-100 Insulin 100 unit/mL subcutaneous solution inject by subcutaneous route per prescriber's instructions. Insulin dosing requires individualization. 0.00 - Active neostigmine methylsulfate 2 mg/2 mL (1 mg/mL) intravenous syringe - Active VERAPAMIL HCL (unknown strength) Not Available - Active Procedures Procedure Date OFFICE/OUTPATIENT VISIT EST OFFICE/OUTPATIENT VISIT EST OFFICE/OUTPATIENT VISIT EST OFFICE/OUTPATIENT VISIT NEW OFFICE/OUTPATIENT VISIT NEW OFFICE/OUTPATIENT VISIT EST OFFICE/OUTPATIENT VISIT NEW OFFICE/OUTPATIENT VISIT EST OFFICE/OUTPATIENT VISIT EST OFFICE/OUTPATIENT VISIT EST OFFICE/OUTPATIENT VISIT EST Advance Directives Directive Yes / No Effective Date File Name No Information Encounters Encounter Description Practice Location Reason(s) For Visit Diagnoses Date Provider Providers Copied on Encounter OFFICE/OUTPA TIENT VISIT EST [facility], [address] [address], [place], [address], [place] tel:[phone] [facility] Other dislocation of left ulnohumeral joint, subsequent encounter 9 Alyssa Smyth. [address] [place], [place], [id number] . tel: [phone] [facility], [address] [address], [place], [address], [place] tel:[phone] [facility] No Information 9 Alyssa Smyth. [address] [place] [address], [id number] . tel: [phone] OFFICE/OUTPA TIENT VISIT [facility], [address] [place] [address], [place], [address], [place] tel:[phone] [facility] Other dislocation of left ulnohumeral joint, subsequent encounter 9 Alyssa Smyth. [address] [place] [address], [id number] . tel: [phone] OFFICE/OUTPA TIENT VISIT [facility], [address] [place] [address], [place], [address], [place] tel:[phone] [facility] Other dislocation of left ulnohumeral joint, subsequent encounter 9 Alyssa Smyth. [address] [place] [address], [id number] . tel: [phone] OFFICE/OUTPA TIENT VISIT [facility], [address] [place] [address], [address], [place] tel:[phone] [facility] Other dislocation of left ulnohumeral joint, subsequent encounter 9 Alyssa Smyth. [address] [place] [address], [id number] . tel: [phone] OFFICE/OUTPA TIENT VISIT [facility], [address] [place] [address], [address], [place] tel:[phone] [facility] Lumbago with sciatica, left sideBilateral sacroiliitis 9 Aliza Palmer. [address] [place], [place], [id number] . tel: [phone] OFFICE/OUTPA TIENT VISIT [facility], [address], [place], [address], [place] tel:[phone] [facility] Other dislocation of left ulnohumeral joint, subsequent encounter 0 9 Alyssa Smyth. [address] [place], [place], [id number] . tel: [phone] OFFICE/OUTPA TIENT VISIT [facility], [address] [place] [address], [address], [place] tel:[phone] [facility] Other dislocation of left ulnohumeral joint, initial encounter 9 Alyssa Smyth. [address] [place] [address], [id number] . tel: [phone] OFFICE/OUTPA TIENT VISIT [facility], [address] [place] [address], [address], [place] [phone] [facility] Bilateral sacroiliitisLow back painCervicalgia Other specified dorsopathies, cervical region 6 Nico Sanches. [address] [place] [address] [address], [place], [place], [id number] . tel: [phone] OFFICE/OUTPA TIENT VISIT [facility], [address] [place] [address], [place], [address], [place] tel:[phone] [facility] Bilateral sacroiliitisSpi nal enthesopathy of cervical regionCervicalg ia 6 Aliza Palmer. [address] [place] [address], [id number] . tel: [phone] OFFICE/OUTPA TIENT VISIT [facility], [address] [place] [address], [address], [place] tel:[phone] [facility] Spinal enthesopathy of cervical regionOther specified dorsopathies, cervical regionCervicalg ia Sep-2 1- 6 Aliza [place]. [address], [place], [place], [id number] . tel: [phone] OFFICE/OUTPA TIENT VISIT EST [facility], [address], [place], [address], [phone] [facility] Bilateral sacroiliitisLum bago with sciatica, left side Hany-2 0-201 6 Nico Sanches. [address] [facility] [address], [place], [place], [id number] . tel: [phone] Family History Family Member Type Diagnosis Age At Onset Mother Problem (finding) Alive and well Payers Payer name Insurance type Covered alliance party ID Authoriza tion(s) [facility] Choice/Choice Plus E2 [id number] Social History Type Description Quantity Date Captured Comments Alcohol Use Details Unknown Caffeine Use Details Unknown Tobacco Use Status No Information Smoking Status No Information Sex Female Chief Complaint And Reason For Visit No Information Reason For Referral Reason For Referral No Information Plan Of Treatment Date Type Action Status Referral Ordered: MRI ANY JT UXTR C-MATRL LT elbow ordered Referral Ordered: RADEX ELBW 2 VIEWS LT ordered Referral Ordered: DESTROY LUMB/SAC FACET JNT Bilateral Appointment date/timeframe: 04/18/2016 ordered History Of Present Illness Encounter Date Complaint History Of Prese nt Illness No Information Functional Status Date Functional Assessmen t No Information Instructions Date Instruction Additional Infor mation No Information Assessments Type Assessment Date assessment Other dislocation of left ulnohumeral joint, subsequent encounter Patient Care Teams Name Effective Dates (start - stop) Status Members No Information
--- OUTSIDE RECORDS SUMMARY | 2024-09-11 13:34 | XMS_ITS | Referral Summary ---
Author Organization [facility] Address [address] [place] [address] Care Team Providers Care Pants Maker Name Role Phone Yang Fagan MD Primary Care Provider + Joby Ruth MD Unavailable [phone] aYng Fagan MD Unavailable [phone] Encounters Date Type Department Care Team Description 09/09/2024 11:20 AM CDT Lab [facility] [address] [place] [address] Arrived 09/06/2024 4:59 PM CDT - 09/06/2024 11:59 PM CDT Hospital Encounter [facility] [address] [place] [address] Cervicalgia Discharge Disposition: Discharge to home or self care 09/03/2024 [facility] Post Discharge Follow up phone call [address] [address] Rosina Dodge 09/02/2024 Telephone [facility] Medical Group Cardiology [address] [facility] [address] [place] [address] [place] [address] Fabio Hung MD F/U bayron 09/02/2024 10:05 AM CDT - 09/02/2024 11:35 AM CDT Surgery [facility] Cardiac Catheterization Lab [address] [place] [address] Fabio Hung MD LEFT HEART CATHETERIZATION WITH CORONARY ANGIOGRAPHY AND WITH OR WITHOUT LEFT VENTRICULOGRAM [id number] 09/01/2024 6:28 PM CDT - 09/02/2024 4:00 PM CDT Emergency [address] [address] Juli Castaneda MD [place], MD Estevan Hernandez Ricardo, MD Rao, Magda Schmidt MD Chest pain, unspecified type (Primary Dx); MORALES (dyspnea on exertion); Chest pain in adult; Angina pectoris, unstable (HCC); Type 1 diabetes mellitus with hyperglycemia (HCC) Discharge Disposition: Discharge to home or self care 08/18/2024 9:05 AM CDT Lab [facility] [address] [place] [address] 08/11/2024 4:45 PM CDT Office Visit [facility] Medical Group Convenient Care at [address] [phone] Sandy Fry NP Acute non-recurrent maxillary sinusitis (Primary Dx) 08/07/2024 Results Follow-Up [facility] at [address] [phone] Lizz Gaston NP 08/04/2024 12:54 PM [address]IVER [address] - 08/04/2024 11:59 PM [address] Hospital Encounter [address] [address] Nasopharyngitis Discharge Disposition: Discharge to home or self care 08/04/2024 12:15 PM [address] Office Visit [facility] at [address] [phone] Deanna Licea PA Nasopharyngitis (Primary Dx) 08/02/2024 8:00 AM [address] Office Visit [facility] [address] [facility] 2nd Floor [address] [place] [address] Yunior Pacheco MD S/P right rotator cuff repair (Primary Dx) 06/14/2024 10:30 AM [address]IVER [address] Office Visit [facility] Medical Group Diabetes Endocrine Care at [address] [place] [phone] Rosanna Julien NP Type 1 diabetes mellitus with hyperglycemia (HCC) (Primary Dx); Hypertension associated with type 1 diabetes mellitus (HCC); BMI 23.0-23.9, adult; Medtronic 780 G Insulin pump in place from Last 3 Months Allergies Active Allergy Reactions Criticality Noted Date [...] daily dose 50 units. 50 mL 4 05/18/20 24 Active blood-glucose sensor device Used to monitor blood glucose continuously. 2 each 11 05/25/20 24 Active mirtazapine (REMERON TEODORO-TAB) 30 mg disintegrating tablet Take 1 tablet (30 mg total) by mouth nightly 06/22/19 25 Active traMADoL (ULTRAM) 50 mg tablet Take 1 tablet (50 mg total) by mouth every 8 (eight) hours as needed for pain 07/06/19 25 Active aspirin 81 mg enteric coated tablet Take 1 tablet (81 mg total) by mouth daily 30 tablet 09/04/19 25 025 Active metoprolol tartrate (LOPRESSOR) 25 mg immediate release tablet Take 0.5 tablets (12.5 mg total) by mouth 2 (two) times a day 30 tablet 09/03/19 25 025 Active acetaminophen ER (TYLENOL) 650 mg 8 [...] 02/06/2024 Assessment & Plan (06/14/2024 10:47 AM 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 Personally reviewed most recent A1c - Lab Results Component Value Date HGBA1C 10.3 07/22/2023 Personally reviewed POC blood sugar- not at goal 80-180 Lab Results Component Value Date POCGLU 205 07/22/2023 Medication- continue Tresiba 20 units daily (receives from [employer] patient assisitance program), Humalog 1 units for every 8 carbs with 1:50 correction for blood sugars greater than 150. 0-150=0uts, 151-199=1uts, 200-249=2uts, 250- 299=3uts, 300-349=4uts, 350- 399=5uts, 400-449=6uts, 450-499 =7uts, >500= take 8 units (reports was getting humalog from patient assistance and has 6 vials left.) Monitor blood sugar continuously with PrePaystyle oneyda 3 sensor. - 3 office samples [...] 06/17/2017 Assessment & Plan (06/14/2024 10:45 AM DUMP TRUCK DRIVER OFF HIGHW[address]): This is a chronic condition which continues [...] sessions. Assessment & Plan (07/22/2023 12:46 PM DUMP TRUCK DRIVER OFF HIGHWAY): 10 lb weight gain since last office visit 01/22 Encouraged healthy eating and exercise Assessment & Plan (06/17/2017 6:29 AM DUMP TRUCK DRIVER OFF HIGHW[address]): Weight has been stable for patient. She is aware of importance of healthy proper caloric intake. Seizure-like activity 06/16/2017 Assessment & Plan (06/17/2017 6:28 AM DUMP TRUCK DRIVER OFF HIGHWAY): Plan to obtain MRI of brain along with EEG. Discussed referring to neurology. Anxiety 06/16/2017 Assessment & Plan (06/17/2017 6:29 AM DUMP TRUCK DRIVER OFF HIGHWAY): Has improved with Pristiq. Will continue. Other fatigue 06/16/2017 Assessment & Plan (06/17/2017 6:28 AM DUMP TRUCK DRIVER OFF HIGHWAY): Plan to check CBC, TSH and Vitamin B12. Type 1 diabetes mellitus 02/11/2013 Overview (09/04/2016): Diabetes mellitus type 1 Assessment & Plan (06/17/2017 6:26 AM DUMP TRUCK DRIVER OFF HIGHWAY): Diabetes is improving with treatment. Discussed ways to avoid symptomatic hypoglycemia. Discussed sick day management. Discussed foot care. Reminded to get yearly retinal exam. Has upcoming appt with resident care director. Diabetes will be reassessed in 1 month. Depression 02/11/2013 Overview (09/04/2016): Depression Migraine 02/11/2013 Overview (09/04/2016): Migraines Resolved Problems Problem Noted Date Diagnosed Date Resolved Date Acute sinusitis 12/26/2017 12/26/2017 Migraine 12/26/2017 12/26/2017 Raised TSH level 12/26/2017 12/26/2017 Urinary tract infectious disease 12/26/2017 12/26/2017 Skin sensation disturbance 04/20/2014 0 12/26/2017 Overview (09/07/2016): Skin sensation disturbance Immunizations Immunization Administration Dates Next Due HPV, Quadrivalent 11/17/2008,07/07/2008,05/05/20 08 Influenza, Quadrivalent, Spl it, Intramuscular 03/02/2016,03/28/2015 Influenza, Quadrivalent, Spl it, Preservative Free, Intramuscular 04/30/2023,02/18/2022,02/27/2021 Influenza, Split 06/02/2010 Influenza, Trivalent, IM (MDV) 03/02/2015,2011 Influenza, Unspecified 12/26/2017(Deferred: Othe r) TD Preservative Free 12/31/2010 Tdap 10/31/2010 Social History Tobacco Use Types Packs/Day Years [...] on file Legal Sex Female 9:10 AM DUMP TRUCK DRIVER OFF HIGHW[address] Gender Identity Not on file Sexual Orientation Not on file Last Filed Vital Signs Vital Sign Reading [...] 09/02/2024 12:49 AM CDT Plan of Treatment Not on file Medical Devices Implanted Type Area Home Health Nurse Licensed Practical Device Identifier Shelf Expiration Date Model / Serial / Lot Cardiosonicaire Surgical Instruments K Wire Fix [place] Smooth Sgl End Ss [id number] - [id number] Implanted:Qty: 3 on 11/01/2022 by Joby Ruth MD at [facility] Left: Thumb [employer] [id number] / / [employer] Suture [place] Triple Loaded Knotless Fibertak 2.6mm Ar-3633sp - [id number] Implanted:Qty: 1 on 11/20/2023 by Yunior Pacheco MD at [facility] Orthopedic Lilly [employer] 07/30/2028 AR-363 3SP / / [id number] Description:[employer] Sutu re [place] Triple Loaded Knotless Fibertak 2.6mm AR- 3633SP - [id number] [employer] Swivelock C 4.75mm 19.1mm Closed Eyelet Vent [place] Suture Ar-2324bcc - [id number] Implanted:Qty: 1 on 11/20/2023 by Yunior Pacheco MD at [facility] Orthopedic Lilly Right: Shoulder [employer] 08/31/2027 AR-2324BC C / / [id number] [employer] Corkscrew Suturetape 5.5mm 14.7mm Bioabsorbable Full Thread 1.3mm Ar-1927bct - S0 - [id number] Implanted:Qty: 1 on 02/12/2024 by Yunior Pacheco MD at [facility] Orthopedic Lilly Right: Shoulder [employer] 08/30/2025 AR-1927BC T / 0 / [id number] [employer] Corkscrew Suturetape 5.5mm 14.7mm Bioabsorbable Full Thread 1.3mm Ar-1927bct - S0 - [id number] Implanted:Qty: 1 on 02/12/2024 by Yunior Pacheco MD at [facility] Orthopedic Lilly Right: Shoulder [employer] 09/29/2025 AR-1927BC T / 0 / [id number] [employer] Corkscrew Suturetape 5.5mm 14.7mm Bioabsorbable Full Thread 1.3mm Ar-1927bct - S0 - [id number] Implanted:Qty: 1 on 02/12/2024 by Yunior Pacheco MD at [facility] Orthopedic Lilly Right: Shoulder [employer] 09/29/2025 AR-1927BC T / 0 / [id number] Madrone Malina Angio-Seal Vip 6fr Closere Device [id number] - [id number] Implanted:Qty: 1 on 09/02/2024 by Fabio Hung MD at [facility] 01/25/2025 [id number] / / [id number] Procedures Procedure Name Priority Date/Time Associated [...] SEDATION SAME MD JONES ADDL 15 MIN 19649 09/02/2024 10:11 AM CDT Angina pectoris, unstable [...] CDT THROAT CULTURE Routine 08/04/2024 12:54 PM [address]MP [address] DRIVER [address] Nasopharyngitis POC INFLUENZA A/B, COVID-19 ANTIGEN Routine 08/04/2024 12:41 PM DUMP TRUCK DRIVER [address] Nasopharyngitis POCT RAPID STREP Routine 08/04/2024 12:29 PM DUMP TRUCK DRIVER [address] Nasopharyngitis POCT GLUCOSE Routine 06/14/2024 10:20 AM DUMP TRUCK DRIVER [address] Type 1 diabetes mellitus with hyperglycemia (HCC) [...] - 200 Units/L Comment:Testing performed by : [facility], [id number] [place] [address], [place]., [address] Blood 09/09/2024 11:1 9 AM CDT 09/09/2024 7:52 PM CDT us Haja Wright DIGITAL PHOTOGRAPHIC PRINTER LAB BLOOD ORDERABLES Final Result NOAH COSBY ([place]) 1 [facility] Department [place] [address] * MRI Cervical Spine WO Contrast (09/06/2024 [...] the ventral thecal sac. Thickened ligamentum flavum. Skrb-nl-cwhhpjgc right spinal canal stenosis. Uncovertebral spurring and [...] Mendez Hoffman D.O. AP: AP Report ID: [id number] Reading Location: [id number] Procedure Note Mendez Hoffman, DO - 09/07/2024 [...] the ventral thecal sac. Thickened ligamentum flavum. Chsf-sg-[id number] right spinal canalstenosis. Uncovertebral spurring and facet [...] Mendez Hoffman D.O. AP: AP Report ID: [id number] Reading Location: [id number] us Jerilyn Ortega DIGITAL PHOTOGRAPHIC PRINTER IMG MRI PROCEDURES Final Resu lt * (ABNORMAL) POCT glucose (09/02/2024 11:33 AM CDT) Glucose, POC 237(H) 70 - 199 mg/dL POC Performer [id number] NOAH Blood 09/02/2024 11:3 3 AM CDT 09/02/2024 11:33 AM CDT us Magda Barreto MD LAB POCT ORDERABLES - DEVICE Final Result NOAH [address] [place] [address] * LEFT HEART CATHETERIZATION WITH CORONARY ANGIOGRAPHY AND WITH AND WITHOUT LEFT VENTRICULOGRAM, VASCULAR ACCESS US GUIDANCE (09/02/2024 10:54 AM CDT) Anatomical Region Laterality Modality X-Ray Angiograph y Narrative 09/02/2024 1:24 PM CDT CARDIAC CATHETERIZATION REPORT Ashly Lamas IP ENCOUNTER: [id number] Date of Procedure: 09/02/2024 BIRTHDATE: 1985 JAIL GUARD: Fabio Hung MD REFERRING PHYSICIAN: Dr. Huizar [...] patient. 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 and was draped and prepped in the [...] follow up with me outpatient in clinic us Fabio Hung MD CV CARDIAC CATH PROCEDURES Final Result * (ABNORMAL) POCT glucose (09/02/2024 8:09 AM CDT) Glucose, POC 218(H) 70 - 199 mg/dL POC Performer [id number] [facility] Blood 09/02/2024 8:09 AM CDT 09/02/2024 8:09 AM CDT Magda Barreto MD LAB POCT ORDERABLES - DEVICE Final Result Performing Organization Address [facility] Co de Phone Number NOAH TERRY [address] [place] [address] * eGFR (09/02/2024 4:17 AM CDT) eGFR >90 >=60 mL/min/1. 73 [...] ORDERABLES F inal Result Performing Organization Address City/[facility]/ZIP Co de Phone Number NOAH TERRY [address] Department [place] [address] * (ABNORMAL) Differential, auto (09/02/2024 4:17 AM CDT) Neutrophil abs 4.62 1.50 - 6.50 K/cumm Imm gran abs 0.08 0.00 - 0.10 K/cumm CERNER Lymphocyte abs 5.42(H) 0.80 - 3.30 K/cumm [facility] Monocyte abs 1.09(H) 0.20 - 0.80 K/cumm [facility] Eosinophil abs 0.43 0.00 - 0.50 K/cumm [facility] Basophil abs 0.08 0.00 - 0.10 K/cumm [facility] Neutrophil pct 39.4 % [facility] Comment: Differential consistent with previous result. Interpretive Data Percent cell count reference ranges are not reported, since discordance with absolute values may lead to misinterpretation of CBC data. Current Interpretive Data was last revised on 2017. Imm gran pct 0.7 % [facility] Comment: Interpretive Data Percent cell count reference ranges are not reported, since discordance with absolute values may lead to misinterpretation of CBC data. Current Interpretive Data was last revised on 2017. Lymphocyte pct 46.2 % [facility] Comment: Interpretive Data Percent cell count reference ranges are not reported, since discordance with absolute values may lead to misinterpretation of CBC data. Current Interpretive Data was last revised on 2017. Monocyte pct 9.3 % [facility] Comment: Interpretive Data Percent cell count reference ranges are not reported, since discordance with absolute values may lead to misinterpretation of CBC data. Current Interpretive Data was last revised on 2017. Eosinophil pct 3.7 % [facility] Comment: Interpretive Data Percent cell count reference ranges are not reported, since discordance with absolute values may lead to misinterpretation of CBC data. Current Interpretive Data was last revised on 2017. Basophil pct 0.7 % [facility] Comment: Interpretive Data Percent cell count reference ranges are not reported, since discordance with absolute values may lead to misinterpretation of CBC data. Current Interpretive Data was last revised on 2017. Blood 09/02/2024 4:17 AM CDT 09/02/2024 4:27 AM CDT us Joshua Huizar MD LAB BLOOD ORDERABLES F inal Result NOAH [address] Department [place] [address] * (ABNORMAL) CBC with auto differential (09/02/2024 4:17 AM CDT) Pathologist [facility] WBC 11.72(H) 3.80 - 9.90 K/cumm Hgb 13.8 11.9 - 15.5 g/dL [facility] Hct 41.7 35.6 - 45.5 % [facility] Plt 347 150 - 400 K/cumm [facility] MPV 9.3 9.1 - 12.3 fL [facility] RBC 4.70 3.90 - 5.20 M/cumm [facility] MCV 88.7 81.3 - 96.4 fL [facility] MCH 29.4 27.1 - 33.3 pg [facility] MCHC 33.1 32.3 - 35.7 g/dL [facility] RDW CV 12.8 11.1 - 14.9 % [facility] RDW SD 41.7 35.7 - 48.1 fL [facility] NRBC abs 0.00 0.00 - 0.01 K/cumm [facility] Morphologic Screen Results confirmed by manual morphology review. [facility] Blood 09/02/2024 4:17 AM CDT 09/02/2024 4:27 AM CDT Joshua Huizar MD LAB BLOOD ORDERABLES E dited Result - Final Performing Organization Address City/[facility] Co de Phone Number NOAH [address] [place] [address] * Magnesium (09/02/2024 4:17 AM CDT) Pathologist [facility] Magnesium 1.9 1.4 - 2.5 mg/dL Blood 09/02/2024 4:17 AM CDT 09/02/2024 4:27 AM CDT Joshua Huizar MD LAB BLOOD ORDERABLES F inal Result Performing Organization Address City/[facility] Co de Phone Number [facility] [address] [place] [address] * (ABNORMAL) Creatine kinase (CK), total (09/02/2024 4:17 AM CDT) CK 814(H) 30 - 200 Units/L Blood 09/02/2024 4:17 AM CDT 09/02/2024 4:27 AM CDT Joshua Huizar MD LAB BLOOD ORDERABLES F inal Result Performing Organization Address City/[facility]/ZIP Co de Phone Number [facility] [address] [employer] [place] [address] * Basic metabolic panel (09/02/2024 4:17 AM CDT) Sodium 138 135 - 145 mmol/L Potassium, pl 4.9 3.3 - 4.9 mmol/L [facility] Chloride 102 97 - 110 mmol/L [facility] CO2 25 22 - 32 mmol/L [facility] Anion gap 11 2 - 15 mmol/L [facility] BUN 12 6 - 25 mg/dL [facility] Creatinine 0.79 0.60 - 1.10 mg/dL [facility] Glucose 177 70 - 199 mg/dL [facility] Comment: Interpretive Data Fasting glucose >/= 126 [...] 2022. Calcium 9.5 8.5 - 10.3 mg/dL [facility] Blood 09/02/2024 4:17 AM CDT 09/02/2024 4:27 AM CDT Joshua Huizar MD LAB BLOOD ORDERABLES F inal Result Performing Organization Address City/[facility]/ZIP Co de Phone Number [facility] [address] [employer] [place] [address] * POCT glucose (09/02/2024 4:03 AM CDT) Pathologist [facility] Glucose, POC 166 70 - 199 mg/dL POC Performer [id number] [facility] Blood 09/02/2024 4:03 AM CDT 09/02/2024 4:03 AM CDT Joshua Huizar MD LAB POCT ORDERABLES - DEVICE Final Result Performing Organization Address City/[facility]/ZIP Co de Phone Number [facility] [address] [facility] [place] [address] * POCT hCG, urine (09/01/2024 10:05 PM CDT) Pathologist [facility] HCG, ur, POC Negative Negative Lot Number [id number] QC Backgroud Clear Acceptable QC Control Line Acceptable Urine 09/01/2024 10:0 5 PM CDT Juli Castaneda MD POINT OF CARE TEST ORD ERABLES Final Result * Troponin T high-sensitivity 4-hour (09/01/2024 9:16 PM CDT) Pathologist [facility] Trop T hs <6 <=14 ng/L Comment: Interpretive Data For further hscTnT resources including the diagnostic algorithm and an aid in interpretation, copy and paste this link: https://nrl.testcatalog.org/show/hsTrop Current Interpretive Data last revised 2020. Trop T hs delta 0 ng/L [facility] Trop T hs interp Insignificant [facility] Blood 09/01/2024 9:16 PM CDT 09/01/2024 9:21 PM CDT Cinthia FAIRBANKS LAB BLOOD ORDERABLES Luanne l Result Performing Organization Address City/[facility]/ZIP Co de Phone Number [facility] [address] [facility] [place] [address] * Urinalysis reflex to microscopic and culture Urine (09/01/2024 9:16 PM CDT) Color, ur Straw Yellow Clarity, ur Clear Clear [facility] CH Specific gravity, ur 1.007 1.003 - 1.030 [facility] CH pH, urine 6.5 [facility] Comment: Interpretive Data U rine pH is affected by diet, medications, systemic acid-base disturbances, and renal tubular function. pH may affect urinary stone formation. For example, urine pH below 6.0 may help reduce the tendency for calcium phosphate stones and pH greater than 6.0 may reduce the tendency for uric acid stone formation. Source: [facility] Crossbar Current Interpretive Data was last revised on [...] for microscopic UA and culture not met. [facility] Urine 09/01/2024 9:16 PM CDT 09/01/2024 9:21 PM CDT us Juli Castaneda MD LAB MICROBIOLOGY - GEN ERAL ORDERABLES Final Result [facility] [address] Department [place] [address] * D-dimer, quantitative (09/01/2024 9:16 PM CDT) [...] ORDERABLES F inal Result Performing Organization Address [facility]/ZIP Co de Phone Number [facility] [address] [place] [address] * Lipase (09/01/2024 9:16 PM CDT) Lipase 21 10 - 99 Units/L Blood 09/01/2024 9:16 PM CDT 09/01/2024 9:21 PM CDT Juli Castaneda MD LAB BLOOD ORDERABLES F inal Result Performing Organization Address [facility] Co de Phone Number [facility] [address] [place] [address] * Troponin T high-sensitivity 2-hour (09/01/2024 7:13 PM CDT) Trop T hs 10 <=14 ng/L Comment: Interpretive Data For further hscTnT resources including the diagnostic algorithm and an aid in interpretation, copy and paste this link: https://nrl.testcatalog.org/show/hsTrop Current Interpretive Data last revised 2020. Trop T hs delta 4 ng/L [facility] Trop T hs interp Insignificant NOAH Blood 09/01/2024 7:13 PM CDT 09/01/2024 7:15 PM CDT Cinthia Radha Wessling PA LAB BLOOD ORDERABLES Luanne l Result Performing Organization Address City/[facility]/ZIP Co [place] [address] [place] [address] * (ABNORMAL) Creatine kinase (CK), total (09/01/2024 7:13 PM CDT) CK 1,018(H) 30 - 200 Units/L Blood 09/01/2024 7:13 PM CDT 09/01/2024 8:29 PM CDT us Juli Castaneda MD LAB BLOOD ORDERABLES F inal Result Performing Organization Address [facility] Co de Phone Number NOAH TERRY [address] [place] [address] * XR Chest PA Lateral 2 Views [...] disease. Electronically signed by: Michael Marroquin M.D. us Juli Castaneda MD IMG XR PROCEDURES Luanne [...] us Juli Castaneda MD LAB BLOOD ORDERABLES E dited Result - Final NOAH TERRY [address] Department [place] [address] * eGFR (09/01/2024 5:35 PM CDT) Pathologist [facility] eGFR >90 >=60 mL/min/1. 73 m2 [...] MD LAB BLOOD ORDERABLES F inal Result [facility] [address] Department [place] [address] * (ABNORMAL) Differential, auto (09/01/2024 5:35 PM CDT) Neutrophil abs 3.43 1.50 - 6.50 K/cumm Imm gran abs 0.06 0.00 - 0.10 K/cumm [facility] Lymphocyte abs 4.45(H) 0.80 - 3.30 K/cumm [facility] Monocyte abs 0.84(H) 0.20 - 0.80 K/cumm [facility] Eosinophil abs 0.32 0.00 - 0.50 K/cumm [facility] Basophil abs 0.06 0.00 - 0.10 K/cumm [facility] Neutrophil pct 37.3 % [facility] Comment: Interpretive Data Percent cell count reference ranges are not reported, since discordance with absolute values may lead to misinterpretation of CBC data. Current Interpretive Data was last revised on 2017. Imm gran pct 0.7 % [facility] Comment: Interpretive Data Percent cell count reference ranges are not reported, since discordance with absolute values may lead to misinterpretation of CBC data. Current Interpretive Data was last revised on 2017. Lymphocyte pct 48.6 % [facility] Comment: Interpretive Data Percent cell count reference ranges are not reported, since discordance with absolute values may lead to misinterpretation of CBC data. Current Interpretive Data was last revised on 2017. Monocyte pct 9.2 % [facility] Comment: Interpretive Data Percent cell count reference ranges are not reported, since discordance with absolute values may lead to misinterpretation of CBC data. Current Interpretive Data was last revised on 2017. Eosinophil pct 3.5 % [facility] Comment: Interpretive Data Percent cell count reference ranges are not reported, since discordance with absolute values may lead to misinterpretation of CBC data. Current Interpretive Data was last revised on 2017. Basophil pct 0.7 % [facility] Comment: Interpretive Data Percent cell count reference ranges are not reported, since discordance with absolute values may lead to misinterpretation of CBC data. Current Interpretive Data was last revised on 2017. Blood 09/01/2024 5:35 PM CDT 09/01/2024 5:35 PM CDT us Juli Castaneda MD LAB BLOOD ORDERABLES F inal Result NOAH [address] [employer] [facility] Department [place] [address] * Pro B-type natriuretic peptide (09/01/2024 5:35 [...] as advanced age. - References: 1. Arnoldo KNOWLES et.al. Eur Heart J. 2006:27:330-337. 2. Genevieve RESENDIZ, Taylor MCCULLOUGH. J. AM Narciso Cardiol: Cardiovasc Imag. 2009;2: 216- 225. Interpretive Data Last Revised Date: 2018. Blood 09/01/2024 5:35 PM CDT 09/01/2024 5:35 PM CDT Juli Castaneda MD LAB BLOOD ORDERABLES F inal Result Performing Organization Address City/[facility] Co de Phone Number NOAH TERRY [address] [place] [address] * CBC with auto differential (09/01/2024 5:35 PM CDT) WBC 9.16 3.80 - 9.90 K/cumm Hgb 13.5 11.9 - 15.5 g/dL [facility] Hct 40.5 35.6 - 45.5 % [facility] Plt 338 150 - 400 K/cumm [facility] MPV 9.4 9.1 - 12.3 fL [facility] RBC 4.57 3.90 - 5.20 M/cumm [facility] MCV 88.6 81.3 - 96.4 fL [facility] MCH 29.5 27.1 - 33.3 pg [facility] MCHC 33.3 32.3 - 35.7 g/dL [facility] RDW CV 12.6 11.1 - 14.9 % [facility] RDW SD 40.9 35.7 - 48.1 fL [facility] NRBC abs 0.00 0.00 - 0.01 K/cumm [facility] Morphologic Screen Results confirmed by manual morphology review. [facility] Blood 09/01/2024 5:35 PM CDT 09/01/2024 5:35 PM CDT Juli Castaneda MD LAB BLOOD ORDERABLES E dited Result - Final Performing Organization Address City/[facility]/ZIP Co de Phone Number NOAH TERRY [address] [place] [address] * Comprehensive metabolic panel (09/01/2024 5:35 PM CDT) Sodium 137 135 - 145 mmol/L Potassium, pl 4.3 3.3 - 4.9 mmol/L [facility] Chloride 101 97 - 110 mmol/L [facility] CO2 23 22 - 32 mmol/L [facility] Anion gap 13 2 - 15 mmol/L [facility] BUN 13 6 - 25 mg/dL [facility] Creatinine 0.71 0.60 - 1.10 mg/dL [facility] Glucose 131 70 - 199 mg/dL [facility] Comment: [...] MD LAB BLOOD ORDERABLES F inal Result [facility] [address] [address] Department of Laboratories [place], [place] [id number] * Respiratory pathogen panel Nasopharyngeal (09/01/2024 5:07 PM CDT) Pathologist [facility] Influenza A RNA Not Detected Not Detected CH Influenza B RNA Not Detected Not Detected [facility] RSV RNA Not Detected Not Detected [facility] COVID-19 RNA Not Detected Not Detected [facility] Coronavirus 229E RNA Not Detected Not Detected [facility] Coronavirus HKU1 RNA Not Detected Not Detected CERNER Coronavirus NL63 RNA Not Detected Not Detected [facility] Coronavirus OC43 RNA Not Detected Not Detected [facility] Adenovirus DNA Not Detected Not Detected [facility] Metapneumovirus RNA Not Detected Not Detected [facility] Rhinovirus/Enterov irus RNA Not Detected Not Detected [facility] Parainfluenza 1 RNA Not Detected Not Detected [facility] Parainfluenza 2 RNA Not Detected Not Detected [facility] Parainfluenza 3 RNA Not Detected Not Detected [facility] Parainfluenza 4 RNA Not Detected Not Detected [facility] B. pertussis DNA Not Detected Not Detected [facility] B. parapertussis DNA Not Detected Not Detected [facility] C. pneumoniae DNA Not Detected Not Detected [facility] M. pneumoniae DNA Not Detected Not Detected [facility] Comment: Interpretive Data The Octapoly FilmArray Respiratory Panel (RP2.1) assay is a [...] assay has FDA clearance for testing of DIGITAL PHOTOGRAPHIC PRINTER swabs. The performance characteristics of this assay have been determined by [facility]. Current interpretive data was last revised on 2020. Nasopharyngeal 09/01/2024 5 :07 PM CDT 09/01/2024 5:15 PM CDT Narrative [facility] - 09/01/2024 7:00 PM CDT Is the Patient experiencing symptoms consistent with COVID?->Yes Surveillance testing for transplant patient?->No Juli Castaneda MD LAB MICROBIOLOGY - GEN ERAL ORDERABLES Final Result Performing Organization Address City/[facility] Co de Phone Number [facility] [address] [address] [place] [address] * ECG 12 lead (09/01/2024 5:03 PM CDT) 09/01/2024 5:03 PM CDT Narrative [facility] - 09/01/2024 9:20 PM CDT Vent Rate: 114 bpm RR Interval: 524 msec AL Interval: 126 msec QRS Duration: 68 msec QT Interval: 308 msec QTC Interval: 376 msec P-R-T [place]: 60 - -14 - 70 degrees IMPRESSION: SINUS TACHYCARDIA NONSPECIFIC ST \T\ T-WAVE ABNORMALITY ABNORMAL RHYTHM ECG INTERPRETATION BASED ON A DEFAULT AGE OF 40 YEARS Electronically Signed By: Dr. Eleonora Chicas [facility] Juli Castaneda MD ECG ORDERABLES Final Result Performing Organization Address City/[facility]/ZIP Co de Phone Number [facility] [place] [facility] * eGFR (08/18/2024 9:10 AM [...] was last reviewed 2021. Testing performed by: [address] [address] Blood 08/18/2024 9:1 0 AM CDT 08/18/2024 12:43 PM CDT us Yang Fagan MD LAB BLOOD ORDERABLES [facility] al Result NOAH COSBY ([place]) 1 [facility] Department [place] [address] * Urinalysis reflex to microscopic and culture Urine, clean voided (08/18/2024 9:10 AM CDT) Color, ur Straw Yellow Comment:Testing performed by : [address] [address] Clarity, ur Clear Clear NOAH GARCIA (NI[place]) Comment:Testing performed by : [address] [address] Specific gravity, ur 1.006 1.003 - 1.030 NOAH COSBY ([place]) Comment:Testing performed by : [address] [address] pH, urine 5.5 NOAH COSBY ([place]) Comment: Interpretive Data U rine pH is affected by diet, medications, systemic acid-base disturbances, and renal tubular function. pH may affect urinary stone formation. For example, urine pH below 6.0 may help reduce the tendency for calcium phosphate stones and pH greater than 6.0 may reduce the tendency for uric acid stone formation. Source: [facility] Crossbar Current Interpretive Data was last revised on 2017 Testing performed by: [facility], [address] [place] [address], [id number] Protein, ur ql Negative Negative [facility] ([place]) Comment:Testing performed by : [facility], [address] [place] [address], [address] Glucose, ur ql Negative Negative [facility] ([place]) Comment:Testing performed by : [address], [address] Ketones, ur Negative Negative [facility] A [facility] (NI[place]) Comment:Testing performed by : [address], [address] Bilirubin, ur Negative Negative [facility] ([place]) Comment:Testing performed by : [address], [address] Blood, ur Negative Negative [facility] ([place]) Comment:Testing performed by : [address], [address] Urobilinogen, ur <2.0 <2.0 mg/dL [facility] ([place]) Comment:Testing performed by : [address], [address] Nitrite, ur Negative Negative [facility] (NILE) Comment:Testing performed by : [address], [address] Leukocyte esterase, ur Negative Negative [facility] ([place]) Comment:Testing performed by : [address], [address] UA reflex comment Reflex conditions for microscopic UA and culture not met. [facility] ([place]) Comment:Testing performed by : [address], [address] Urine, clean voided 08/18/2024 9:10 AM CDT 08/18/2024 9:11 AM CDT us Yang Fagan MD LAB MICROBIOLOGY - GENER AL ORDERABLES Final Result NOAH COSBY ([place]) 1 [facility] [place] [address] * Albumin Creatinine Ratio, Urine (08/18/2024 9:10 AM CDT) Albumin Ur <12.0 mg/L Comment: Interpretive Data No reference range established. Current interpretive data was last revised 2018. Testing performed by: [address], [address] Creatinine Ur 24.7 mg/dL NOAH COSBY ([place]) Comment: Interpretive Data No reference range established. Current interpretive data was last revised 2018. Testing performed by: [address], [address] Albumin Creatinine Ratio, Ur See Comment 1 - 29 NOAH COSBY ([place]) Comment: Unable to calculate Testing performed by: [address], [address] Urine 08/18/2024 9:10 AM CDT 08/18/2024 9:10 AM CDT Yang Fagan MD LAB URINE ORDERABLES Fin al Result Performing Organization Address [facility] Co de Phone Number NOAH COSBY ([place]) 1 [facility] [place] [address] * (ABNORMAL) Cholesterol, LDL, direct (08/18/2024 9:10 [...] last revised on 2018. Testing performed by: [facility], [address] [place] [address]., [address] Blood 08/18/2024 9:10 AM CDT 08/18/2024 9:10 AM CDT Yang Fagan MD LAB BLOOD ORDERABLES Fin al Result Performing Organization Address City/[facility] Co de Phone Number NOAH COSBY ([place]) 1 [facility] [employer] [place] [address] * (ABNORMAL) Hemoglobin A1c (08/18/2024 9:10 AM CDT) Hgb A1C 8.9(H) 4.0 - 5.6 % Comment:Testing performed by : [facility], [address] [place] [address]., [id number] Estimated Average Glucose 209 mg/dL NOAH ALEA ([place]) Comment: The ADA recommends reporting an estimated Average Glucose (eAG) with all Hemoglobin A1c results using the equation derived from a study of 507 normal and diabetic adults. Minority populations were underrepresented and children were not included. (Diabetes Care 31:0696-9464, 2008). The eAG is not equivalent to a fasting glucose. Testing performed by: [facility], [address] [place] [address]., [address] Blood 08/18/2024 9:10 AM CDT 08/18/2024 9:10 AM CDT us Yang Fagan MD LAB BLOOD ORDERABLES Fin al Result Performing Organization Address City/[facility] Co de Phone Number NOAH COSBY ([place]) 1 [facility] [employer] [place] [address] * (ABNORMAL) Lipid panel (08/18/2024 9:10 AM [...] last revised on 2018. Testing performed by: [facility], [address] [place] [address]., [address] Triglycerides 377(H) <=149 mg/dL [facility] ([place]) Comment: Interpretive Data Ages < or [...] last revised on 2018. Testing performed by: [facility], [address] [place] [address]., [address] HDL 52 >=40 mg/dL [facility] ([place]) Comment: Interpretive Data Ages < or [...] last revised on 2018. Testing performed by: [facility], [address] [place] [address]., [address] LDL, calculated 130(H) <=129 mg/dL [facility] ([place]) Comment: Interpretive Data Ages < or [...] NCEP Expert Panel. Circulation 2004;110:227 3. Anastacio M et al. STEPHANY Cardiol. 2020 September 30;5(5):540-548. doi: 10.1001/jamacardio.2020.0013 Current Interpretive Data was last revised on 2024. Testing performed by: [address] [address] Non-HDL Cholesterol 197 mg/dL NOAH WHITMAN) Comment: Interpretive Data Ages < or = [...] last revised on 2018. Testing performed by: [facility], [address] [place] [address]., [address] Chol/HDL ratio 5 ANDREY WHITMAN) Comment:Testing performed by : [address] [address] Blood 08/18/2024 9:10 AM CDT 08/18/2024 9:10 AM CDT us Yang Fagan MD LAB BLOOD ORDERABLES Fin al Result NOAH COSBY ([place]) 1 [facility] Department [place] [address] * Basic metabolic panel (08/18/2024 9:10 AM CDT) Sodium 136 135 - 145 mmol/L Comment:Testing performed by : [facility], [address] [place] [address]., [address] Potassium, pl 4.5 3.3 - 4.9 mmol/L [facility] ([place]) Comment:Testing performed by : [facility], [address] [place] [address]., [address] Chloride 99 97 - 110 mmol/L [facility] ([place]) Comment:Testing performed by : [facility], [address] [place] [address]., [address] CO2 23 22 - 32 mmol/L [facility] ([place]) Comment:Testing performed by : [facility], [address] [place] [address]., [address] Anion gap 14 2 - 15 mmol/L [facility] ([place]) Comment:Testing performed by : [facility], [address] [place] [address]., [address] BUN 11 6 - 25 mg/dL [facility] ([place]) Comment:Testing performed by : [facility], [address] [place] [address]., [address] Creatinine 0.60 0.60 - 1.10 mg/dL [facility] ([place]) Comment:Testing performed by : [address] [address] Glucose 169 70 - 199 mg/dL [facility] (NILE) Comment: Interpretive Data Fasting glucose [...] was last revised 2022. Testing performed by: [address] [address] Calcium 9.4 8.5 - 10.3 mg/dL NOAH [facility] (NILE) Comment:Testing performed by : [facility], [address] [place] [address]., [address] Blood 08/18/2024 9:10 AM CDT 08/18/2024 9:10 AM CDT Yang Fagan MD LAB BLOOD ORDERABLES Fin al Result Performing Organization Address [facility] Co de Phone Number NOAH [facility] ([place]) 1 [facility] [place] [address] * Throat culture Throat (08/04/2024 12:54 PM [address]) Report Final Report: No growth of pathogens. Comment:Testing performed by : [facility], [address] [place] [address], [address] Throat 08/04/2024 12:5 4 PM [address] 08/04/2024 10:23 PM [address] Narrative [facility] 08/07/2024 11:43 AM [address] Testing performed by [facility] Microbiology Laboratory ([phone]). Deanna FAIRBANKS LAB MICROBIOLOGY - GENER AL ORDERABLES Final Result Performing Organization Address [facility] Co de Phone Number [facility] [address] [employer] [place] [address] * POC Influenza A/B, COVID-19 antigen (08/04/2024 12:41 PM [address]) Influenza A Ag, POC Negative Negative [facility] Influenza B Ag, POC Negative Negative [facility] COVID-19 Ag POC Presumptive Negative Presumptive Negative, Invalid [facility] Nasal 08/04/2024 12:4 1 PM [address] Deanna FAIRBANKS POINT OF CARE TEST ORDER ANAHI Final Result [facility] [address] [place] [address], [facility] * POCT rapid strep A (08/04/2024 12:29 PM [address]) Rapid Strep A, POC Negative Negative Swab 08/04/2024 12:2 9 PM [address] Deanna FAIRBANKS POINT OF CARE TEST ORDER ANAHI Final Result * POCT glucose (06/14/2024 10:20 AM [address]) Glucose Blood, POC 216 mg/dL Blood 06/14/2024 10:2 0 AM [address] Result [facility] Rosanna Julien NP POINT OF CARE TEST ORDERABLES F inal Result * Diabetic Eye Exam (11/01/2023) 11/01/2023 Result [facility] Historical Provider HEALTH MAINTENANCE Final Result * TSH (09/05/2023 12:00 AM CDT) Pathologist [facility] Thyroid Stimulating Hormone 2.91 0.30 - 4.20 mcIUnit/mL Blood Venous blood specimen / Unknown 09/05/2023 09/05/2023 1:47 PM CDT Alis Castillo NP LAB BLOOD ORDERABLES Final Result NOAH TERRY [address] [address] [place] [address] * DIABETES FOOT EXAM (10/01/2017) Pathologist [facility] Diabetic Foot Exam Unknown Historical Provider HEALTH MAINTENANCE Final Result * PAP SMEAR WITH HPV (12/31/2016) Pathologist [facility] Pap smear Normal Historical Provider HEALTH MAINTENANCE Final Result from Last 3 Months or Most Recently Relevant to Health Maintenance Insurance [employer] [place] [facility] Advance Directives For more information, please contact: [phone] * Full Code (Latest Code Status on File) Date Activated Date Inactivated Comments 09/01/2024 11:50 PM 09/02/2024 8:28 PM * Full Code Date Activated Date Inactivated Comments 11/01/2022 2:31 PM 11/01/2022 7:36 PM Care Teams Pants Maker Relationship Specialty Start Date End Date Yang Fagan MD [address] [place] [address] PCP - General 08/27/19 [place] [address] [place] [address] Surgeon Orthopedic Surgery 11/01/22 Yang Fagan MD [address] [place] [address] Referring Physician Internal Medicine 09/02/24
--- OUTSIDE RECORDS SUMMARY | 2024-09-11 13:34 | XMS_ITS | Encounter Summary ---
Author Organization [facility] Healthcare Address [address] [place] [address] Care Team Providers Care Customs Compliance Manager Name Role Phone Yang Fagan MD Primary Care Provider + Joby Ruth MD Unavailable [phone] Yang Fagan MD Unavailable [phone] Encounter Details Date Type Department Care Team (Late st Contact Info) Description 08/07/2024 Results Follow-Up [facility] [place] [address] [place] [address] Lizz Gaston NP [address] [facility] [address] [place] [address] Social History Tobacco Use Types Packs/Day Years Used Date Smoking Tobacco: Former Cigarettes 0.1 2 2 003 - 2004 Passive Smoke Exposure: Never Smokeless Tobacco: Never Comments:Social smoker Alcohol Use Standard Drinks/Week Comments Yes 0 (1 standard drink = 0.6 oz pur e alcohol) rarely AUDIT-C Answer Date Recorded Q1: How often do you have a drink containing alc ohol? Monthly or less 05/13/2024 Q2: How many drinks containi ng alcohol do you have on a typical day when you are drinking? 1 or 2 05/13/2024 Q3: How often do you have si x or more drinks on one occasion? Never 05/13/2024 PHQ-2 Answer Date Recorded PHQ-2 Score 0 01/20/2019 Personal Safety Answer Date Recorded Have you ever been in or are you currently in a harmful physical or emotional relationship or is someone making you feel afraid or unsafe? 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 Gender Identity Not on file Sexual Orientation Not on file documented as of this encounter Plan of Treatment Not on file documented as of this encounter Visit Diagnoses Not on filedocumented in this encounter Additional Health Concerns Infection Onset Date Last Indicated Resolved Time COVID: Suspected 09/01/2024 09/01/2024 09/01/2024 7:01 PM CDT documented as of this encounter Care Teams Customs Compliance Manager Relationship Specialty Start Date End Date Yang Fagan MD [address] [address] PCP - General 08/27/19 [place] [address] [place] [address] Surgeon Orthopedic Surgery 11/01/22 Yang Fagan MD [address] [place] [address] Referring Physician Internal Medicine 09/02/24 documented as of this encounter
--- OUTSIDE RECORDS SUMMARY | 2024-09-11 13:34 | XMS_ITS | Clinical Summary ---
Author Organization [facility] Address [address] [place] [address] Phone Care Team Providers Care Software Support Analyst Name Role Phone Ambar Amador VACUUM FORMING MACHINE OPERATOR Unavailable Unavailab le Allergies Active Allergy Reactions Criticality Noted Date Comments Codeine Other (see Comments) 09/25/2015 passed out Acetaminophen-Codeine Nausea 05/12/2020 Piperacillin Sod-Tazobactam So Anaphylaxis 05/12/2020 Medications insulin lispro (HUMALOG) 100 UNIT/ML Solution by Subcutaneous route 3 times daily (after meals). Insulin pump Active sertraline (ZOLOFT) 50 MG Tablet Take 50 mg by mouth daily. Active verapamil (CALAN,ISOPTIN) 120 MG Tablet Take 120 mg by mouth daily. Active Norethin-Eth Estrad-Fe Biphas 1 MG-10 MCG / 10 MCG Tablet Take 1 Tab by mouth daily. Active HYDROcodone-kimberlee taminophen (NORCO) 5-325 MG Tablet Take 1 Tab by mouth every 6 hours as needed for Pain. 12 Tab 0 6 Active Additional Information Patient not taking.Reported on 05/29/2021 Topiramate (TOPAMAX PO) Take by mouth. Ac tive Insulin Lispro (HUMALOG SC) by Subcutaneous route. Active ARIPiprazole (ABILIFY) 2 MG Tablet TAKE 1 TABLET BY MOUTH ONCE DAILY IN THE MORNING 1 Active pregabalin (LYRICA) 50 MG Capsule TAKE 1 CAPSULE BY MOUTH IN THE MORNING AND 2 AT BEDTIME NEEDED FOR PAIN 1 Active Desvenlafaxine Succinate (PRISTIQ PO) Take by mouth. Ac tive azithromycin (Zithromax Z-Doug) 250 MG TabletIndicatio ns:Acute sinusitis, recurrence not specified, unspecified location 2 tab(s) daily for 1 day, then 1 tab(s) daily for days 2-5. 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 Gender Identity Not on file Sexual Orientation Not on file Last Filed Vital Signs Vital Sign Reading Time Taken Comments Blood Pressure 100/70 05/29/2021 5:57 PM FORENSIC STRUCTURAL ENGINEER Pulse 76 05/29/2021 5:57 PM FORENSIC STRUCTURAL ENGINEER Temperature 37.1 C (98.7 F) 05/29/2021 5:57 PM FORENSIC STRUCTURAL ENGINEER Respiratory Rate 16 05/29/2021 5:57 PM FORENSIC STRUCTURAL ENGINEER Oxygen Saturation 100% 05/29/2021 5:57 PM FORENSIC STRUCTURAL ENGINEER Inhaled Oxygen Concentration - - Weight 49.9 kg (110 lb) 09/11/2020 8:29 AM CDT Height 152.4 cm (5') 09/25/2015 11:08 AM CDT Body Mass Index 21.48 09/25/2015 11:08 AM CDT Plan of Treatment Health Maintenance Due Date Last Done Comments Hepatitis C Virus (HCV) Screening 1985 Hepatitis B Immunization (1 of 3 - 19+ 3-dose series) 01/12/2003 Influenza Immunization (#1) 02/01/202402/01, 03/02/2016, 03/28/2015, Additional history exists SARS-COV-2 Immunization ( - 2023- season) 2024 07/26/2020, 07/04/2020 Respiratory Syncytial Virus (RSV) Immunization (Adult) (1 - 1-dose 75+ series) 01/12/2059 TdaP Immunization Completed 10/31/2010 DTaP/Tdap/Td Immunization Discontinued 12/31/2010, 06/2010 Meningococcal Immunization (ACWY) Aged Out No longer eligible based on patient's age to complete this topic Pneumococcal Immunization Combined Aged Out No longer eligible based on patient's age to complete this topic Rotavirus Immunization Aged Out No lo nger eligible based on patient's age to complete this topic Insurance Care Teams Software Support Analyst Relationship Specialty Start Date End Date Ambar Amador APN Advanced Practice Nurse 05/12/20
--- OUTSIDE RECORDS SUMMARY | 2024-09-11 13:34 | XMS_ITS ---
Author Organization [facility] Address [address] [place] [address] Phone Care Team Providers Care Staff Auditor Name Role Phone GENE LEMUS, STACEY Jackson Primary Care Provider [phone] STEFANIE LAKE, MARGOT [place] Unavailable [phone] Problems Includes: Active, inactive, and resolved Problems All Visits Onset Date Resolved Date Provider Condition S tatus Gynecologic Services Thermal Endometrial Ablation 02/08/2022 CASS ASHLEY WHNP-BC Active Last Documented On 02/08/2022 8:18AM ; [facility] Note: Nichole/BTL 3-29-21 - - Dr. Triana eth Menorrhagia 10/11/2019 02/08/2022 CASS ASHLEY WHNP-BC Resolved Last Documented On 02/08/2022 8:14AM ; [facility] Note: Unchanged Transient Ischemic Attack (Tia) 01/12/2016 Unknown CASS ASHLEY WHNP-BC Resolved Last Documented On 01/23/2017 9:59AM ; [facility] Note: NO HORMONES!! Bicornuate Uterus Obstetric 09/14/2013 CASS ASHLEY WHNP-BC Active Last Documented On 09/14/2013 8:51AM ; [facility] Note: Stable - surgery to repair done 20 10 Diabetes Mellitus 09/14/2013 CASS PRINCE WHNP-BC Active Last Documented On 09/14/2013 8:50AM ; [facility] Note: Type I Previous Leep 09/14/2013 CASS ASHLEY WHNP-BC Active Last Documented On 4 8:50AM ; [facility] Plan of Treatment Findings Encounter Date Ordered Clinical summary pro vided to patient WELL WOMAN EXAM with CASS ASHLEY NP-BC 07/21/2020 Last Documented On 1 3:39PM ; [facility] Ordered Clinical summary pro vided to patient ENDOMETRIAL BIOPSY with CASS ASHLEY NP-BC 09/07/2019 Last Documented On 0 9:18AM ; [facility] Ordered Clinical summary pro vided to patient KITMAN EXAM with CASS ASHLEY NP-BC 07/15/2019 Last Documented On 0 1:53PM ; [facility] Ordered Clinical summary pro vided to patient KITMAN EXAM with CASS ASHLEY NP-BC 07/09/2018 Last Documented On 9 1:53PM ; [facility] Ordered Clinical summary pro vided to patient PROBLEM VISIT with CASS ASHLEY NP-BC 10/23/2017 Last Documented On 8 1:35PM ; [facility] Ordered Clinical summary pro vided to patient KITMAN EXAM with CASS ASHLEY NP-BC 01/23/2017 Last Documented On 7 10:20AM ; [facility] Ordered Clinical summary pro vided to patient KITMAN EXAM with CASS ASHLEY NP-BC 11/14/2014 Last Documented On 5 3:51PM ; [facility] Ordered Clinical summary pro vided to patient NEW KITMAN EXAM with CASS ASHLEY NP-BC 09/14/2013 Last Documented On 4 9:03AM ; [facility] Pending Tests Order Diagnosis Results Due Ordering P rovider Radiology @ other - *MAMMOGRAPHY SCREENING MAMMOGRAM Encntr screen mammogram for malignant neoplasm of breast 08/27/23 CASS ASHLEY NP-BC Last Documented On 4 8:18AM ; [facility] Referrals To Diagnosis Maternal Medicine UTERINE ANOMALY NEC Last Documented On 0 1:17PM ; [facility] Other UTERINE ANOMALY NEC Last Documented On 0 1:17PM ; [facility] Instructions to patient Instructions for patient : B reast Self Exam discussed Last Documented On 4 9:06AM ; [facility] Safe sex counseling Last Documented On 4 9:07AM ; [facility] Instructions for patient : B reast Self Exam discussed Last Documented On 2 8:14AM ; [facility] Safe sex counseling Last Documented On 2 8:21AM ; [facility] Instructions for patient : B reast Self Exam discussed Last Documented On 1 3:17PM ; [facility] Safe sex counseling Last Documented On 1 3:18PM ; [facility] Instructions for patient ER if bleeding through reg. sized pad/tampon < 1 hour Last Documented On 0 8:59AM ; [facility] Instructions for patient : p atient is to keep a menstrual diary to help with further evaluation and treatment Last Documented On 0 8:59AM ; [facility] Instructions for patient ER if dizzy, vomiting or light-headed due to heavy bleeding Last Documented On 0 8:59AM ; [facility] Instructions for patient : B reast Self Exam discussed Last Documented On 0 1:31PM ; [facility] Instructions for patient : t he patient was instructed in the use and possible side effects of the medication prescribed. She is to maintain good hydration via p.o. fluids. We also discussed possible triggers for UTI and preventive measures Last Documented On 0 1:39PM ; [facility] Instructions for patient : K eep the area around the vulva dry. Allow the area to have exposure to air. Avoid irritants such as fabric softeners and perfumed soaps.~ Last Documented On 0 1:41PM ; [facility] Advised d/c scented bath pro ducts Last Documented On 0 1:41PM ; [facility] Patient to call if fever or back pain Last Documented On 0 1:39PM ; [facility] Instructed to decrease carbo nation and caffeine Last Documented On 0 1:39PM ; [facility] Increase water po Last Documented On 0 1:39PM ; [facility] Instructions For Patient: go od handwashing and perineal care Last Documented On 0 1:39PM ; [facility] Instructions for patient : B reast Self Exam discussed Last Documented On 9 1:32PM ; [facility] Safe sex counseling Last Documented On 9 1:33PM ; [facility] Instructions for patient : K eep the area around the vulva dry. Allow the area to have exposure to air. Avoid irritants such as fabric softeners and perfumed soaps.~ Last Documented On 8 1:27PM ; [facility] Advised d/c scented bath pro ducts Last Documented On 8 1:27PM ; [facility] Instructions for patient : B reast Self Exam discussed Last Documented On 7 9:59AM ; [facility] Safe sex counseling Last Documented On 7 9:59AM ; [facility] Instructions for patient : B reast Self Exam discussed Last Documented On 6 9:58AM ; [facility] Safe sex counseling Last Documented On 6 9:58AM ; [facility] Instructions for patient : B reast Self Exam discussed Last Documented On 5 3:32PM ; [facility] Safe sex counseling Last Documented On 5 3:32PM ; [facility] Instructions for patient : B reast Self Exam discussed Last Documented On 4 8:38AM ; [facility] Return to the clinic if cond ition worsens or new symptoms arise Last Documented On 4 8:52AM ; [facility] ER/ Pain Precautions Last Documented On 4 8:52AM ; [facility] Instructions for patient : B reast Self Exam discussed Last Documented On 0 12:01PM ; [facility] Education and Decision Aids were provided during visit for: Patient Education: Daily hector cium and vitamin D Last Documented On 4 9:06AM ; [facility] Patient Education: weight be aring exercise Last Documented On 4 9:06AM ; [facility] Patient Education: Daily hector cium and vitamin D Last Documented On 2 8:14AM ; [facility] Patient Education: weight be aring exercise Last Documented On 2 8:14AM ; [facility] Patient Education: Daily hector cium and vitamin D Last Documented On 1 3:17PM ; [facility] Patient Education: weight be aring exercise Last Documented On 1 3:17PM ; [facility] INFORMED CONSENT DISCUSSION: Endometrial biopsy was discussed in detail including discomfort, insufficient specimen with need to repeat test, and rare incidence of uterine perforation. Patient expressed understanding of the above and consented to the procedure Last Documented On 0 8:59AM ; [facility] Patient Education: Daily hector cium and vitamin D Last Documented On 0 1:31PM ; [facility] Patient Education: weight be aring exercise Last Documented On 0 1:31PM ; [facility] Patient Education: Daily hector cium and vitamin D Last Documented On 9 1:32PM ; [facility] Patient Education: weight be aring exercise Last Documented On 9 1:32PM ; [facility] Candidiasis Vulvovaginitis I nformation Sheet Given Last Documented On 8 1:34PM ; [facility] Patient Education: Daily hector cium and vitamin D Last Documented On 7 9:59AM ; [facility] Patient Education: weight be aring exercise Last Documented On 7 9:59AM ; [facility] Patient Education: Daily hector cium and vitamin D Last Documented On 6 9:58AM ; [facility] Patient Education: weight be aring exercise Last Documented On 6 9:58AM ; [facility] Patient Education: Daily hector cium and vitamin D Last Documented On 5 3:32PM ; [facility] Patient Education: weight be aring exercise Last Documented On 5 3:32PM ; [facility] Patient Education: Daily hector cium and vitamin D Last Documented On 4 8:38AM ; [facility] Patient Education: weight be aring exercise Last Documented On 4 8:38AM ; [facility] STD screening offered and de clined Last Documented On 0 12:01PM ; [facility] Assessments Includes: Assessments for all patient encounters Findings Encounter Date NORMAL FEMALE EXAM WELL WOMAN - ESTABLISHED PT w ith CASS ASHLEY WHNP-BC 08/13/2023 Last Documented On 4 9:28AM ; [facility] NORMAL FEMALE EXAM WELL WOMAN - ESTABLISHED PT w isiah ASHLEY WHNP-BC 02/08/2022 Last Documented On 2 8:30AM ; [facility] POST OP VISIT POST OP VISIT with MARGOT Juares MD 10/10/2020 Last Documented On 1 4:43PM ; [facility] POST OP VISIT CHECK UP with MARGOT WATTS MD 09/12/2020 Last Documented On 1 5:05PM ; [facility] Menorrhagia PREOP EXAM with MARGOT Ng 08/25/2020 Last Documented On 1 11:10AM ; [facility] NORMAL FEMALE EXAM WELL WOMAN EXAM with CASS ASHLEY NP-BC 07/21/2020 Last Documented On 1 3:39PM ; [facility] Menorrhagia CONSULTATION with MARGOT WATTS MD 06/13/2020 Last Documented On 1 1:06PM ; [facility] Menorrhagia CONSULTATION with MARGOT WATTS MD 10/11/2019 Last Documented On 0 4:38PM ; [facility] Menorrhagia ENDOMETRIAL BIOPSY with CASS ASHLEY NP-BC 09/07/2019 Last Documented On 0 9:18AM ; [facility] Dysuria KITMAN EXAM with CASS ASHLEY NP -BC 07/15/2019 Last Documented On 0 1:53PM ; [facility] NORMAL FEMALE EXAM KITMAN EXAM with CASS ASHLEY Bruno HNP-BC 07/15/2019 Last Documented On 0 1:53PM ; [facility] NORMAL FEMALE EXAM KITMAN EXAM with CASSDIPIKA ASHLEY W HNP-BC 07/09/2018 Last Documented On 9 1:53PM ; [facility] Carlene albicans vulvovaginitis PROBLEM VISIT wi th [place] ASHLEY WHNP-BC 10/23/2017 Last Documented On 8 1:35PM ; [facility] NORMAL FEMALE EXAM KITMAN EXAM with CASS ASHLEY [facility]- 01/23/2017 Last Documented On 7 10:20AM ; [facility] NORMAL FEMALE EXAM KITMAN EXAM with CASS ASHLEY [facility]-BC 01/12/2016 Last Documented On 6 10:21AM ; [facility] NORMAL FEMALE EXAM KITMAN EXAM with CASS ASHLEY [facility] 11/14/2014 Last Documented On 5 3:51PM ; [facility] Female pelvic pain NEW KITMAN EXAM with CASS SUN NS [facility]- 09/14/2013 Last Documented On 4 9:03AM ; [facility] NORMAL FEMALE EXAM NEW KITMAN EXAM with CASS SUN NS [facility]- 09/14/2013 Last Documented On 4 9:03AM ; [facility] Female infertility KITMAN EXAM with SHANNON Ng 10/26/2009 Last Documented On 0 12:11PM ; [facility] Routine pelvic exam KITMAN EXAM with SAHNNON OWENS MD 10/26/2009 Last Documented On 0 12:11PM ; [facility] Instructions Includes: Instructions for all patient encounters Instructions to patient Instructions for patient : B reast Self Exam discussed Last Documented On 4 9:06AM ; [facility] Safe sex counseling Last Documented On 4 9:07AM ; [facility] Instructions for patient : B reast Self Exam discussed Last Documented On 2 8:14AM ; [facility] Safe sex counseling Last Documented On 2 8:21AM ; [facility] Instructions for patient : B reast Self Exam discussed Last Documented On 1 3:17PM ; [facility] Safe sex counseling Last Documented On 1 3:18PM ; [facility] Instructions for patient ER if bleeding through reg. sized pad/tampon < 1 hour Last Documented On 0 8:59AM ; [facility] Instructions for patient : p atient is to keep a menstrual diary to help with further evaluation and treatment Last Documented On 0 8:59AM ; [facility] Instructions for patient ER if dizzy, vomiting or light-headed due to heavy bleeding Last Documented On 0 8:59AM ; [facility] Instructions for patient : B reast Self Exam discussed Last Documented On 0 1:31PM ; [facility] Instructions for patient : t he patient was instructed in the use and possible side effects of the medication prescribed. She is to maintain good hydration via p.o. fluids. We also discussed possible triggers for UTI and preventive measures Last Documented On 0 1:39PM ; [facility] Instructions for patient : K eep the area around the vulva dry. Allow the area to have exposure to air. Avoid irritants such as fabric softeners and perfumed soaps.~ Last Documented On 0 1:41PM ; [facility] Advised d/c scented bath pro ducts Last Documented On 0 1:41PM ; [facility] Patient to call if fever or back pain Last Documented On 0 1:39PM ; [facility] Instructed to decrease carbo nation and caffeine Last Documented On 0 1:39PM ; [facility] Increase water po Last Documented On 0 1:39PM ; [facility] Instructions For Patient: go od handwashing and perineal care Last Documented On 0 1:39PM ; [facility] Instructions for patient : B reast Self Exam discussed Last Documented On 9 1:32PM ; [facility] Safe sex counseling Last Documented On 9 1:33PM ; [facility] Instructions for patient : K eep the area around the vulva dry. Allow the area to have exposure to air. Avoid irritants such as fabric softeners and perfumed soaps.~ Last Documented On 8 1:27PM ; [facility] Advised d/c scented bath pro ducts Last Documented On 8 1:27PM ; [facility] Instructions for patient : B reast Self Exam discussed Last Documented On 7 9:59AM ; [facility] Safe sex counseling Last Documented On 7 9:59AM ; [facility] Instructions for patient : B reast Self Exam discussed Last Documented On 6 9:58AM ; [facility] Safe sex counseling Last Documented On 6 9:58AM ; [facility] Instructions for patient : B reast Self Exam discussed Last Documented On 5 3:32PM ; [facility] Safe sex counseling Last Documented On 5 3:32PM ; [facility] Instructions for patient : B reast Self Exam discussed Last Documented On 4 8:38AM ; [facility] Return to the clinic if cond ition worsens or new symptoms arise Last Documented On 4 8:52AM ; [facility] ER/ Pain Precautions Last Documented On 4 8:52AM ; [facility] Instructions for patient : B reast Self Exam discussed Last Documented On 0 12:01PM ; [facility] Education and Decision Aids were provided during visit for: Patient Education: Daily hector cium and vitamin D Last Documented On 4 9:06AM ; [facility] Patient Education: weight be aring exercise Last Documented On 4 9:06AM ; [facility] Patient Education: Daily hector cium and vitamin D Last Documented On 2 8:14AM ; [facility] Patient Education: weight be aring exercise Last Documented On 2 8:14AM ; [facility] Patient Education: Daily hector cium and vitamin D Last Documented On 1 3:17PM ; [facility] Patient Education: weight be aring exercise Last Documented On 1 3:17PM ; [facility] INFORMED CONSENT DISCUSSION: Endometrial biopsy was discussed in detail including discomfort, insufficient specimen with need to repeat test, and rare incidence of uterine perforation. Patient expressed understanding of the above and consented to the procedure Last Documented On 0 8:59AM ; [facility] Patient Education: Daily hector cium and vitamin D Last Documented On 0 1:31PM ; [facility] Patient Education: weight be aring exercise Last Documented On 0 1:31PM ; [facility] Patient Education: Daily hector cium and vitamin D Last Documented On 9 1:32PM ; [facility] Patient Education: weight be aring exercise Last Documented On 9 1:32PM ; [facility] Candidiasis Vulvovaginitis I nformation Sheet Given Last Documented On 8 1:34PM ; [facility] Patient Education: Daily hector cium and vitamin D Last Documented On 7 9:59AM ; [facility] Patient Education: weight be aring exercise Last Documented On 7 9:59AM ; [facility] Patient Education: Daily hector cium and vitamin D Last Documented On 6 9:58AM ; [facility] Patient Education: weight be aring exercise Last Documented On 6 9:58AM ; [facility] Patient Education: Daily hector cium and vitamin D Last Documented On 5 3:32PM ; [facility] Patient Education: weight be aring exercise Last Documented On 5 3:32PM ; [facility] Patient Education: Daily hector cium and vitamin D Last Documented On 4 8:38AM ; [facility] Patient Education: weight be aring exercise Last Documented On 4 8:38AM ; [facility] STD screening offered and de clined Last Documented On 0 12:01PM ; [facility] Medical Equipment - Implanted Devices Includes: Current and historical Devices No Medical Equipment Recorded Medications Includes: Current and historical Medications Current Medications (continue as prescribed) Valsartan 160 MG Oral Tablet 05/04/2023 Provider: ZAFAR MONTAÑO MD Diagnosis: Last Documented On 08/13/2023 9:16AM By Monika NORMAN ; [facility] Meloxicam 15 MG Oral Tablet 10/10/2020 Provider: Diagnosis: Last Documented On 1 4:19PM By KATE NORMAN ; [facility] Pristiq 100MG Oral Tablet Extended Release 24 Hour 11/2018 Provider: Diagnosis: Last Documented On 07/09/2018 1:43PM By TUSHAR NORMAN ; [facility] HumaLOG Mix 50/50 (50-50) 100 UNIT/ML SC SUSP 04/15/20 14 Provider: Diagnosis: Last Documented On 09/14/2013 8:54AM By TUSHAR SHEARER Yoli ; [facility] Past Medications on file Diflucan 150 MG Oral Tablet 01/10/2023 - 01/11/2023 Pr ovider: Diagnosis: 1 tab po may repeat in 3 days if needed. Last Documented On 01/10/2023 9:45AM By Tri Randle Yoli ; [facility] Amphetamine-Dextroamphetamin e 15 MG Oral Tablet 01/23/2022 - 08/13/2023 Provider: ZAFAR MONTAÑO MD Diagnosis: Last Documented On 08/13/2023 9:16AM By Monika Garrison Yoli ; [facility] Cytotec 200 MCG Oral Tablet 08/25/2020 - 09/12/2020 Provider: MARGOT WATTS MD Diagnosis: Excessive and fr equent menstruation with regular cycle Sig: one po at hs the night before Novasure, then one po upon awakening the day of Novasure. Last Documented On 4:37PM By KATE NORMAN ; [facility] Ibuprofen 200 MG Oral Capsule 08/25/2020 - 09/12/2020 Provider: MARGOT WATTS MD Diagnosis: Excessive and fr equent menstruation with regular cycle Sig: take 4--200 mg tablets at bedtime the night before the procedure, then take 4 more 200 mg tablets upon awakening the morning of the procedure. Last Documented On 4:37PM By KATE NORMAN ; [facility] Lyrica 25 MG Oral Capsule 07/21/2020 - 02/08/2022 Prov ider: Diagnosis: Last Documented On 02/08/2022 8:16AM By Nuvia Whitten ; [facility] Microgestin 06/21 1-20 MG-MCG Oral Tablet 07/21/2020 - 08/25/2020 Provider: CASS TAVERA LABEL FOLDER-BC Diagnosis: One tablet daily Last Documented On 10:12AM By DILIA MANJARREZ LPN ; [facility] Abilify 2 MG Oral Tablet 06/13/2020 - 02/08/2022 Provi iris: Diagnosis: Last Documented On 02/08/2022 8:16AM By Nuvia Whitten ; [facility] Topamax 25 MG Oral Tablet 06/13/2020 - 07/21/2020 Prov ider: Diagnosis: bid Last Documented On 07/21/2020 3:23PM By Nalini Alvarado MA ; [facility] Microgestin 1/20 1-20 MG-MCG Oral Tablet 06/08/2020 - 07/21/2020 Provider: CASS TAVERA LABEL FOLDER-BC Diagnosis: One tablet daily Last Documented On 07/21/2020 3:23PM By Nalini Alvarado MA ; [facility] Microgestin 1/20 1-20 MG-MCG Oral Tablet 05/15/2020 - 06/08/2020 Provider: CASS TAVERA LABEL FOLDER-BC Diagnosis: One tablet daily Last Documented On 1 6:19AM By CASS ASHLEY ALLAN-BC ; [facility] Vitamin D3 1.25 MG (53799 UT) Oral Capsule 10/11/2019 - 06/13/2020 Provider: Diagnosis: Last Documented On 1 11:40AM By KATE NORMAN ; [facility] Microgestin 1/20 1-20 MG-MCG Oral Tablet 07/15/2019 - 05/15/2020 Provider: CASS TAVERA LABEL FOLDER-BC Diagnosis: One tablet daily Last Documented On 0 6:31AM By CASS ASHLEY ALLAN-BC ; [facility] Toujeo Osman SoloStar 300 UNIT /ML Subcutaneous Solution Pen-injector 07/15/2019 - 06/13/2020 Provider: Diagnosis: Last Documented On 1 11:40AM By KATE NORMAN ; [facility] Microgestin 1/20 1-20 MG-MCG Oral Tablet 06/22/2019 - 07/15/2019 Provider: CASS TAVERA LABEL FOLDER-BC Diagnosis: TAKE 1 TABLET BY MOUTH ONCE DAILY Last Documented On 0 1:52PM By CASS AGUILA-BC ; [facility] Microgestin 1/20 1-20MG-MCG Oral Tablet 07/09/2018 - 06/22/2019 Provider: CASS TAVERA LABEL FOLDER-BC Diagnosis: One tablet daily Last Documented On 0 10:33AM By CASS ASHLEY ADAMS ; [facility] Levemir 100UNIT/ML Subcutaneous Solution 07/09/2018 - 07/15/2019 Provider: Diagnosis: Last Documented On 07/15/2019 1:41PM By TUSHAR NORMAN ; [facility] Microgestin 1/20 1-20MG-MCG Oral Tablet 04/30/2018 - 07/09/2018 Provider: CASS TAVERA LABEL FOLDER-BC Diagnosis: One tablet daily Last Documented On 9 1:53PM By CASS ASHLEY ADAMS ; [facility] Microgestin 1/20 1-20MG-MCG Oral Tablet 01/22/2018 - 04/30/2018 Provider: CASS TAVERA NP-BC Diagnosis: One tablet daily Last Documented On 8 12:33PM By CASS ASHLEY ADAMS ; [facility] Terazol 7 0.4% Vaginal Cream 10/24/2017 - 07/09/2018 P rovider: Diagnosis: Last Documented On 07/09/2018 1:42PM By TUSHAR NORMAN ; [facility] Diflucan 150MG Oral Tablet 10/24/2017 - 07/09/2018 Pro vider: Diagnosis: Last Documented On 07/09/2018 1:42PM By TUSHAR NORMAN ; [facility] Loestrin 1/20 (21) 1-20MG-MC G Oral Tablet 07/03/2017 - 01/22/2018 Provider: CASS TAVERA NP-BC Diagnosis: One tablet daily Last Documented On 8 1:52PM By CASS BA ; [facility] Lo Loestrin Fe 1 MG-10 MCG /10 MCG Oral Tablet 05/06/2017 - 07/03/2017 Provider: CASS ASHLEY LABEL FOLDER-BC Diagnosis: One tablet daily Last Documented On 8 1:26PM By CASS ASHLEY ADAMS ; [facility] Diflucan 150MG Oral Tablet 01/29/2017 - 07/09/2018 Pro vider: Diagnosis: Last Documented On 07/09/2018 1:42PM By TUSHAR NORMAN ; [facility] Lo Loestrin Fe 1 MG-10 MCG /10 MCG Oral Tablet 01/23/2017 - 05/06/2017 Provider: CASS TAVERA LABEL FOLDER-BC Diagnosis: One tablet daily Last Documented On 7 1:51PM By CASS BA ; [facility] Sertraline HCl 100MG Oral Tablet 01/23/2017 - 07/09/19 19 Provider: Diagnosis: Last Documented On 07/09/2018 1:43PM By TUSHAR NORMAN ; [facility] [place] 7.5-325MG Oral Tablet 01/23/2017 - 07/15/2019 Pr ovider: Diagnosis: Last Documented On 07/15/2019 1:41PM By TUSHAR NORMAN ; [facility] Gabapentin 100MG Oral Capsule 01/23/2017 - 07/09/2018 Provider: Diagnosis: Last Documented On 07/09/2018 1:42PM By TUSHAR NORMAN ; [facility] Lo Loestrin Fe 1 MG-10 MCG / 10 MCG Tablet 02/16/2016 - 01/23/2017 Provider: CASS TAVERA LABEL FOLDER-BC Diagnosis: One tablet daily Last Documented On 7 10:08AM By TUSHAR NORMAN ; [facility] Verapamil HCl 40 MG Tablet 01/12/2016 - 07/09/2018 Pro vider: Diagnosis: Last Documented On 07/09/2018 1:43PM By TUSHAR NORMAN ; [facility] Wellbutrin SR 100 MG Tablet Extended Release 12 Hour 01/12/2016 - 07/09/2018 Provider: Diagnosis: Last Documented On 07/09/2018 1:43PM By TUSHAR NORMAN ; [facility] Lo Loestrin Fe 1 MG-10 MCG / 10 MCG Tablet 11/30/2015 - 01/11/2016 Provider: CASS TAVERA LABEL FOLDER-BC Diagnosis: One tablet daily Last Documented On 6 7:31AM By CASS BA ; [facility] Lo Loestrin Fe 1 MG-10 MCG / 10 MCG Tablet 11/14/2014 - 02/02/2015 Provider: CASS AGUILA-BC Diagnosis: Contraceptive Ma ngmt NOS One tablet daily - 3 samples given at ov Last Documented On 5 9:39AM By CASS BA ; [facility] LO-LOESTRIN FE 1/10/10 MG/MCG Tablet 09/20/2014 - 12/31 Provider: Diagnosis: 3 samples given Last Documented On 6 10:06AM By CASS BA ; [facility] Lo Loestrin Fe 1 MG-10 MCG / 10 MCG Tablet 08/25/2014 - 09/20/2014 Provider: CASS BA Diagnosis: Contraceptive Ma ngmt NOS One tablet daily Last Documented On 5 12:41PM By TUSHAR NORMAN ; [facility] Diflucan 150 MG OR TABS 09/21/2013 - 11/14/2014 Provid er: Diagnosis: 1 po today repeat in 3 days no refills/kk-phoned out to anya fleming Last Documented On 5 3:38PM By CASS BA ; [facility] Lo Loestrin Fe 1 MG-10 MCG / 10 MCG OR TABS 09/14/2013 - 08/25/2014 Provider: CASS BA Diagnosis: Contraceptive Ma ngmt NOS Last Documented On 5 12:36PM By CASS BA ; [facility] Zoloft 50 MG OR TABS 09/14/2013 - 07/09/2018 Provider: Diagnosis: Last Documented On 07/09/2018 1:43PM By TUSHAR NORMAN ; [facility] Gabapentin 300 MG OR CAPS 09/14/2013 - 01/12/2016 Prov ider: Diagnosis: Last Documented On 6 10:11AM By TUSHAR NORMAN ; [facility] LO-LOESTRIN FE 1/10/10 MG/MCG MT TABS 09/14/2013 - Provider: Diagnosis: Last Documented On 4 12:47PM By CASS BA ; [facility] 19 OR TABS 10/29/2011 - 09/14/2013 Provider: CASS BA Diagnosis: TAKE 1 TABLET BY MOUTH EVERY DAY Last Documented On 09/14/2013 8:50AM By TUSHAR NORMAN ; [facility] metroNIDAZOLE 500 MG OR TABS 03/05/2011 - 09/14/2013 Ml arias: SHANNON OWENS MD Diagnosis: Last Documented On 09/14/2013 8:50AM By TUSHAR NORMAN ; [facility] 19 OR TABS 09/19/2010 - 09/14/2013 Provider: CASS ASHLEY WHNP-BC Diagnosis: Last Documented On 09/14/2013 8:50AM By TUSHAR NORMAN ; [facility] 19 OR TABS 09/19/2010 - 10/29/2011 Provider: CASS ASHLEY WHNP-BC Diagnosis: Last Documented On 2 12:40PM By CASS ASHLEY WHALLAN-BC ; [facility] RE OB + DHA 27-1 & 250 MG OR MISC 10/26/2009 - 011 Provider: SHANNON OWENS MD Diagnosis: I'm trying to give the FREE PNV that contains DHA, please let my office know if this is not it Last Documented On 10/26/2009 12:01PM By SHANNON OWENS MD ; [facility] glyBURIDE 5 MG OR TABS 10/26/2009 - 09/14/2013 Provide r: Diagnosis: Last Documented On 09/14/2013 8:50AM By TUSHAR NORMAN ; [facility] Zoloft 25 MG OR TABS 10/26/2009 - 09/14/2013 Provider: Diagnosis: Last Documented On 09/14/2013 8:50AM By TUSHAR NORMAN ; [facility] Hydrocodone-Acetaminophen 5-500 MG OR TABS 10/26/2009 - 09/14/2013 Provider: Diagnosis: Last Documented On 09/14/2013 8:50AM By TUSHAR NORMAN ; [facility] Alesse OR TABS 10/20/2007 - 10/14/2008 Provider: Diagnosis: Last Documented On 08/08/2009 2:42PM By NUVIA DILL ; [facility] Provera 10 MG OR TABS 04/06/2007 - 04/16/2007 Provider : Diagnosis: Last Documented On 08/08/2009 2:44PM By NUVIA DILL ; [facility] Loestrin 24 Fe 1-20 MG-MCG OR TABS 04/07/2006 - 2006 Provider: Diagnosis: Last Documented On 08/08/2009 2:45PM By NUVIA DILL ; [facility] Medications Administered Includes: Administered Medications in patient's chart No Administered Medications Recorded Results Includes: Results from 09/12/2023 through 09/11/2024 No Results Recorded For Specified Dates History of Present Illness History of Present Illness not supported for this document type No History of Present Illness Recorded Social History Description Last Updated Alcohol use 08/13/2023 Last Documented On 4 9:28AM ; [facility] Not using drugs 08/13/2023 Last Documented On 4 9:28AM ; [facility] Sexually active 08/13/2023 Last Documented On 4 9:28AM ; [facility] Sexually active with 1 partners in the l ast year 08/13/2023 Last Documented On 4 9:28AM ; [facility] Former smoker 07/21/2020 Last Documented On 1 3:39PM ; [facility] Smoking Status Unknown Procedures and Surgical History Surgical History Last Updated History of tubal ligation 08/28/2020 with novasure ablation 08/28/20 [facility] 10/10/2020 Last Documented On 1 4:43PM ; [facility] History of cholecystectomy 07/21/2020 Last Documented On 1 3:39PM ; [facility] History of Loop electrode excision of ce rvix (LEEP) 07/21/2020 Last Documented On 1 3:39PM ; [facility] Previous colposcopy 07/21/2020 Last Documented On 1 3:39PM ; [facility] Surgical / procedural histor y bilateral breast implants ~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 Ruth 08/13/2023 Last Documented On 4 9:28AM ; [facility] History of screening mammogram was perfo rmed 02/13/2022 08/13/2023 Last Documented On 4 9:28AM ; [facility] LMP: 202008/13/2023 Last Documented On 4 9:28AM ; [facility] left elbow surgery and reconstruction Last Documented On 1 3:39PM ; [facility] section 07/21/2020 Last Documented On 1 3:39PM ; [facility] Diabetes 07/21/2020 Last Documented On 1 3:39PM ; [facility] 1 07/21/2020 Last Documented On 1 3:39PM ; [facility] History of cervical dysplasia 07/21/2020 Last Documented On 1 3:39PM ; [facility] History of type 1 diabetes m ellitus last HgA1c was on 06/09/20: 9.3 which is unchanged from before 07/21/2020 Last Documented On 1 3:39PM ; [facility] Para 1 07/21/2020 Last Documented On 1 3:39PM ; [facility] Family History Includes: Family History in patient's chart Description Last Updated Maternal aunt's history of m alignant female breast neoplasm 2 maternal aunts in their 50's ~maternal 1st cousin 10/11/2019 Last Documented On 0 4:38PM ; [facility] Maternal history of pure hypercholestero lemia mother 07/15/2019 Last Documented On 0 1:53PM ; [facility] Paternal grandmother's history of diabet es mellitus paternal women 07/15/2019 Last Documented On 0 1:53PM ; [facility] Paternal history of hypertension father 07/15/2019 Last Documented On 0 1:53PM ; [facility] Family history of heart disease both raf es 09/14/2013 Last Documented On 4 9:03AM ; [facility] Family history of malignant female breast neoplasm 2 maternal aunts ~maternal 1st cousin 09/14/2013 Last Documented On 4 9:03AM ; [facility] Review of Systems Review of Systems not supported for this document type No Review of Systems Recorded Mental Status No Mental Status Recorded Functional Status No Functional Status Recorded Physical Exam Physical Exam not supported for this document type No Physical Exam Recorded Immunizations Includes: Immunizations in patient's chart Vaccine Dose # Date Site Reaction(s) Status Source HPV, (quadrivalent) Gardasil 1 05/05/2008 Complete (Reported) Patient Last Documented On 0 2:41PM ; [facility] HPV, (quadrivalent) Gardasil 2 07/07/2008 Complete (Reported) Patient Last Documented On 0 2:41PM ; [facility] HPV, (quadrivalent) Gardasil 3 11/17/2008 Complete (Reported) Patient Last Documented On 0 2:41PM ; [facility] Allergies Includes: Active, inactive, and resolved Allergies Substance Type Reaction Onset Date Resolved Date Statu s Zosyn Allergy 06/13/2020 Active Last Documented On 08/13/2023 9:17AM ; [facility] Note: throat closes Zithromax Z-Doug Allergy 10/26/2009 [place] Last Documented On 9 1:42PM ; [facility] Tylenol with Codeine #3 Allergy Nausea, Vomiting 1 Active Last Documented On 4 9:17AM ; [facility] Insurance Includes: Active Insurance Policies Plan Name Member ID Group # Subscriber Relationship Effect erika Dates 1 - [facility] [id number] [place] Self Clinical Notes Includes: Signed Clinical Notes starting from 06/21/2022 No Clinical Notes Recorded
--- OUTSIDE RECORDS SUMMARY | 2024-09-11 13:34 | XMS_ITS | Continuity of Care Document ---
Author Organization [facility] Address [address] [place] [address] Phone Care Team Providers Care Warm In Worker Name Role Phone Unavailable Unavailable Unavailable Advance Directives Directive Yes / No Effective Date File Name No Information Encounters Encounter Description Practice Location Reason(s) For Visit Diagnoses Date Provider Providers Copied on Encounter [facility], [address] [place], [place], [id number], tel:[phone] [facility] No Information No Information Referring Provider: AMMY COLE I, [address], [place], [address]. tel:[phone] Family History Family Member Type Diagnosis Age At Onset No Information Payers Payer name Insurance type Covered constitution party ID Authorrikya ten(s) [facility] PPO [id number] Social History Type Description Quantity Date Captured Comments Sex Female Smoking Status No Information Chief Complaint And Reason For Visit No Information History Of Present Illness Encounter Date Complaint History Of Prese nt Illness No Information Instructions Date Instruction Additional Infor mation No Information Assessments Type Assessment Date No Information
--- OUTSIDE RECORDS SUMMARY | 2024-09-11 13:34 | XMS_ITS | Clinical Summary ---
Author Organization [facility] Address [address] [place] [address] Phone Care Team Providers Care Cook Seafood Name Role Phone Yang Fagan MD Primary Care Provider [phone] Allergies Active Allergy Reactions Criticality Noted Date Comments Acetaminophen-Codeine Nausea and Vomiting,Shortness of Breath/Wheezing High 05/12/2020 Adhesive Other (See Comments) High 09/08/2020 Azithromycin Itching Low 09/30/2011 Piperacillin-Tazobactam Swelling Low 09/30/2011 Sulfa (Sulfonamide Antibiotics) Anaphylaxis High 05/12/2020 Tazobactam Rash Low 06/27/2021 Reaction: rash, Medications vit-iron fumarate-FA ( S) 27-0.8 mg Oral Tab Take 1 Tab by mouth daily. Active acetaminophen (TYLENOL) 325 mg Oral tablet Take 650 mg by mouth every 4 hours as needed. Active oxyCODONE-aceta minophen (PERCOCET) 5-325 mg Oral tablet Take 1 Tab by mouth every 4 hours as needed for Pain, Moderate (For Pain Scale 4-6). 30 Tab 0 03/20/2012 Active ibuprofen (MOTRIN) 600 mg Oral tablet Take 1 Tab by mouth every 6 hours as needed for Pain. 40 Tab 0 03/20/2012 Active Active Problems Problem Noted Date Diagnosed Date Degeneration of lumbar or lumbosacral interverte bral disc 06/27/2021 DM type 1 (diabetes mellitus, type 1) 01/18/2012 Resolved Problems Problem Noted Date Diagnosed Date Resolved Date c/s 03/16, type I diabetic, insulin pump 03/16/2012 03/20/2012 Decreased CL, Atul-Silver dwarfism, cont Crinone (consider Procardia if ctx), IDDM on pump, rpt CL friday, [place] PRN, Dopple FHT q shift, Chlamydia - Azithromycin with Benadryl 01/23/2012 03/20/2012 Palpitations/SOB/chest heavi ness, Dwarfism, decreased CL, vaginal progesterone, hold procardia, Type 1 DM on insulin pump 01/18/2012 decreased CL 01/18/2012 03/20/2012 Nausea and vomiting 09/30/2011 03/20/20 12 Immunizations Immunization Administration Dates Next Due (ADACEL/BOOSTRIX)(10 YR UP) TDAP VACCINE, 0.5ML, IM 10/31/2010 Influenza Seasonal Unspecified Formulation IM Family History Medical History Relation Name Comments Hypertension Father Heart Disease Mother Relation Name Status Comments Father Alive Mother Alive Social History Tobacco Use Types Packs/Day Years Used Date Smoking Tobacco: Former Cigarettes Alcohol Use Standard Drinks/Week Comments No 0 (1 standard drink = 0.6 oz pur e alcohol) Comments Unknown Sex and Gender Information Value Date Recorded Sex Assigned at Not on file Legal Sex Female 6:08 AM 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 Gender Identity Not on file Sexual Orientation Not on file Occupation Industry Job Start Date Job End Date Not on file Not on file Not on file Not on file Not on file Not on file Not on file Not on file Last Filed Vital Signs Vital Sign Reading Time Taken Comments Blood Pressure 123/97 07/24/2021 2:04 PM TRACK PRODUCTION ENGINEER Pulse 94 07/24/2021 2:04 PM TRACK PRODUCTION ENGINEER Temperature 37 C (98.6 F) 03/20/2012 7:50 AM CDT Respiratory Rate 18 07/24/2021 2:04 PM TRACK PRODUCTION ENGINEER Oxygen Saturation 100% 07/24/2021 2:04 PM TRACK PRODUCTION ENGINEER Inhaled Oxygen Concentration - - Weight 50.6 kg (111 lb 9.6 oz) 06/27/2021 10:08 AM TRACK PRODUCTION ENGINEER Height 152.4 cm (5') 06/27/2021 10:08 AM TRACK PRODUCTION ENGINEER Body Mass Index 21.8 06/27/2021 10:08 AM TRACK PRODUCTION ENGINEER Plan of Treatment Health Maintenance Due Date Last Done Comments DIABETES ANNUAL RETINAL EXAM 01/12/2002 DIABETES MICROALBUMIN ANNUAL SCREEN 01/12/2002 LDL CHOLESTEROL ANNUAL 01/12/2002 HEPATITIS B VACCINES (1 of 3 - 19+ 3-dose series) 01/12/2003 HPV/Cotest (21-29) 01/12/2005 CERVICAL CANCER SCREENING 01/12/2014 HPV/Cotest (30-65) 01/12/2014 PAP SMEAR 01/12/2014 DTAP/TDAP/TD VACCINES (3 - Td or Tdap) 12/31/2020 12/31/2010, 10/31/2010 DIABETES HBA1C Q 6 MONTHS 11/01/2021 05/03/2021, 09/2020 DIABETES ANNUAL FOOT EXAM 04/06/2022 04/06/2021 INFLUENZA VACCINE (#1) 2024 6, 03/28/2015, 03/02/2015, Additional history exists BREAST CANCER SCREENING 2024 HPV VACCINES Aged Out No longer eligi ble based on patient's age to complete this topic Insurance CHOICE [id number] Advance Directives For more information, please contact: [phone] * Full Code (Latest Code Status on File) Date Activated Date Inactivated Comments 03/16/2012 1:27 PM 03/20/2012 12:54 PM * Full Code Date Activated Date Inactivated Comments 03/16/2012 8:32 AM 03/16/2012 1:27 PM * Full Code Date Activated Date Inactivated Comments 01/23/2012 4:49 PM 01/27/2012 3:22 PM * Full Code Date Activated Date Inactivated Comments 01/18/2012 4:20 PM 01/19/2012 3:12 PM * Full Code Date Activated Date Inactivated Comments 09/30/2011 1:36 PM 09/30/2011 6:20 PM Care Teams Cook Seafood Relationship Specialty Start Date End Date Yang Fagan MD [address] [place] [id number] PCP - General Internal Medicine 07/24/21
--- OUTSIDE RECORDS SUMMARY | 2024-09-11 13:34 | XMS_ITS | Clinical Summary ---
Author Organization [facility] Address [address] [place] [address] Phone Care Team Providers Care Scooter Mechanic Name Role Phone GENE LEMUS, STACEY Jackson Primary Care Provider [phone] STEFANIE LAKE, MARGOT Paniagua Unavailable [phone] Reason for Visit and Chief Complaint * PHONE CALL Problems Includes: Problems addressed during this encounter and other active Problems All Visits Onset Date Resolved Date Provider Condition S tatus Gynecologic Services Thermal Endometrial Ablation 02/08/2022 CASS Yoli GABI WHNP-BC Active Last Documented On 02/08/2022 8:18AM ; [facility] Note: Nichole/BTL 3-29-21 - - Dr. Triana eth Bicornuate Uterus Obstetric 09/14/2013 CASS Yoli GABI WHNP-BC Active Last Documented On 09/14/2013 8:51AM ; [facility] Note: Stable - surgery to repair done 20 10 Diabetes Mellitus 09/14/2013 CASS PRINCE WHNP-BC Active Last Documented On 09/14/2013 8:50AM ; [facility] Note: Type I Previous Leep 09/14/2013 CASS Yoli GABI WHNP-BC Active Last Documented On 4 8:50AM ; [facility] Plan of Treatment Pending Tests Order Diagnosis Results Due Ordering P rovider Radiology @ other - *MAMMOGRAPHY SCREENING MAMMOGRAM Encntr screen mammogram for malignant neoplasm of breast 08/27/23 CASS Yoli GABI WHNP-BC Last Documented On 4 8:18AM ; [facility] Assessments Includes: Assessments from this encounter No Assessments Recorded Medical Equipment - Implanted Devices Includes: Current Devices No Medical Equipment Recorded Medications Includes: Medications discussed during this encounter and other current Medications Current Medications (continue as prescribed) Valsartan 160 MG Oral Tablet 05/04/2023 Provider: ZAFAR MONTAÑO MD Diagnosis: Last Documented On 08/13/2023 9:16AM By Monika Garrison Yoli ; [facility] Meloxicam 15 MG Oral Tablet 10/10/2020 Provider: Diagnosis: Last Documented On 4:19PM By KATE NORMAN ; [facility] Pristiq 100MG Oral Tablet Extended Release 24 Hour 11/2018 Provider: Diagnosis: Last Documented On 07/09/2018 1:43PM By TUSHAR NORMAN ; [facility] HumaLOG Mix 50/50 (50-50) 100 UNIT/ML SC SUSP 09/15/19 14 Provider: Diagnosis: Last Documented On 09/14/2013 8:54AM By TUSHAR NORMAN ; [facility] Past Medications on file Diflucan 150 MG Oral Tablet 01/10/2023 - 01/11/2023 Pr ovider: Diagnosis: 1 tab po may repeat in 3 days if needed. Last Documented On 01/10/2023 9:45AM By Tri NORMAN ; [facility] RE OB + DHA 27-1 & 250 MG OR MISC 10/26/2009 - 011 Provider: SHANNON OWENS MD Diagnosis: I'm trying to give the FREE PNV that contains DHA, please let my office know if this is not it Last Documented On 10/26/2009 12:01PM By SHANNON OWENS MD ; [facility] Alesse OR TABS 10/20/2007 - 10/14/2008 Provider: Diagnosis: Last Documented On 08/08/2009 2:42PM By BLUE DILL ; [facility] Provera 10 MG OR TABS 04/06/2007 - 04/16/2007 Provider : Diagnosis: Last Documented On 08/08/2009 2:44PM By BLUE DILL ; [facility] Loestrin 24 Fe 1-20 MG-MCG OR TABS 04/07/2006 - 2006 Provider: Diagnosis: Last Documented On 08/08/2009 2:45PM By BLUE DILL ; [facility] Medications Administered Includes: Administered Medications from this encounter No Administered Medications Recorded Results Includes: Results discussed during this encounter No Results Recorded For Specified Dates History of Present Illness Includes: History of Present Illness from this encounter No History of Present Illness Recorded Social History Description Last Updated Alcohol use very rare 08/13/2023 Last Documented On 3 9:40AM ; [facility] Not using drugs 08/13/2023 Last Documented On 3 9:40AM ; [facility] Sexually active 08/13/2023 Last Documented On 3 9:40AM ; [facility] Sexually active with 1 partners in the l ast year 08/13/2023 Last Documented On 3 9:40AM ; [facility] Exercising regularly 07/21/2020 Last Documented On 3 9:40AM ; [facility] Former smoker 07/21/2020 Last Documented On 3 9:40AM ; [facility] Marital history Single 07/21/2020 Last Documented On 3 9:40AM ; [facility] Smoking status : Never smoker 07/21/2020 Last Documented On 3 9:40AM ; [facility] Social history changed 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[place] 07/21/2020 Last Documented On 3 9:40AM ; [facility] control is being practiced ocps Last Documented On 3 9:40AM ; [facility] Procedures and Surgical History Surgical History Last Updated History of tubal ligation 08/28/2020 with novasure ablation 08/28/20 [facility] 10/10/2020 Last Documented On 3 9:40AM ; [facility] History of cholecystectomy 07/21/2020 Last Documented On 3 9:40AM ; [facility] History of Loop electrode excision of ce rvix (LEEP) 07/21/2020 Last Documented On 3 9:40AM ; [facility] Previous colposcopy 07/21/2020 Last Documented On 3 9:40AM ; [facility] Surgical / procedural histor y bilateral breast implants ~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 ~c/s at [facility] 36 wks 2012 ~12-20 left elbow reconstruction 07/21/2020 Last Documented On 3 9:40AM ; [facility] Medical History Includes: Medical History addressed during this encounter Description Last Updated LMP: 08/17/2020 08/13/2023 Last Documented On 3 9:40AM ; [facility] Contraception: Tubal 08/28/20 with novasu re ablation 10/10/2020 Last Documented On 3 9:40AM ; [facility] Last pap smear date 07/21/2020 09/12/2020 Last Documented On 3 9:40AM ; [facility] left elbow surgery and reconstruction Last Documented On 3 9:40AM ; [facility] section 07/21/2020 Last Documented On 3 9:40AM ; [facility] Diabetes 07/21/2020 Last Documented On 3 9:40AM ; [facility] 1 07/21/2020 Last Documented On 3 9:40AM ; [facility] History of cervical dysplasia 07/21/2020 Last Documented On 3 9:40AM ; [facility] History of Pap smear done 07/15/201907/03 Last Documented On 3 9:40AM ; [facility] History of type 1 diabetes m ellitus last HgA1c was on 06/09/20: 9.3 which is unchanged from before 07/21/2020 Last Documented On 3 9:40AM ; [facility] Para 1 07/21/2020 Last Documented On 3 9:40AM ; [facility] Result: normal 07/21/2020 Last Documented On 3 9:40AM ; [facility] Family History Includes: Family History addressed during this encounter Description Last Updated Maternal aunt's history of m alignant female breast neoplasm 2 maternal aunts in their 50's ~maternal 1st cousin 10/11/2019 Last Documented On 3 9:40AM ; [facility] Family history unchanged 07/15/2019 Last Documented On 3 9:40AM ; [facility] Maternal history of pure hypercholestero lemia mother 07/15/2019 Last Documented On 3 9:40AM ; [facility] Paternal grandmother's history of diabet es mellitus paternal women 07/15/2019 Last Documented On 3 9:40AM ; [facility] Paternal history of hypertension father 07/15/2019 Last Documented On 3 9:40AM ; [facility] Family history of diabetes mellitus ramirez rnal women 09/14/2013 Last Documented On 3 9:40AM ; [facility] Family history of heart disease both raf es 09/14/2013 Last Documented On 3 9:40AM ; [facility] Family history of hypercholesterolemia m other 09/14/2013 Last Documented On 3 9:40AM ; [facility] Family history of hypertension father Last Documented On 3 9:40AM ; [facility] Family history of malignant female breast neoplasm 2 maternal aunts ~maternal 1st cousin 09/14/2013 Last Documented On 3 9:40AM ; [facility] Family history of Cancer 08/08/2009 Last Documented On 3 9:40AM ; [facility] Family history of Diabetes 08/08/2009 Last Documented On 3 9:40AM ; [facility] Family medical history of high blood pre ssure 08/08/2009 Last Documented On 3 9:40AM ; [facility] Family medical history of High Cholester ol 08/08/2009 Last Documented On 3 9:40AM ; [facility] Review of Systems Includes: Review of Systems [...] Active Last Documented On 08/13/2023 9:17AM ; [facility] Note: throat closes Zithromax Z-Doug Allergy 10/26/2009 [place] ctive Last Documented On 9 1:42PM ; [facility] Tylenol with Codeine #3 Allergy Nausea, Vomiting 1 Active Last Documented On 4 9:17AM ; [facility] Encounters Encounter Provider Location Date Check-In Time Check-Out Time Diagnosis * PHONE CALL CASS Yoli BA 01/10/2023 9:40AM 11:59PM Insurance Includes: Active Insurance Policies Plan Name Member ID Group # Subscriber Relationship Effect erika Dates 1 - [facility] [id number] [place] Self Clinical Notes Includes: Clinical Notes from this encounter * Progress note Date Encounter Last Documented by 01/10/2023 * PHONE CALL Last documented on 01/10/2023; 9:44 AM, CASS BA; [facility] Active Problems & Conditions - Bicornuate Uterus Obstetric - surgery to repair done 2009 - Diabetes Mellitus - Type I - Gynecologic Services Thermal Endometrial Ablation - Nichole/BTL 08-28-20 - - Dr. Cortes - Previous Leep Chief Complaint Phone Call - Chief Concern: Reason for call: Pt called with sx of a yeast infection including vaginal itching, burning, and irritation x 1 week. Pt denies any new sexual partners, UTI sx, pelvic pain, fever, or blisters/sores in vagina. Pt has tried otc remedies with no improvement. I called in Diflucan per protocol to pt's pharmacy (verified one in chart). Pt to call if sx persist or worsen. pt phone # for return call: [phone] Date/Initials: 01/10/23 CLL. Current Medication - Amphetamine-Dextroamphetamine 15 MG Oral Tablet 30 days, 0 refills - HumaLOG Mix 50/50 (50-50) 100 UNIT/ML Suspension 0 days, 0 refills - Meloxicam 15 MG Oral Tablet 0 days, 0 refills - Pristiq 100MG Oral Tablet Extended Release 24 Hour 100 MG 0 days, 0 refills Past Medical/Surgical History Reported: LMP: 08/17/2020, Last pap smear date 07/21/2020 result: normal, and Contraception: Tubal 08/28/20 with novasure ablation. Medical: Diabetes. Surgical / Procedural: Surgical / procedural history bilateral breast implants pt had a surg to fix her bicornuate uterus 2010 c/s at [facility] 36 wks 2012 12-20 left elbow reconstruction. Previous colposcopy. : 1, para 1, and history of the : section. Diagnoses: Cervical dysplasia. Type 1 diabetes mellitus last HgA1c was on 06/09/20: 9.3 which is unchanged from before Left elbow surgery and reconstruction. 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 Tobacco use: Former smoker. Smoking status: Never smoker. Alcohol: Alcohol use very rare. Drug Use: Not using drugs. Habits: Exercising regularly. Marital: Marital history Single. Sexual: Sexually active with 1 partners in the last year and control is being practiced ocps. Allergies - Tylenol with Codeine #3 Reaction: Nausea, Vomiting - Zosyn Family History Heart disease both sides Family history unchanged Family medical history of high blood pressure Family medical history of High Cholesterol Cancer Diabetes Systemic hypertension father Pure hypercholesterolemia mother Diabetes mellitus paternal women Malignant female breast neoplasm 2 maternal aunts maternal 1st cousin Paternal: Systemic hypertension father Maternal: Pure hypercholesterolemia mother Paternal grandmother's: Diabetes mellitus paternal women Maternal aunt's: Malignant female breast neoplasm 2 maternal aunts in their 50's maternal 1st cousin
--- OUTSIDE RECORDS SUMMARY | 2024-09-11 13:34 | XMS_ITS | Clinical Summary ---
Author Organization [facility] Address [address] [place] [address] Phone Care Team Providers Care Technology Adoption Manager Name Role Phone GENE LEMUS, STACEY Jackson Primary Care Provider [phone] STEFANIE LAKE, MARGOT Paniagua Unavailable [phone] Reason for Visit and Chief Complaint NO SHOW Problems Includes: Problems addressed during this encounter and other active Problems All Visits Onset Date Resolved Date Provider Condition S tatus Gynecologic Services Thermal Endometrial Ablation 02/08/2022 CASS Yoli GABI WHNP-BC Active Last Documented On 02/08/2022 8:18AM ; [facility] Note: Nichole/BTL 3-29-21 - - Dr. Triana eth Bicornuate Uterus Obstetric 09/14/2013 CASS Yoli GABI WHNP-BC Active Last Documented On 09/14/2013 8:51AM ; [facility] Note: Stable - surgery to repair done 20 10 Diabetes Mellitus 09/14/2013 CASS PRINCE WHNP-BC Active Last Documented On 09/14/2013 8:50AM ; [facility] Note: Type I Previous Leep 09/14/2013 CASS Yoli GABI WHNP-BC Active Last Documented On 4 8:50AM ; [facility] Plan of Treatment Pending Tests Order Diagnosis Results Due Ordering P rovider Radiology @ other - *MAMMOGRAPHY SCREENING MAMMOGRAM Encntr screen mammogram for malignant neoplasm of breast 08/27/23 CASS Yoli GABI WHNP-BC Last Documented On 4 8:18AM ; [facility] Assessments Includes: Assessments from this encounter No Assessments Recorded Medical Equipment - Implanted Devices Includes: Current Devices No Medical Equipment Recorded Medications Includes: Medications discussed during this encounter and other current Medications Current Medications (continue as prescribed) Valsartan 160 MG Oral Tablet 05/04/2023 Provider: ZAFAR MONTAÑO MD Diagnosis: Last Documented On 08/13/2023 9:16AM By Monika Garrison Yoli ; [facility] Meloxicam 15 MG Oral Tablet 10/10/2020 Provider: Diagnosis: Last Documented On 1 4:19PM By KATE NORMAN ; [facility] Pristiq 100MG Oral Tablet Extended Release 24 Hour 11/2018 Provider: Diagnosis: Last Documented On 07/09/2018 1:43PM By TUSHAR NORMAN ; [facility] HumaLOG Mix 50/50 (50-50) 100 UNIT/ML SC SUSP 09/15/19 14 Provider: Diagnosis: Last Documented On 09/14/2013 8:54AM By TUSHAR NORMAN ; [facility] Medications Administered Includes: Administered Medications from this [...] Last Documented On 08/13/2023 9:17AM ; [facility] Note: throat closes Zithromax Z-Doug Allergy 10/26/2009 [place] ctive Last Documented On 9 1:42PM ; [facility] Tylenol with Codeine #3 Allergy Nausea, Vomiting 1 Active Last Documented On 4 9:17AM ; [facility] Encounters Encounter Provider Location Date Check-In Time Check-Out Time Diagnosis NO SHOW CASS ASHLEY [facility] 08/07/2023 2:42PM 11:59PM Insurance Includes: Active Insurance Policies Plan Name Member ID Group # Subscriber Relationship Effect erika Dates 1 - [facility] [id number] [place] Self Clinical Notes Includes: Clinical Notes from this encounter No Clinical Notes Recorded
--- OUTSIDE RECORDS SUMMARY | 2024-09-11 13:34 | XMS_ITS ---
Care Plan - [facility] Created on: September 11, 2024 [address] [address] : 1985 Sex: Female Author Organization [facility] Address [address] [place] [address] Phone Care Team Providers Care Information Technology Associate Name Role Phone GENE LEMUS, STACEY Jackson Primary Care Provider [phone] STEFANIE LAKE, MARGOT Paniagua Unavailable [phone]
--- OUTSIDE RECORDS SUMMARY | 2024-09-11 13:34 | XMS_ITS | Data Portability ---
Author Organization [place] [facility],, [facility]- Address # [address] [place] [address] Assessment Encounter Date Assessment Date Assessment LastModified by Organization Details LastModified Time 04/30/2023 04/30/2023 Information regarding the particular vaccine that patient is receiving today was presented to the parent(s). All questions were answered [email or web address] Not available 04/30/2023 10:26:49 Plan of Treatment Reminders Order Date Submit Date Provider Last Modified By Organization Details Last Modified Time Details Appointments None record ed. Lab None record ed. Referral None record ed. Procedures None record ed. Surgeries None record ed. Imaging None record ed. Medication Orders None record ed. Patient TargetsNo targets recorded. Patient Instructions Encounter Date Encounter Id Patient Instructions Last Modified By Organization Details Last Modified Time 02/18/2022 [id number] influenza (flu) vaccine (inactivated or recombinant): what you need to know [email or web address] Not available 02/18/2022 10:22:53 04/30/2023 [id number] influenza (flu) vaccine (inactivated or recombinant): what you need to know [email or web address] Not available 04/30/2023 10:27:00 Reason for Referral None Reported. Problems No Known Problems Medical Equipment None Reported. Allergies No known drug allergies Medications Not known to be on any medication Vitals None Recorded Social History None recorded. Functional Status None recorded. Mental Status None recorded. Family History Nothing Reported. Medical History No medical history recorded. Gynecological HistoryNo gynecological history recorded. Obstetrics History GPAL:G 0 P 0 0 0 0 Immunizations Vaccine Type Date Status Note Provider Nam e and Address Organization Details Recorded Time Influenza, split virus, quadrivalent, PF 02/27/2021 completed Domitila Ledesma [facility], [place] [facility], 02/27/2021 18:11:56 Influenza, split virus, quadrivalent, PF 02/18/2022 completed Alicia Terry null, [place] [facility], 02/18/2022 12:06:36 Influenza, split virus, quadrivalent, PF 04/30/2023 completed Nelli Prestonramon null, [place] [facility], 04/30/2023 10:47:16 Past Encounters Encounter ID Performer Location Encounter Start Date Encounter Closed Date Diagnosis/Indication Diagnosis SNOMED-CT Code Diagnosis ICD10 Code Diagnosis Note [id number] [facility] [address] [place] [address],[address] [place] [address] 02/27/2021 17:30:58 02/28/2021 15:33:33 Active or passive immunization [id number] [id number] Alicia Terry [facility] [address] [place] [address],[address] [place] [address] 02/18/2022 10:17:19 02/19/2022 15:53:55 Active or passive immunization [id number] Z23 [id number] Sofia Carvalho [facility] [address] [place] [address],[facility] [address] [place] [address] 04/30/2023 10:23:34 05/03/2023 16:43:32 Active or passive immunization [id number] Z23 Informatio n regarding the particular vaccine that patient is receiving today was presented to the parent(s). All questions were answered Health Concerns Section Related Observation LastModified by Organization Detai ls LastModified Time None Recorded Concern Status LastModified by Organization Details LastModified Time None Recorded Advance Directives Directive None Recorded Payers Encounter Date Sequence Insurance Name Policy Number Policy Felipe Covered Member ID Felipe Member ID Guarantor Name 02/27/2021 1 [employer] - [facility] - CHOICE PLUS (PPO) Ashly Lamas [id number] Miguel Lamas 02/18/2022 1 [place] [id number] Ashly Lamas [id number] Miguel Lamas 04/30/2023 1 [place] [id number] Ashly Lamas [id number] Miguel De León Episode No OBEpisode recorded.
--- OUTSIDE RECORDS SUMMARY | 2024-09-11 13:35 | XMS_ITS | Clinical Summary ---
Author Organization [facility] Address [address] [place] [address] Phone Care Team Providers Care Crop Picker Name Role Phone GENE LEMUS, STACEY Jackson Primary Care Provider [phone] STEFANIE LAKE, MARGOT Paniagua Unavailable [phone] Reason for Visit and Chief Complaint The Chief Complaint is: WWE- no issues or concerns- same partner Problems Includes: Problems addressed during this encounter and other active Problems All Visits Onset Date Resolved Date Provider Condition S tatus Gynecologic Services Thermal Endometrial Ablation 02/08/2022 CASS ASHLEY WHNP-BC Active Last Documented On 02/08/2022 8:18AM ; [facility] Note: Nichole/LILLIEL 3-29-21 - - Dr. Triana eth Bicornuate Uterus Obstetric 09/14/2013 CASS ASHLEY WHNP-BC Active Last Documented On 09/14/2013 8:51AM ; [facility] Note: Stable - surgery to repair done 20 10 Diabetes Mellitus 09/14/2013 CASS PRINCE WHNP-BC Active Last Documented On 09/14/2013 8:50AM ; [facility] Note: Type I Previous Leep 09/14/2013 CASS ASHLEY WHNP-BC Active Last Documented On 4 8:50AM ; [facility] Plan of Treatment Pending Tests Order Diagnosis Results Due Ordering P roazra Radiology @ other - *MAMMOGRAPHY SCREENING MAMMOGRAM Encntr screen mammogram for malignant neoplasm of breast 08/27/23 CASS ASHLEY WHNP-BC Last Documented On 4 8:18AM ; [facility] Instructions to patient Instructions for patient : B reast Self Exam discussed Last Documented On 4 9:06AM ; [facility] Safe sex counseling Last Documented On 4 9:07AM ; [facility] Education and Decision Aids were provided during visit for: Patient Education: Daily hector cium and vitamin D Last Documented On 4 9:06AM ; [facility] Patient Education: weight be aring exercise Last Documented On 4 9:06AM ; [facility] Assessments Includes: Assessments from this encounter Findings - NORMAL FEMALE EXAM [Z01.419 - Encounter for gynecological examination (general) (routine) without abnormal findings] - Last Documented On 08/13/2023 9:28AM ; [facility] Instructions Includes: Instructions from this encounter Instructions to patient Instructions for patient : B reast Self Exam discussed Last Documented On 4 9:06AM ; [facility] Safe sex counseling Last Documented On 4 9:07AM ; [facility] Education and Decision Aids were provided during visit for: Patient Education: Daily hector cium and vitamin D Last Documented On 4 9:06AM ; [facility] Patient Education: weight be aring exercise Last Documented On 4 9:06AM ; [facility] Medical Equipment - Implanted Devices Includes: Current Devices No Medical Equipment Recorded Medications Includes: Medications discussed during this encounter and other current Medications Discontinued / Stopped on this date ZAFAR MONTAÑO MD on 01/23/2022 Amphetamine-Dextroamphetamin e 15 MG Oral Tablet Provider: ZAFAR MONTAÑO MD Diagnosis: Last Documented On 08/13/2023 9:16AM By Monika NORMAN ; [facility] Current Medications (continue as prescribed) Valsartan 160 MG Oral Tablet 05/04/2023 Provider: ZAFAR MONTAÑO MD Diagnosis: Last Documented On 08/13/2023 9:16AM By Monika NORMAN ; [facility] Meloxicam 15 MG Oral Tablet 10/10/2020 Provider: Diagnosis: Last Documented On 1 4:19PM By KATE NORMAN ; [facility] Pristiq 100MG Oral Tablet Extended Release 24 Hour 11/2018 Provider: Diagnosis: Last Documented On 07/09/2018 1:43PM By TUSHAR NORMAN ; [facility] HumaLOG Mix 50/50 (50-50) 100 UNIT/ML SC SUSP 09/15/19 14 Provider: Diagnosis: Last Documented On 09/14/2013 8:54AM By TUSHAR NORMAN ; [facility] Past Medications on file Diflucan 150 MG Oral Tablet 01/10/2023 - 01/11/2023 Pr ovider: Diagnosis: 1 tab po may repeat in 3 days if needed. Last Documented On 01/10/2023 9:45AM By Tri NORMAN ; [facility] RE OB + DHA 27-1 & 250 MG OR MISC 10/26/2009 - 011 Provider: SHANNON OWENS MD Diagnosis: I'm trying to give the FREE PNV that contains DHA, please let my office know if this is not it Last Documented On 10/26/2009 12:01PM By SHANNON OWENS MD ; [facility] Alesse OR TABS 10/20/2007 - 10/14/2008 Provider: Diagnosis: Last Documented On 08/08/2009 2:42PM By BLUE DILL ; [facility] Provera 10 MG OR TABS 04/06/2007 - 04/16/2007 Provider : Diagnosis: Last Documented On 08/08/2009 2:44PM By BLUE DILL ; [facility] Loestrin 24 Fe 1-20 MG-MCG OR TABS 04/07/2006 - 2006 Provider: Diagnosis: Last Documented On 08/08/2009 2:45PM By BLUE DILL ; [facility] Medications Administered Includes: Administered Medications from this encounter No Administered Medications Recorded Vital Signs Includes: Vital Signs from this encounter Vital Name 08/13/2023 09:08A Blood Pressure Sitting (mmHg) 114/86 Temp-Temporal 98.1 Height (in) 59 Weight (lb) 108 Body Mass Index 21.8 Body Surface Area 1.4 Last Documented: On 08/13/2023 9:12AM ; [facility] Results Includes: Results discussed during this encounter No Results Recorded For Specified Dates History of Present Illness Includes: History of Present Illness from this encounter DOROTEO LR is a 38 year old female. - Allergy list reviewed - Medication list reviewed - Primary Care Provider: Dr. Montaño Social History Description Last Updated Alcohol use 08/13/2023 Last Documented On 4 9:28AM ; [facility] Not using drugs 08/13/2023 Last Documented On 4 9:28AM ; [facility] Sexually active 08/13/2023 Last Documented On 4 9:28AM ; [facility] Sexually active with 1 partners in the l ast year 08/13/2023 Last Documented On 4 9:28AM ; [facility] Former smoker 07/21/2020 Last Documented On 4 9:06AM ; [facility] Smoking Status Unknown Procedures and Surgical History Includes: Procedures from this encounter Procedures Code Diagnosis Performing Provider Service L ocation Service Date low fat diet Last Documented On 4 9:07AM ; [facility] use of tobacco assessment performed 1000F Last Documented On 4 9:13AM ; [facility] history of cervical Pap smear 02/08/2022 81072 Last Documented On 4 9:14AM ; [facility] Cervical Pap Smear performed Q0091 Last Documented On 4 9:07AM ; [facility] Surgical History Last Updated History of tubal ligation 08/28/2020 with novasure ablation 08/28/20 [facility] 10/10/2020 Last Documented On 4 9:06AM ; [facility] History of cholecystectomy 07/21/2020 Last Documented On 4 9:06AM ; [facility] History of Loop electrode excision of ce rvix (LEEP) 07/21/2020 Last Documented On 4 9:06AM ; [facility] Previous colposcopy 07/21/2020 Last Documented On 4 9:06AM ; [facility] Medical History Includes: Medical History addressed during this encounter Description Last Updated Surgical / procedural histor y bilateral breast implants ~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 ~c/s at [facility] 36 wks 2011 ~12-20 left elbow reconstruction ~Fusion left thumb- 2022 Dr. Ruth 08/13/2023 Last Documented On 4 9:28AM ; [facility] History of screening mammogram was perfo rmed 02/13/2022 08/13/2023 Last Documented On 4 9:28AM ; [facility] LMP: 202008/13/2023 Last Documented On 4 9:28AM ; [facility] left elbow surgery and reconstruction Last Documented On 4 9:06AM ; [facility] section 07/21/2020 Last Documented On 4 9:06AM ; [facility] Diabetes 07/21/2020 Last Documented On 4 9:06AM ; [facility] 1 07/21/2020 Last Documented On 4 9:06AM ; [facility] History of cervical dysplasia 07/21/2020 Last Documented On 4 9:06AM ; [facility] History of type 1 diabetes m ellitus last HgA1c was on 06/09/20: 9.3 which is unchanged from before 07/21/2020 Last Documented On 4 9:06AM ; [facility] Para 1 07/21/2020 Last Documented On 4 9:06AM ; [facility] Family History Includes: Family History addressed during this encounter Description Last Updated Maternal aunt's history of m alignant female breast neoplasm 2 maternal aunts in their 50's ~maternal 1st cousin 10/11/2019 Last Documented On 4 9:06AM ; [facility] Maternal history of pure hypercholestero lemia mother 07/15/2019 Last Documented On 4 9:06AM ; [facility] Paternal grandmother's history of diabet es mellitus paternal women 07/15/2019 Last Documented On 4 9:06AM ; [facility] Paternal history of hypertension father 07/15/2019 Last Documented On 4 9:06AM ; [facility] Family history of heart disease both raf es 09/14/2013 Last Documented On 4 9:06AM ; [facility] Family history of malignant female breast neoplasm 2 maternal aunts ~maternal 1st cousin 09/14/2013 Last Documented On 4 9:06AM ; [facility] Review of Systems Includes: Review of Systems from this encounter Gastrointestinal: No pelvic pain. Genitourinary: No menorrhagia. No dysmenorrhea and no bleeding between periods. No vaginal discharge. Mental Status Includes: Mental Status from this encounter No Mental Status Recorded Functional Status Includes: Functional Status from this encounter No Functional Status Recorded Physical Exam Includes: Physical Exam from this encounter Allergies Includes: Active Allergies Substance Type Reaction Onset Date Resolved Date Statu s Zosyn Allergy 06/13/2020 Active Last Documented On 08/13/2023 9:17AM ; [facility] Note: throat closes Zithromax Z-Doug Allergy 10/26/2009 Keno ctive Last Documented On 9 1:42PM ; [facility] Tylenol with Codeine #3 Allergy Nausea, Vomiting Active Last Documented On 4 9:17AM ; [facility] Encounters Encounter Provider Location Date Check-In Time Check-Out Time Diagnosis [facility] 08/13/19 24 9:07AM 9:29AM Normal Female Exam Insurance Includes: Active Insurance Policies Plan Name Member ID Group # Subscriber Relationship Effect erika Dates [id number] DALTON LR Self Clinical Notes Includes: Clinical Notes from this encounter * Progress note Date Encounter Last Documented by 08/13/2023 [facility] - ESTABLISHED PT Last documented on 08/13/2023; 9:28 AM, CASS AGUILA-; [facility] Active Problems & Conditions - Bicornuate Uterus Obstetric - surgery to repair done 2009 - Diabetes Mellitus - Type I - Gynecologic Services Thermal Endometrial Ablation - Nichole/BTL 08-28-20 - - Dr. Cortes - Previous Leep Chief Complaint The Chief Complaint is: WWE- no issues or concerns- same partner. History of Present Illness DALTON LR is a 38 year old female. - Allergy list reviewed - Medication list reviewed - Primary Care Provider: Dr. Montaño Current Medication - HumaLOG Mix 50/50 (50-50) 100 UNIT/ML Suspension 0 days, 0 refills - Meloxicam 15 MG Oral Tablet 0 days, 0 refills - Pristiq 100MG Oral Tablet Extended Release 24 Hour 100 MG 0 days, 0 refills - Valsartan 160 MG Oral Tablet 30 days, 0 refills Past Medical/Surgical History Reported: LMP: 2020. Medical: Diabetes. Surgical / Procedural: Surgical / procedural history bilateral breast implants 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 c/s at [facility] 36 wks 2011 12-20 left elbow reconstruction Fusion left thumb- 2022 Dr. Ruth. Previous colposcopy. : 1, para 1, and history of the : section. Other: Screening mammogram was performed 02/13/2022 Diagnoses: Cervical dysplasia. Type 1 diabetes mellitus last HgA1c was on 06/09/20: 9.3 which is unchanged from before Left elbow surgery and reconstruction. Surgical: - Cholecystectomy - Tubal ligation 08/28/2020 with novasure ablation 08/28/20 [facility] - Loop electrode excision of cervix (LEEP) Social History Tobacco use: Former smoker. Alcohol: Alcohol use. Drug Use: Not using drugs. Sexual: Sexually active with 1 partners in the last year. Allergies - Tylenol with Codeine #3 Reaction: Nausea, Vomiting - Zosyn Family History Heart disease both sides Malignant female breast neoplasm 2 maternal aunts maternal 1st cousin Paternal: Systemic hypertension father Maternal: Pure hypercholesterolemia mother Paternal grandmother's: Diabetes mellitus paternal women Maternal aunt's: Malignant female breast neoplasm 2 maternal aunts in their 50's maternal 1st cousin Review Of Systems Gastrointestinal: No pelvic pain. Genitourinary: No menorrhagia. No dysmenorrhea and no bleeding between periods. No vaginal discharge. Physical Findings - Vitals taken 08/13/2023 09:08 am BP-Sitting 114/86 mmHg Temp-Temporal 98.1 F Height 59 in Weight 108 lbs Body Mass Index 21.8 kg/m2 Body Surface Area 1.4 m2 Standard Measurements: - Patient was not observed to be obese. General Appearance: - Well developed. - Well nourished. - In no acute distress. Neck: Thyroid: - Showed no abnormalities. Lymph Nodes: - Supraclavicular lymph nodes were not enlarged. - Axillary lymph nodes were not enlarged. Breasts: General/bilateral: - Appearance of the breast was abnormal Bilateral implants. Right Breast: - Nipple was normal. - No abnormal secretion. - No mass was found. - No tenderness. Left Breast: - Nipple was normal. - No abnormal secretion. - No mass was found. - No tenderness. Lungs: - Clear to auscultation. Cardiovascular: Heart Rate And Rhythm: - Normal. Murmurs: - No murmurs were heard. Back: - No right costovertebral angle tenderness. - No left costovertebral angle tenderness. Abdomen: Palpation: - Abdominal non-tender. - No mass was palpated in the abdomen. Liver: - Not enlarged. Spleen: - Not enlarged. Urinary System: Bladder: - Normal. - Not distended. - Did not have a mass. - Incontinence was not demonstrated. Genitalia: External: - Genitalia showed no abnormalities. Pelvic: - No ovarian mass. Vagina: - No vaginal discharge was observed. - No cystocele was observed. - No rectocele was observed. Cervix: - Showed no lesion. - Did not demonstrate pain elicited by motion. Uterus: - Not enlarged. - Not tender. Uterine Adnexae: - Uterine adnexa was not tender. Rectovaginal: - Tissue was normal. Psychiatric: Appearance: - Grooming was normal. Tests Pathology: Cytology: Cervical Pap Smear performed. Assessment - NORMAL FEMALE EXAM [Z01.419 - Encounter for gynecological examination (general) (routine) without abnormal findings] Previous Tests Pathology: Cytology: Cervical Pap smear 02/08/2022. Therapy - Low fat diet. Counseling/Education - Instructions for patient: Breast Self Exam discussed - Safe sex counseling - Patient Education: Daily calcium and vitamin D - Patient Education: weight bearing exercise Plan StartCited - Encntr screen mammogram for malignant neoplasm of breast Radiology @ other/*MAMMOGRAPHY: SCREENING MAMMOGRAM Instructions: Additional images/ultrasounds if indicated Please send to PCP - due after 01-13-24 EndCited StartCited - Other Follow-up 1 year/prn EndCited Practice Management Preventive medicine established patient checkup adult 18-39 years; Use of tobacco assessment performed. Health Reminders - Assess BMI satisfied 08/13/2023. - Assess Tobacco Use satisfied 08/13/2023. - Blood Pressure Measurement satisfied 08/13/2023.
--- OUTSIDE RECORDS SUMMARY | 2024-09-11 13:40 | XMS_ITS | Continuity of Care Document ---
Author Organization [facility] Address [address] [place] [address] Phone Care Team Providers Care Control Panel Operator Name Role Phone Haja Shah MD Unavailable [...] on Encounter OFFICE/OUTPA TIENT VISIT EST [facility], [address] [address], [place], [address], [place] tel:[phone] [facility] Other dislocation of left ulnohumeral joint, subsequent encounter 9 Alyssa Smyth. [address] [place], [place], [id number] . tel: [phone] [facility], [address] [address], [place], [address], [place] tel:[phone] [facility] No Information 9 Alyssa Smyth. [address] [place] [address], [id number] . tel: [phone] OFFICE/OUTPA TIENT VISIT [facility], [address] [place] [address], [place], [address], [place] tel:[phone] [facility] Other dislocation of left ulnohumeral joint, subsequent encounter 9 Alyssa Smyth. [address] [place] [address], [id number] . tel: [phone] OFFICE/OUTPA TIENT VISIT [facility], [address] [place] [address], [place], [address], [place] tel:[phone] [facility] Other dislocation of left ulnohumeral joint, subsequent encounter 9 Alyssa Smyth. [address] [place] [address], [id number] . tel: [phone] OFFICE/OUTPA TIENT VISIT [facility], [address] [place] [address], [address], [place] tel:[phone] [facility] Other dislocation of left ulnohumeral joint, subsequent encounter 9 Alyssa Smyth. [address] [place] [address], [id number] . tel: [phone] OFFICE/OUTPA TIENT VISIT [facility], [address] [place] [address], [address], [place] tel:[phone] [facility] Lumbago with sciatica, left sideBilateral sacroiliitis 9 Aliza Palmer. [address] [place], [place], [id number] . tel: [phone] OFFICE/OUTPA TIENT VISIT [facility], [address], [place], [address], [place] tel:[phone] [facility] Other dislocation of left ulnohumeral joint, subsequent encounter 0 9 Alyssa Smyth. [address] [place], [place], [id number] . tel: [phone] OFFICE/OUTPA TIENT VISIT [facility], [address] [place] [address], [address], [place] tel:[phone] [facility] Other dislocation of left ulnohumeral joint, initial encounter 9 Alyssa Smyth. [address] [place] [address], [id number] . tel: [phone] OFFICE/OUTPA TIENT VISIT [facility], [address] [place] [address], [address], [place] [phone] [facility] Bilateral sacroiliitisLow back painCervicalgia Other specified dorsopathies, cervical region 6 Nico Sanches. [address] [place] [address] [address], [place], [place], [id number] . tel: [phone] OFFICE/OUTPA TIENT VISIT [facility], [address] [place] [address], [address], [place] tel:[phone] [facility] Bilateral sacroiliitisSpi nal enthesopathy of cervical regionCervicalg ia 6 Aliza Palmer. [address] [place] [address], [id number] . tel: [phone] OFFICE/OUTPA TIENT VISIT [facility], [address], [address], [place] tel:[phone] [facility] Spinal enthesopathy of cervical regionOther specified dorsopathies, cervical regionCervicalg ia Sep-2 1- [address], [place], [place], [id number] . tel: [phone] OFFICE/OUTPA TIENT VISIT EST [facility], [address], [place], [address], [phone] [facility] Bilateral sacroiliitisLum bago with sciatica, left side Hany-2 0-201 6 Nico Sanches. [address], [place], [place], [id number] . tel: [phone] Family History Family Member Type Diagnosis Age At Onset Mother Problem (finding) Alive and well Payers Payer name Insurance type Covered green party ID Authoriza tion(s) [facility] Choice/Choice Plus [id number] [id number] Social History Type Description Quantity Date Captured [...]
--- OUTSIDE RECORDS SUMMARY | 2024-09-11 13:40 | XMS_ITS | Clinical Summary ---
Author Organization [facility] Address [address] [place] [address] Phone Care Team Providers Care Fruit Cutter Name Role Phone GENE LEMUS, STACEY Jackson Primary Care Provider [phone] STEFANIE LAKE, MARGOT Paniagua Unavailable [phone] Reason for Visit and Chief Complaint NO SHOW Problems Includes: Problems addressed during this encounter and other active Problems All Visits Onset Date Resolved Date Provider Condition S tatus Gynecologic Services Thermal Endometrial Ablation 02/08/2022 CASS Yoli GABI WHNP-BC Active Last Documented On 02/08/2022 8:18AM ; [facility] Note: Nichole/BTL 3-29-21 - - Dr. Triana eth Bicornuate Uterus Obstetric 09/14/2013 CASS Yoli GABI WHNP-BC Active Last Documented On 09/14/2013 8:51AM ; [facility] Note: Stable - surgery to repair done 20 10 Diabetes Mellitus 09/14/2013 CASS PRINCE WHNP-BC Active Last Documented On 09/14/2013 8:50AM ; [facility] Note: Type I Previous Leep 09/14/2013 CASS Yoli GABI WHNP-BC Active Last Documented On 4 8:50AM ; [facility] Plan of Treatment Pending Tests Order Diagnosis Results Due Ordering P rovider Radiology @ other - *MAMMOGRAPHY SCREENING MAMMOGRAM Encntr screen mammogram for malignant neoplasm of breast 08/27/23 CASS Yoli GABI WHNP-BC Last Documented On 4 8:18AM ; [facility] Assessments Includes: Assessments from this encounter No Assessments Recorded Medical Equipment - Implanted Devices Includes: Current Devices No Medical Equipment Recorded Medications Includes: Medications discussed during this encounter and other current Medications Current Medications (continue as prescribed) Valsartan 160 MG Oral Tablet 05/04/2023 Provider: ZAFAR MONTAÑO MD Diagnosis: Last Documented On 08/13/2023 9:16AM By Monika G[place] Yoli ; [facility] Meloxicam 15 MG Oral Tablet 10/10/2020 Provider: Diagnosis: Last Documented On 1 4:19PM By KATE NORMAN ; [facility] Pristiq 100MG Oral Tablet Extended Release 24 Hour 11/2018 Provider: Diagnosis: Last Documented On 07/09/2018 1:43PM By TUSHAR NORMAN ; [facility] HumaLOG Mix 50/50 (50-50) 100 UNIT/ML SC SUSP 09/15/19 14 Provider: Diagnosis: Last Documented On 09/14/2013 8:54AM By TUSHAR NORMAN ; [facility] Medications Administered Includes: Administered Medications from [...] Active Last Documented On 08/13/2023 9:17AM ; [facility] Note: throat closes Zithromax Z-Doug Allergy 10/26/2009 [place] ctive Last Documented On 9 1:42PM ; [facility] Tylenol with Codeine #3 Allergy Nausea, Vomiting 1 Active Last Documented On 4 9:17AM ; [facility] Encounters Encounter Provider Location Date Check-In Time Check-Out Time Diagnosis NO SHOW CASS ASHLEY [facility] 08/07/2023 2:42PM 11:59PM Insurance Includes: Active Insurance Policies Plan Name Member ID Group # Subscriber Relationship Effect erika Dates 1 - [facility] [id number] DALTON LR Self Clinical Notes Includes: Clinical Notes from this encounter No Clinical Notes Recorded
--- OUTSIDE RECORDS SUMMARY | 2024-09-11 13:40 | XMS_ITS | Clinical Summary ---
Author Organization [facility] Address [address] [place] [address] Phone Care Team Providers Care Rubbish Collection Supervisor Name Role Phone GENE LEMUS, STACEY Jackson Primary Care Provider [phone] STEFANIE LAKE, MARGOT Paniagua Unavailable [phone] Reason for Visit and Chief Complaint NO SHOW Problems Includes: Problems addressed during this encounter and other active Problems All Visits Onset Date Resolved Date Provider Condition S tatus Gynecologic Services Thermal Endometrial Ablation 02/08/2022 CASS Yoli GABI WHNP-BC Active Last Documented On 02/08/2022 8:18AM ; [facility] Note: Nichole/BTL 3-29-21 - - Dr. Triana eth Bicornuate Uterus Obstetric 09/14/2013 CASS Yoli GABI WHNP-BC Active Last Documented On 09/14/2013 8:51AM ; [facility] Note: Stable - surgery to repair done 20 10 Diabetes Mellitus 09/14/2013 CASS PRINCE WHNP-BC Active Last Documented On 09/14/2013 8:50AM ; [facility] Note: Type I Previous Leep 09/14/2013 CASS Yoli GABI WHNP-BC Active Last Documented On 4 8:50AM ; [facility] Plan of Treatment Pending Tests Order Diagnosis Results Due Ordering P rovider Radiology @ other - *MAMMOGRAPHY SCREENING MAMMOGRAM Encntr screen mammogram for malignant neoplasm of breast 08/27/23 CASS Yoli GABI WHNP-BC Last Documented On 4 8:18AM ; [facility] Assessments Includes: Assessments from this encounter No Assessments Recorded Medical Equipment - Implanted Devices Includes: Current Devices No Medical Equipment Recorded Medications Includes: Medications discussed during this encounter and other current Medications Current Medications (continue as prescribed) Valsartan 160 MG Oral Tablet 05/04/2023 Provider: ZAFAR MONTAÑO MD Diagnosis: Last Documented On 08/13/2023 9:16AM By Monika G[place] Yoli ; [facility] Meloxicam 15 MG Oral Tablet 10/10/2020 Provider: Diagnosis: Last Documented On 1 4:19PM By KATE NORMAN ; [facility] Pristiq 100MG Oral Tablet Extended Release 24 Hour 11/2018 Provider: Diagnosis: Last Documented On 07/09/2018 1:43PM By TUSHAR NORMAN ; [facility] HumaLOG Mix 50/50 (50-50) 100 UNIT/ML SC SUSP 09/15/19 14 Provider: Diagnosis: Last Documented On 09/14/2013 8:54AM By TUSHAR NORMAN ; [facility] Medications Administered Includes: Administered Medications from [...] Active Last Documented On 08/13/2023 9:17AM ; [facility] Note: throat closes Zithromax Z-Doug Allergy 10/26/2009 [place] ctive Last Documented On 9 1:42PM ; [facility] Tylenol with Codeine #3 Allergy Nausea, Vomiting 1 Active Last Documented On 4 9:17AM ; [facility] Insurance Includes: Active Insurance Policies Plan Name Member ID Group # Subscriber Relationship Effect erika Dates 1 - [facility] [id number] DALTON LR Self Clinical Notes Includes: Clinical Notes from this encounter No Clinical Notes Recorded
--- OUTSIDE RECORDS SUMMARY | 2024-09-11 13:40 | XMS_ITS | Clinical Summary ---
Author Organization [facility] Address [address] [place] [address] Phone Care Team Providers Care Biomedical Photographer Name Role Phone GENE LEMUS, STACEY Jackson Primary Care Provider [phone] STEFANIE LAKE, MARGOT Paniagua Unavailable [phone] Reason for Visit and Chief Complaint The Chief Complaint is: WWE- no issues or concerns- same partner Problems Includes: Problems addressed during this encounter and other active Problems All Visits Onset Date Resolved Date Provider Condition S tatus Gynecologic Services Thermal Endometrial Ablation 02/08/2022 CASS ASHLEY WHNP-BC Active Last Documented On 02/08/2022 8:18AM ; [facility] Note: Nichole/LILLIEL 3-29-21 - - Dr. Triana eth Bicornuate Uterus Obstetric 09/14/2013 CASS ASHLEY WHNP-BC Active Last Documented On 09/14/2013 8:51AM ; [facility] Note: Stable - surgery to repair done 20 10 Diabetes Mellitus 09/14/2013 CASS PRINCE WHNP-BC Active Last Documented On 09/14/2013 8:50AM ; [facility] Note: Type I Previous Leep 09/14/2013 CASS ASHLEY WHNP-BC Active Last Documented On 4 8:50AM ; [facility] Plan of Treatment Pending Tests Order Diagnosis Results Due Ordering P roazra Radiology @ other - *MAMMOGRAPHY SCREENING MAMMOGRAM Encntr screen mammogram for malignant neoplasm of breast 08/27/23 CASS ASHLEY WHNP-BC Last Documented On 4 8:18AM ; [facility] Instructions to patient Instructions for patient : B reast Self Exam discussed Last Documented On 4 9:06AM ; [facility] Safe sex counseling Last Documented On 4 9:07AM ; [facility] Education and Decision Aids were provided during visit for: Patient Education: Daily hector cium and vitamin D Last Documented On 4 9:06AM ; [facility] Patient Education: weight be aring exercise Last Documented On 4 9:06AM ; [facility] Assessments Includes: Assessments from this encounter Findings - NORMAL FEMALE EXAM [Z01.419 - Encounter for gynecological examination (general) (routine) without abnormal findings] - Last Documented On 08/13/2023 9:28AM ; [facility] Instructions Includes: Instructions from this encounter Instructions to patient Instructions for patient : B reast Self Exam discussed Last Documented On 4 9:06AM ; [facility] Safe sex counseling Last Documented On 4 9:07AM ; [facility] Education and Decision Aids were provided during visit for: Patient Education: Daily hector cium and vitamin D Last Documented On 4 9:06AM ; [facility] Patient Education: weight be aring exercise Last Documented On 4 9:06AM ; [facility] Medical Equipment - Implanted Devices Includes: Current Devices No Medical Equipment Recorded Medications Includes: Medications discussed during this encounter and other current Medications Discontinued / Stopped on this date ZAFAR MONTAÑO MD on 01/23/2022 Amphetamine-Dextroamphetamin e 15 MG Oral Tablet Provider: ZAFAR MONTAÑO MD Diagnosis: Last Documented On 08/13/2023 9:16AM By Monika NORMAN ; [facility] Current Medications (continue as prescribed) Valsartan 160 MG Oral Tablet 05/04/2023 Provider: ZAFAR MONTAÑO MD Diagnosis: Last Documented On 08/13/2023 9:16AM By Monika NORMAN ; [facility] Meloxicam 15 MG Oral Tablet 10/10/2020 Provider: Diagnosis: Last Documented On 1 4:19PM By KATE NORMAN ; [facility] Pristiq 100MG Oral Tablet Extended Release 24 Hour 11/2018 Provider: Diagnosis: Last Documented On 07/09/2018 1:43PM By TUSHAR NORMAN ; [facility] HumaLOG Mix 50/50 (50-50) 100 UNIT/ML SC SUSP 09/15/19 14 Provider: Diagnosis: Last Documented On 09/14/2013 8:54AM By TUSHAR NORMAN ; [facility] Past Medications on file Diflucan 150 MG Oral Tablet 01/10/2023 - 01/11/2023 Pr ovider: Diagnosis: 1 tab po may repeat in 3 days if needed. Last Documented On 01/10/2023 9:45AM By Tri NORMAN ; [facility] RE OB + DHA 27-1 & 250 MG OR MISC 10/26/2009 - 011 Provider: SHANNON OWENS MD Diagnosis: I'm trying to give the FREE PNV that contains DHA, please let my office know if this is not it Last Documented On 10/26/2009 12:01PM By SHANNON OWENS MD ; [facility] Alesse OR TABS 10/20/2007 - 10/14/2008 Provider: Diagnosis: Last Documented On 08/08/2009 2:42PM By BLUE DILL ; [facility] Provera 10 MG OR TABS 04/06/2007 - 04/16/2007 Provider : Diagnosis: Last Documented On 08/08/2009 2:44PM By BLUE DILL ; [facility] Loestrin 24 Fe 1-20 MG-MCG OR TABS 04/07/2006 - 2006 Provider: Diagnosis: Last Documented On 08/08/2009 2:45PM By BLUE DILL ; [facility] Medications Administered Includes: Administered Medications from this encounter No Administered Medications Recorded Vital Signs Includes: Vital Signs from this encounter Vital Name 08/13/2023 09:08A Blood Pressure Sitting (mmHg) 114/86 Temp-Temporal 98.1 Height (in) 59 Weight (lb) 108 Body Mass Index 21.8 Body Surface Area 1.4 Last Documented: On 08/13/2023 9:12AM ; [facility] Results Includes: Results discussed during this encounter No Results Recorded For Specified Dates History of Present Illness Includes: History of Present Illness from this encounter DOROTEO LR is a 38 year old female. - Allergy list reviewed - Medication list reviewed - Primary Care Provider: Dr. Montaño Social History Description Last Updated Alcohol use 08/13/2023 Last Documented On 4 9:28AM ; [facility] Not using drugs 08/13/2023 Last Documented On 4 9:28AM ; [facility] Sexually active 08/13/2023 Last Documented On 4 9:28AM ; [facility] Sexually active with 1 partners in the l ast year 08/13/2023 Last Documented On 4 9:28AM ; [facility] Former smoker 07/21/2020 Last Documented On 4 9:06AM ; [facility] Smoking Status Unknown Procedures and Surgical History Includes: Procedures from this encounter Procedures Code Diagnosis Performing Provider Service L ocation Service Date low fat diet Last Documented On 4 9:07AM ; [facility] use of tobacco assessment performed 1000F Last Documented On 4 9:13AM ; [facility] history of cervical Pap smear 02/08/2022 03066 Last Documented On 4 9:14AM ; [facility] Cervical Pap Smear performed Q0091 Last Documented On 4 9:07AM ; [facility] Surgical History Last Updated History of tubal ligation 08/28/2020 with novasure ablation 08/28/20 [facility] 10/10/2020 Last Documented On 4 9:06AM ; [facility] History of cholecystectomy 07/21/2020 Last Documented On 4 9:06AM ; [facility] History of Loop electrode excision of ce rvix (LEEP) 07/21/2020 Last Documented On 4 9:06AM ; [facility] Previous colposcopy 07/21/2020 Last Documented On 4 9:06AM ; [facility] Medical History Includes: Medical History addressed during this encounter Description Last Updated Surgical / procedural histor y bilateral breast implants ~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 ~c/s at [facility] 36 wks 2011 ~12-20 left elbow reconstruction ~Fusion left thumb- 2022 Dr. Ruth 08/13/2023 Last Documented On 4 9:28AM ; [facility] History of screening mammogram was perfo rmed 02/13/2022 08/13/2023 Last Documented On 4 9:28AM ; [facility] LMP: 202008/13/2023 Last Documented On 4 9:28AM ; [facility] left elbow surgery and reconstruction Last Documented On 4 9:06AM ; [facility] section 07/21/2020 Last Documented On 4 9:06AM ; [facility] Diabetes 07/21/2020 Last Documented On 4 9:06AM ; [facility] 1 07/21/2020 Last Documented On 4 9:06AM ; [facility] History of cervical dysplasia 07/21/2020 Last Documented On 4 9:06AM ; [facility] History of type 1 diabetes m ellitus last HgA1c was on 06/09/20: 9.3 which is unchanged from before 07/21/2020 Last Documented On 4 9:06AM ; [facility] Para 1 07/21/2020 Last Documented On 4 9:06AM ; [facility] Family History Includes: Family History addressed during this encounter Description Last Updated Maternal aunt's history of m alignant female breast neoplasm 2 maternal aunts in their 50's ~maternal 1st cousin 10/11/2019 Last Documented On 4 9:06AM ; [facility] Maternal history of pure hypercholestero lemia mother 07/15/2019 Last Documented On 4 9:06AM ; [facility] Paternal grandmother's history of diabet es mellitus paternal women 07/15/2019 Last Documented On 4 9:06AM ; [facility] Paternal history of hypertension father 07/15/2019 Last Documented On 4 9:06AM ; [facility] Family history of heart disease both raf es 09/14/2013 Last Documented On 4 9:06AM ; [facility] Family history of malignant female breast neoplasm 2 maternal aunts ~maternal 1st cousin 09/14/2013 Last Documented On 4 9:06AM ; [facility] Review of Systems Includes: Review of Systems [...] Active Last Documented On 08/13/2023 9:17AM ; [facility] Note: throat closes Zithromax Z-Doug Allergy 10/26/2009 [place] ctive Last Documented On 9 1:42PM ; [facility] Tylenol with Codeine #3 Allergy Nausea, Vomiting Active Last Documented On 4 9:17AM ; [facility] Encounters Encounter Provider Location Date Check-In Time Check-Out Time Diagnosis [facility]13[facility]19 24 9:07AM 9:29AM Normal Female Exam Insurance Includes: Active Insurance Policies Plan Name Member ID Group # Subscriber Relationship Effect erika Dates 1 - [id number] D[place]TON LR Self Clinical Notes Includes: Clinical Notes from this encounter * Progress note Date Encounter Last Documented by 08/13/2023 WELL WOMAN - ESTABLISHED PT Last documented on 08/13/2023; 9:28 AM, CASS AGUILA-; [facility] Active Problems & Conditions - Bicornuate Uterus [...] fix her bicornuate uterus 2009 c/s at [facility] 36 wks 2011 12-20 left elbow reconstruction [...] Tubal ligation 08/28/2020 with novasure ablation 08/28/20 [facility] - Loop electrode excision of cervix [...]
--- OUTSIDE RECORDS SUMMARY | 2024-09-11 13:40 | XMS_ITS ---
Care Plan - [facility] Created on: September 11, 2024 DALTON LR : 1985 Sex: Female Author Organization [facility] Address [address] [place] [address] Phone Care Team Providers Care Force Variation Equipment Tender Name Role Phone GENE LEMUS, STACEY Jackson Primary Care Provider [phone] STEFANIE LAKE, MARGOT Paniagua Unavailable [phone]
--- OUTSIDE RECORDS SUMMARY | 2024-09-11 13:40 | XMS_ITS | Continuity of Care Document ---
Author Organization [facility] Address [address] [place] [address] Phone Care Team Providers Care Supervisor Offset Plate Preparation Name Role Phone Unavailable Unavailable Unavailable Advance Directives Directive Yes / No Effective Date File Name No Information Encounters Encounter Description Practice Location Reason(s) For Visit Diagnoses Date Provider Providers Copied on Encounter [facility], [address] [place], [place], [id number], tel:[phone] [facility] No Information No Information Referring Provider: AMMY COLE I, [address], [place], [address]. tel:[phone] Family History Family Member Type Diagnosis Age At Onset No Information Payers Payer name Insurance type Covered alliance party ID Authorrikya ten(s) [facility] PPO [id number] Social History Type Description Quantity Date Captured Comments Sex Female Smoking Status No Information Chief Complaint And Reason For Visit No Information History Of Present Illness Encounter Date Complaint History Of Prese nt Illness No Information Instructions Date Instruction Additional Infor mation No Information Assessments Type Assessment Date No Information
--- OUTSIDE RECORDS SUMMARY | 2024-09-11 13:40 | XMS_ITS | Clinical Summary ---
Author Organization [facility] Address [address] [place] [address] Phone Care Team Providers Care Pulp Mill Supervisor Name Role Phone GENE LEMUS, STACEY Jackson Primary Care Provider [phone] STEFANIE LAKE, MARGOT Paniagua Unavailable [phone] Reason for Visit and Chief Complaint * PHONE CALL Problems Includes: Problems addressed during this encounter and other active Problems All Visits Onset Date Resolved Date Provider Condition S tatus Gynecologic Services Thermal Endometrial Ablation 02/08/2022 CASS Yoli GABI WHNP-BC Active Last Documented On 02/08/2022 8:18AM ; [facility] Note: Nichole/BTL 3-29-21 - - Dr. Triana eth Bicornuate Uterus Obstetric 09/14/2013 CASS Yoli GABI WHNP-BC Active Last Documented On 09/14/2013 8:51AM ; [facility] Note: Stable - surgery to repair done 20 10 Diabetes Mellitus 09/14/2013 CASS PRINCE WHNP-BC Active Last Documented On 09/14/2013 8:50AM ; [facility] Note: Type I Previous Leep 09/14/2013 CASS Yoli GABI WHNP-BC Active Last Documented On 4 8:50AM ; [facility] Plan of Treatment Pending Tests Order Diagnosis Results Due Ordering P rovider Radiology @ other - *MAMMOGRAPHY SCREENING MAMMOGRAM Encntr screen mammogram for malignant neoplasm of breast 08/27/23 CASS Yoli GABI WHNP-BC Last Documented On 4 8:18AM ; [facility] [...] 08/13/2023 9:16AM By Monika G[place] Yoli ; [facility] Meloxicam 15 MG Oral Tablet 10/10/2020 Provider: Diagnosis: Last Documented On 1 4:19PM By KATE NORMAN ; [facility] Pristiq 100MG Oral Tablet Extended Release 24 Hour 11/2018 Provider: Diagnosis: Last Documented On 07/09/2018 1:43PM By TUSHAR NORMAN ; [facility] HumaLOG Mix 50/50 (50-50) 100 UNIT/ML SC SUSP 09/15/19 14 Provider: Diagnosis: Last Documented On 09/14/2013 8:54AM By TUSHAR NORMAN ; [facility] Medications Administered Includes: Administered Medications from this [...] Active Last Documented On 08/13/2023 9:17AM ; [facility] Note: throat closes Zithromax Z-Doug Allergy 10/26/2009 [place] ctive Last Documented On 9 1:42PM ; [facility] Tylenol with Codeine #3 Allergy Nausea, Vomiting 1 Active Last Documented On 4 9:17AM ; [facility] Encounters Encounter Provider Location Date Check-In Time Check-Out Time Diagnosis * PHONE CALL [facility]ASS [facility] 3 11:08AM 11:59PM Insurance Includes: Active Insurance Policies Plan Name Member ID Group # Subscriber Relationship Effect erika Dates 1 - [facility] [id number] DALTON LR Self Clinical Notes Includes: Clinical Notes from this encounter No Clinical Notes Recorded
--- OUTSIDE RECORDS SUMMARY | 2024-09-11 13:40 | XMS_ITS | Clinical Summary ---
Author Organization [facility] Address [address] [place] [address] Phone Care Team Providers Care Cryptographic Clerk Name Role Phone GENE LEMUS, STACEY Jackson Primary Care Provider [phone] STEFANIE LAKE, MARGOT [place] Unavailable [phone] Reason for Visit and Chief Complaint * PHONE CALL Problems Includes: Problems addressed during this encounter and other active Problems All Visits Onset Date Resolved Date Provider Condition S tatus Gynecologic Services Thermal Endometrial Ablation 02/08/2022 CASS Yoli GABI WHNP-BC Active Last Documented On 02/08/2022 8:18AM ; [facility] Note: Nichole/BTL 3-29-21 - - Dr. Triana eth Bicornuate Uterus Obstetric 09/14/2013 CASS Yoli GABI WHNP-BC Active Last Documented On 09/14/2013 8:51AM ; [facility] Note: Stable - surgery to repair done 20 10 Diabetes Mellitus 09/14/2013 CASS PRINCE WHNP-BC Active Last Documented On 09/14/2013 8:50AM ; [facility] Note: Type I Previous Leep 09/14/2013 CASS Yoli GABI WHNP-BC Active Last Documented On 4 8:50AM ; [facility] Plan of Treatment Pending Tests Order Diagnosis Results Due Ordering P rovider Radiology @ other - *MAMMOGRAPHY SCREENING MAMMOGRAM Encntr screen mammogram for malignant neoplasm of breast 08/27/23 CASS Yoli GABI WHNP-BC Last Documented On 4 8:18AM ; [facility] Assessments Includes: Assessments from this encounter No Assessments Recorded Medical Equipment - Implanted Devices Includes: Current Devices No Medical Equipment Recorded Medications Includes: Medications discussed during this encounter and other current Medications Current Medications (continue as prescribed) Valsartan 160 MG Oral Tablet 05/04/2023 Provider: ZAFAR MONTAÑO MD Diagnosis: Last Documented On 08/13/2023 9:16AM By Monika Garrison Yoli ; [facility] Meloxicam 15 MG Oral Tablet 10/10/2020 Provider: Diagnosis: Last Documented On 4:19PM By KATE NORMAN ; [facility] Pristiq 100MG Oral Tablet Extended Release 24 Hour 11/2018 Provider: Diagnosis: Last Documented On 07/09/2018 1:43PM By TUSHAR NORMAN ; [facility] HumaLOG Mix 50/50 (50-50) 100 UNIT/ML SC SUSP 09/15/19 14 Provider: Diagnosis: Last Documented On 09/14/2013 8:54AM By TUSHAR NORMAN ; [facility] Past Medications on file Diflucan 150 MG Oral Tablet 01/10/2023 - 01/11/2023 Pr ovider: Diagnosis: 1 tab po may repeat in 3 days if needed. Last Documented On 01/10/2023 9:45AM By Tri NORMAN ; [facility] RE OB + DHA 27-1 & 250 MG OR MISC 10/26/2009 - 011 Provider: SHANNON OWENS MD Diagnosis: I'm trying to give the FREE PNV that contains DHA, please let my office know if this is not it Last Documented On 10/26/2009 12:01PM By SHANNON OWENS MD ; [facility] Alesse OR TABS 10/20/2007 - 10/14/2008 Provider: Diagnosis: Last Documented On 08/08/2009 2:42PM By BLUE DILL ; [facility] Provera 10 MG OR TABS 04/06/2007 - 04/16/2007 Provider : Diagnosis: Last Documented On 08/08/2009 2:44PM By BLUE DILL ; [facility] Loestrin 24 Fe 1-20 MG-MCG OR TABS 04/07/2006 - 2006 Provider: Diagnosis: Last Documented On 08/08/2009 2:45PM By BLUE DILL ; [facility] Medications Administered Includes: Administered Medications from this encounter No Administered Medications Recorded Results Includes: Results discussed during this encounter No Results Recorded For Specified Dates History of Present Illness Includes: History of Present Illness from this encounter No History of Present Illness Recorded Social History Description Last Updated Alcohol use very rare 08/13/2023 Last Documented On 3 9:40AM ; [facility] Not using drugs 08/13/2023 Last Documented On 3 9:40AM ; [facility] Sexually active 08/13/2023 Last Documented On 3 9:40AM ; [facility] Sexually active with 1 partners in the l ast year 08/13/2023 Last Documented On 3 9:40AM ; [facility] Exercising regularly 07/21/2020 Last Documented On 3 9:40AM ; [facility] Former smoker 07/21/2020 Last Documented On 3 9:40AM ; [facility] Marital history Single 07/21/2020 Last Documented On 3 9:40AM ; [facility] Smoking status : Never smoker 07/21/2020 Last Documented On 3 9:40AM ; [facility] Social history changed 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[place] 07/21/2020 Last Documented On 3 9:40AM ; [facility] control is being practiced ocps Last Documented On 3 9:40AM ; [facility] Procedures and Surgical History Surgical History Last Updated History of tubal ligation 08/28/2020 with novasure ablation 08/28/20 [facility] 10/10/2020 Last Documented On 3 9:40AM ; [facility] History of cholecystectomy 07/21/2020 Last Documented On 3 9:40AM ; [facility] History of Loop electrode excision of ce rvix (LEEP) 07/21/2020 Last Documented On 3 9:40AM ; [facility] Previous colposcopy 07/21/2020 Last Documented On 3 9:40AM ; [facility] Surgical / procedural histor y bilateral breast implants ~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 ~c/s at [facility] 36 wks 2012 ~12-20 left elbow reconstruction 07/21/2020 Last Documented On 3 9:40AM ; [facility] Medical History Includes: Medical History addressed during this encounter Description Last Updated LMP: 08/17/2020 08/13/2023 Last Documented On 3 9:40AM ; [facility] Contraception: Tubal 08/28/20 with novasu re ablation 10/10/2020 Last Documented On 3 9:40AM ; [facility] Last pap smear date 07/21/2020 09/12/2020 Last Documented On 3 9:40AM ; [facility] left elbow surgery and reconstruction Last Documented On 3 9:40AM ; [facility] section 07/21/2020 Last Documented On 3 9:40AM ; [facility] Diabetes 07/21/2020 Last Documented On 3 9:40AM ; [facility] 1 07/21/2020 Last Documented On 3 9:40AM ; [facility] History of cervical dysplasia 07/21/2020 Last Documented On 3 9:40AM ; [facility] History of Pap smear done 07/15/201907/03 Last Documented On 3 9:40AM ; [facility] History of type 1 diabetes m ellitus last HgA1c was on 06/09/20: 9.3 which is unchanged from before 07/21/2020 Last Documented On 3 9:40AM ; [facility] Para 1 07/21/2020 Last Documented On 3 9:40AM ; [facility] Result: normal 07/21/2020 Last Documented On 3 9:40AM ; [facility] Family History Includes: Family History addressed during this encounter Description Last Updated Maternal aunt's history of m alignant female breast neoplasm 2 maternal aunts in their 50's ~maternal 1st cousin 10/11/2019 Last Documented On 3 9:40AM ; [facility] Family history unchanged 07/15/2019 Last Documented On 3 9:40AM ; [facility] Maternal history of pure hypercholestero lemia mother 07/15/2019 Last Documented On 3 9:40AM ; [facility] Paternal grandmother's history of diabet es mellitus paternal women 07/15/2019 Last Documented On 3 9:40AM ; [facility] Paternal history of hypertension father 07/15/2019 Last Documented On 3 9:40AM ; [facility] Family history of diabetes mellitus ramirez rnal women 09/14/2013 Last Documented On 3 9:40AM ; [facility] Family history of heart disease both raf es 09/14/2013 Last Documented On 3 9:40AM ; [facility] Family history of hypercholesterolemia m other 09/14/2013 Last Documented On 3 9:40AM ; [facility] Family history of hypertension father Last Documented On 3 9:40AM ; [facility] Family history of malignant female breast neoplasm 2 maternal aunts ~maternal 1st cousin 09/14/2013 Last Documented On 3 9:40AM ; [facility] Family history of Cancer 08/08/2009 Last Documented On 3 9:40AM ; [facility] Family history of Diabetes 08/08/2009 Last Documented On 3 9:40AM ; [facility] Family medical history of high blood pre ssure 08/08/2009 Last Documented On 3 9:40AM ; [facility] Family medical history of High Cholester ol 08/08/2009 Last Documented On 3 9:40AM ; [facility] Review of Systems Includes: Review [...] Active Last Documented On 08/13/2023 9:17AM ; [facility] Note: throat closes Zithromax Z-Doug Allergy 10/26/2009 Margo ctive Last Documented On 9 1:42PM ; [facility] Tylenol with Codeine #3 Allergy Nausea, Vomiting 1 Active Last Documented On 4 9:17AM ; [facility] Encounters Encounter Provider Location Date Check-In Time Check-Out Time Diagnosis * PHONE CALL CASS Yoli BA 01/10/2023 9:40AM 11:59PM Insurance Includes: Active Insurance Policies Plan Name Member ID Group # Subscriber Relationship Effect erika Dates 1 - [facility] [id number] [place] Self Clinical Notes Includes: Clinical Notes from this encounter * Progress note Date Encounter Last Documented by 01/10/2023 * PHONE CALL Last documented on 01/10/2023; 9:44 AM, CASS BA; [facility] Active Problems & Conditions - [...] worsen. pt phone # for return call: [phone] Date/Initials: 01/10/23 CLL. Current Medication - Amphetamine-Dextroamphetamine [...] fix her bicornuate uterus 2010 c/s at [facility] 36 wks 2012 12-20 left elbow reconstruction. Previous colposcopy. : 1, para 1, and history of the : section. Diagnoses: Cervical dysplasia. Type 1 diabetes mellitus last HgA1c was on 06/09/20: 9.3 which is unchanged from before Left elbow surgery and reconstruction. 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 Tobacco use: Former smoker. Smoking status: Never [...]
--- OUTSIDE RECORDS SUMMARY | 2024-09-11 13:40 | XMS_ITS | Continuity of Care Document ---
Author Organization [employer] [facility] Address [address] [place] [address] Phone Care Team Providers Care Certified Ophthalmic Assistant Name Role Phone Steven BARBARARosanna Unavailable Unavailable [...] Diagnoses Date Provider Providers Copied on Encounter [facility], [address], [place], [place], [address] , tel: [phone] [facility] No Information Mar-0 6-201 1 Steven Paka. [address], [place], [place], [address], . tel:[phone] [facility], [address], [place], [place], [address] , [place] tel: [phone] [facility] No Information Mar-0 6-200 8 Steven Paka. [address] , [address], [place], [place], [address], . tel:[phone] [facility], [address], [place], [place], [address] , [place] tel: [phone] [facility] ACUTE URI NOS Sep-3 0-200 8 Conversion Doctor. [facility] Rafaela [facility], [place], [address], [place]. [facility], [address], [place], [place], [address] , tel: [phone] [facility] MIGRNE UNSP WO NTRC MGRN 2 8 No Information [employer], [address], [place], [place], [address] , tel: [phone] [facility] EPISODIC MOOD DISORD NEC 2 [address] Steven [address], [address], [place], [place], [address], [place]. [phone] [facility], [address], [place], [place], [address] , [place] tel: [phone] [facility] OPEN WOUND OF FOOTVACCINATION FOR TD-DT 8 No Information [facility], [address], [place], [place], [address] , [place] tel: [phone] [facility] DMII WO CMP NT ST UNCNTRSPRAIN OF ANKLE NECHYPERLIPIDEMIA NEC/NOSSPRAIN OF WRIST NEC 8 No Information [facility], [address], [place], [place], [address] , tel: [phone] [facility] GENERAL OSTEOARTHROSISDMII RENAL UNCNTRLDVIRAL ENTERITIS NOS 8200 8 No Information [facility], [address], [place], [place], [address] , tel: [phone] [facility] LONG-TERM USE MEDS NECMALAISE AND FATIGUE NECHEADACHELUMBAGO Fe 8 No Information [facility], [address], [place], [place], [address] , [place] tel: [phone] [facility] CONTRACEPT PILL SURVEILLBACKACHE NOS 2 7 Steven [address]. [address], [address], [place], [place], [address], [place]. [phone] [facility], [address], [place], [place], [address] , tel: [phone] [facility] SPECFIED GLORIA ANOMAL NEC 7 No Information Family History Family Member Type Diagnosis Age At Onset No Information Immunizations Vaccine Date Status Comments 38491 - TD administered Source: Source Unspecified Payers Payer name Insurance type Covered constitution party ID Authoriza tion(s) No Information Social History [...]
--- OUTSIDE RECORDS SUMMARY | 2024-09-11 13:40 | XMS_ITS ---
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 Triana eth Menorrhagia 10/11/2019 02/08/2022 CASS ASHLEY WHNP-BC Resolved Last Documented On 02/08/2022 8:14AM ; [facility] Note: Unchanged Transient Ischemic Attack (Tia) 01/12/2016 Unknown CASS ASHLEY WHNP-BC Resolved Last Documented On 01/23/2017 9:59AM ; [facility] Note: NO HORMONES!! Bicornuate Uterus Obstetric 09/14/2013 CASS ASHLEY WHNP-BC Active Last Documented On 09/14/2013 8:51AM ; [facility] Note: Stable - surgery to repair done 20 10 Diabetes Mellitus 09/14/2013 CASS PRINCE WHNP-BC Active Last Documented On 09/14/2013 8:50AM ; [facility] Note: Type I Previous Leep 09/14/2013 CASS ASHLEY WHNP-BC Active Last Documented On 4 8:50AM ; [facility] Plan of Treatment Findings Encounter Date Ordered Clinical summary pro vided to patient WELL WOMAN EXAM with CASS ASHLEY NP-BC 07/21/2020 Last Documented On 1 3:39PM ; [facility] Ordered Clinical summary pro vided to patient ENDOMETRIAL BIOPSY with CASS ASHLEY NP-BC 09/07/2019 Last Documented On 0 9:18AM ; [facility] Ordered Clinical summary pro vided to patient PRESSURE CONTROLLER EXAM with CASS ASHLEY NP-BC 07/15/2019 Last Documented On 0 1:53PM ; [facility] Ordered Clinical summary pro vided to patient PRESSURE CONTROLLER EXAM with CASS ASHLEY NP-BC 07/09/2018 Last Documented On 9 1:53PM ; [facility] Ordered Clinical summary pro vided to patient PROBLEM VISIT with CASS ASHLEY NP-BC 10/23/2017 Last Documented On 8 1:35PM ; [facility] Ordered Clinical summary pro vided to patient PRESSURE CONTROLLER EXAM with CASS ASHLEY NP-BC 01/23/2017 Last Documented On 7 10:20AM ; [facility] Ordered Clinical summary pro vided to patient PRESSURE CONTROLLER EXAM with CASS ASHLEY NP-BC 11/14/2014 Last Documented On 5 3:51PM ; [facility] Ordered Clinical summary pro vided to patient NEW PRESSURE CONTROLLER EXAM with CASS ASHLEY NP-BC 09/14/2013 Last Documented On 4 9:03AM ; [facility] Pending Tests Order Diagnosis Results Due Ordering P rovider Radiology @ other - *MAMMOGRAPHY SCREENING MAMMOGRAM Encntr screen mammogram for malignant neoplasm of breast 08/27/23 CASS ASHLEY NP-BC Last Documented On 4 8:18AM ; [facility] Referrals To Diagnosis Maternal Medicine UTERINE ANOMALY NEC Last Documented On 0 1:17PM ; [facility] Other UTERINE ANOMALY NEC Last Documented On 0 1:17PM ; [facility] Instructions to patient Instructions for patient : B reast Self Exam discussed Last Documented On 4 9:06AM ; [facility] Safe sex counseling Last Documented On 4 9:07AM ; [facility] Instructions for patient : B reast Self Exam discussed Last Documented On 2 8:14AM ; [facility] Safe sex counseling Last Documented On 2 8:21AM ; [facility] Instructions for patient : B reast Self Exam discussed Last Documented On 1 3:17PM ; [facility] Safe sex counseling Last Documented On 1 3:18PM ; [facility] Instructions for patient ER if bleeding through reg. sized pad/tampon < 1 hour Last Documented On 0 8:59AM ; [facility] Instructions for patient : p atient is to keep a menstrual diary to help with further evaluation and treatment Last Documented On 0 8:59AM ; [facility] Instructions for patient ER if dizzy, vomiting or light-headed due to heavy bleeding Last Documented On 0 8:59AM ; [facility] Instructions for patient : B reast Self Exam discussed Last Documented On 0 1:31PM ; [facility] Instructions for patient : t he patient was instructed in the use and possible side effects of the medication prescribed. She is to maintain good hydration via p.o. fluids. We also discussed possible triggers for UTI and preventive measures Last Documented On 0 1:39PM ; [facility] Instructions for patient : K eep the area around the vulva dry. Allow the area to have exposure to air. Avoid irritants such as fabric softeners and perfumed soaps.~ Last Documented On 0 1:41PM ; [facility] Advised d/c scented bath pro ducts Last Documented On 0 1:41PM ; [facility] Patient to call if fever or back pain Last Documented On 0 1:39PM ; [facility] Instructed to decrease carbo nation and caffeine Last Documented On 0 1:39PM ; [facility] Increase water po Last Documented On 0 1:39PM ; [facility] Instructions For Patient: go od handwashing and perineal care Last Documented On 0 1:39PM ; [facility] Instructions for patient : B reast Self Exam discussed Last Documented On 9 1:32PM ; [facility] Safe sex counseling Last Documented On 9 1:33PM ; [facility] Instructions for patient : K eep the area around the vulva dry. Allow the area to have exposure to air. Avoid irritants such as fabric softeners and perfumed soaps.~ Last Documented On 8 1:27PM ; [facility] Advised d/c scented bath pro ducts Last Documented On 8 1:27PM ; [facility] Instructions for patient : B reast Self Exam discussed Last Documented On 7 9:59AM ; [facility] Safe sex counseling Last Documented On 7 9:59AM ; [facility] Instructions for patient : B reast Self Exam discussed Last Documented On 6 9:58AM ; [facility] Safe sex counseling Last Documented On 6 9:58AM ; [facility] Instructions for patient : B reast Self Exam discussed Last Documented On 5 3:32PM ; [facility] Safe sex counseling Last Documented On 5 3:32PM ; [facility] Instructions for patient : B reast Self Exam discussed Last Documented On 4 8:38AM ; [facility] Return to the clinic if cond ition worsens or new symptoms arise Last Documented On 4 8:52AM ; [facility] ER/ Pain Precautions Last Documented On 4 8:52AM ; [facility] Instructions for patient : B reast Self Exam discussed Last Documented On 0 12:01PM ; [facility] Education and Decision Aids were provided during visit for: Patient Education: Daily hector cium and vitamin D Last Documented On 4 9:06AM ; [facility] Patient Education: weight be aring exercise Last Documented On 4 9:06AM ; [facility] Patient Education: Daily hector cium and vitamin D Last Documented On 2 8:14AM ; [facility] Patient Education: weight be aring exercise Last Documented On 2 8:14AM ; [facility] Patient Education: Daily hector cium and vitamin D Last Documented On 1 3:17PM ; [facility] Patient Education: weight be aring exercise Last Documented On 1 3:17PM ; [facility] INFORMED CONSENT DISCUSSION: Endometrial biopsy was discussed in detail including discomfort, insufficient specimen with need to repeat test, and rare incidence of uterine perforation. Patient expressed understanding of the above and consented to the procedure Last Documented On 0 8:59AM ; [facility] Patient Education: Daily hector cium and vitamin D Last Documented On 0 1:31PM ; [facility] Patient Education: weight be aring exercise Last Documented On 0 1:31PM ; [facility] Patient Education: Daily hector cium and vitamin D Last Documented On 9 1:32PM ; [facility] Patient Education: weight be aring exercise Last Documented On 9 1:32PM ; [facility] Candidiasis Vulvovaginitis I nformation Sheet Given Last Documented On 8 1:34PM ; [facility] Patient Education: Daily hector cium and vitamin D Last Documented On 7 9:59AM ; [facility] Patient Education: weight be aring exercise Last Documented On 7 9:59AM ; [facility] Patient Education: Daily hector cium and vitamin D Last Documented On 6 9:58AM ; [facility] Patient Education: weight be aring exercise Last Documented On 6 9:58AM ; [facility] Patient Education: Daily hector cium and vitamin D Last Documented On 5 3:32PM ; [facility] Patient Education: weight be aring exercise Last Documented On 5 3:32PM ; [facility] Patient Education: Daily hector cium and vitamin D Last Documented On 4 8:38AM ; [facility] Patient Education: weight be aring exercise Last Documented On 4 8:38AM ; [facility] STD screening offered and de clined Last Documented On 0 12:01PM ; [facility] Assessments Includes: Assessments for all patient encounters Findings Encounter Date NORMAL FEMALE EXAM WELL WOMAN - ESTABLISHED PT w ith CASS ASHLEY WHNP-BC 08/13/2023 Last Documented On 4 9:28AM ; [facility] NORMAL FEMALE EXAM WELL WOMAN - ESTABLISHED PT w isiah ASHLEY WHNP-BC 02/08/2022 Last Documented On 2 8:30AM ; [facility] POST OP VISIT POST OP VISIT with MARGOT Juares MD 10/10/2020 Last Documented On 1 4:43PM ; [facility] POST OP VISIT CHECK UP with MARGOT WATTS MD 09/12/2020 Last Documented On 1 5:05PM ; [facility] Menorrhagia PREOP EXAM with MARGOT Ng 08/25/2020 Last Documented On 1 11:10AM ; [facility] NORMAL FEMALE EXAM WELL WOMAN EXAM with CASS ASHLEY NP-BC 07/21/2020 Last Documented On 1 3:39PM ; [facility] Menorrhagia CONSULTATION with MARGOT WATTS MD 06/13/2020 Last Documented On 1 1:06PM ; [facility] Menorrhagia CONSULTATION with MARGOT WATTS MD 10/11/2019 Last Documented On 0 4:38PM ; [facility] Menorrhagia ENDOMETRIAL BIOPSY with CASS ASHLEY NP-BC 09/07/2019 Last Documented On 0 9:18AM ; [facility] Dysuria PRESSURE CONTROLLER EXAM with CASS ASHLEY NP -BC 07/15/2019 Last Documented On 0 1:53PM ; [facility] NORMAL FEMALE EXAM PRESSURE CONTROLLER EXAM with CASS ASHLEY Bruno HNP-BC 07/15/2019 Last Documented On 0 1:53PM ; [facility] NORMAL FEMALE EXAM PRESSURE CONTROLLER EXAM with CASSDIPIKA ASHLEY W HNP-BC 07/09/2018 Last Documented On 9 1:53PM ; [facility] Carlene albicans vulvovaginitis PROBLEM VISIT wi th CASSDIPIKA ASHLEY WHNP-BC 10/23/2017 Last Documented On 8 1:35PM ; [facility] NORMAL FEMALE EXAM PRESSURE CONTROLLER EXAM with CASS ASHLEY [facility]- 01/23/2017 Last Documented On 7 10:20AM ; [facility] NORMAL FEMALE EXAM PRESSURE CONTROLLER EXAM with CASS ASHLEY W [facility]-BC 01/12/2016 Last Documented On 6 10:21AM ; [facility] NORMAL FEMALE EXAM PRESSURE CONTROLLER EXAM with CASS ASHLEY W [facility]-BC 11/14/2014 Last Documented On 5 3:51PM ; [facility] Female pelvic pain NEW PRESSURE CONTROLLER EXAM with CASS SUN NS [facility]- 09/14/2013 Last Documented On 4 9:03AM ; [facility] NORMAL FEMALE EXAM NEW PRESSURE CONTROLLER EXAM with CASS SUN NS [facility]- 09/14/2013 Last Documented On 4 9:03AM ; [facility] Female infertility PRESSURE CONTROLLER EXAM with SHANNON Ng 10/26/2009 Last Documented On 0 12:11PM ; [facility] Routine pelvic exam PRESSURE CONTROLLER EXAM with SHANNON OWENS MD 10/26/2009 Last Documented On 0 12:11PM ; [facility] Instructions Includes: Instructions for all patient encounters Instructions to patient Instructions for patient : B reast Self Exam discussed Last Documented On 4 9:06AM ; [facility] Safe sex counseling Last Documented On 4 9:07AM ; [facility] Instructions for patient : B reast Self Exam discussed Last Documented On 2 8:14AM ; [facility] Safe sex counseling Last Documented On 2 8:21AM ; [facility] Instructions for patient : B reast Self Exam discussed Last Documented On 1 3:17PM ; [facility] Safe sex counseling Last Documented On 1 3:18PM ; [facility] Instructions for patient ER if bleeding through reg. sized pad/tampon < 1 hour Last Documented On 0 8:59AM ; [facility] Instructions for patient : p atient is to keep a menstrual diary to help with further evaluation and treatment Last Documented On 0 8:59AM ; [facility] Instructions for patient ER if dizzy, vomiting or light-headed due to heavy bleeding Last Documented On 0 8:59AM ; [facility] Instructions for patient : B reast Self Exam discussed Last Documented On 0 1:31PM ; [facility] Instructions for patient : t he patient was instructed in the use and possible side effects of the medication prescribed. She is to maintain good hydration via p.o. fluids. We also discussed possible triggers for UTI and preventive measures Last Documented On 0 1:39PM ; [facility] Instructions for patient : K eep the area around the vulva dry. Allow the area to have exposure to air. Avoid irritants such as fabric softeners and perfumed soaps.~ Last Documented On 0 1:41PM ; [facility] Advised d/c scented bath pro ducts Last Documented On 0 1:41PM ; [facility] Patient to call if fever or back pain Last Documented On 0 1:39PM ; [facility] Instructed to decrease carbo nation and caffeine Last Documented On 0 1:39PM ; [facility] Increase water po Last Documented On 0 1:39PM ; [facility] Instructions For Patient: go od handwashing and perineal care Last Documented On 0 1:39PM ; [facility] Instructions for patient : B reast Self Exam discussed Last Documented On 9 1:32PM ; [facility] Safe sex counseling Last Documented On 9 1:33PM ; [facility] Instructions for patient : K eep the area around the vulva dry. Allow the area to have exposure to air. Avoid irritants such as fabric softeners and perfumed soaps.~ Last Documented On 8 1:27PM ; [facility] Advised d/c scented bath pro ducts Last Documented On 8 1:27PM ; [facility] Instructions for patient : B reast Self Exam discussed Last Documented On 7 9:59AM ; [facility] Safe sex counseling Last Documented On 7 9:59AM ; [facility] Instructions for patient : B reast Self Exam discussed Last Documented On 6 9:58AM ; [facility] Safe sex counseling Last Documented On 6 9:58AM ; [facility] Instructions for patient : B reast Self Exam discussed Last Documented On 5 3:32PM ; [facility] Safe sex counseling Last Documented On 5 3:32PM ; [facility] Instructions for patient : B reast Self Exam discussed Last Documented On 4 8:38AM ; [facility] Return to the clinic if cond ition worsens or new symptoms arise Last Documented On 4 8:52AM ; [facility] ER/ Pain Precautions Last Documented On 4 8:52AM ; [facility] Instructions for patient : B reast Self Exam discussed Last Documented On 0 12:01PM ; [facility] Education and Decision Aids were provided during visit for: Patient Education: Daily hector cium and vitamin D Last Documented On 4 9:06AM ; [facility] Patient Education: weight be aring exercise Last Documented On 4 9:06AM ; [facility] Patient Education: Daily hector cium and vitamin D Last Documented On 2 8:14AM ; [facility] Patient Education: weight be aring exercise Last Documented On 2 8:14AM ; [facility] Patient Education: Daily hector cium and vitamin D Last Documented On 1 3:17PM ; [facility] Patient Education: weight be aring exercise Last Documented On 1 3:17PM ; [facility] INFORMED CONSENT DISCUSSION: Endometrial biopsy was discussed in detail including discomfort, insufficient specimen with need to repeat test, and rare incidence of uterine perforation. Patient expressed understanding of the above and consented to the procedure Last Documented On 0 8:59AM ; [facility] Patient Education: Daily hector cium and vitamin D Last Documented On 0 1:31PM ; [facility] Patient Education: weight be aring exercise Last Documented On 0 1:31PM ; [facility] Patient Education: Daily hector cium and vitamin D Last Documented On 9 1:32PM ; [facility] Patient Education: weight be aring exercise Last Documented On 9 1:32PM ; [facility] Candidiasis Vulvovaginitis I nformation Sheet Given Last Documented On 8 1:34PM ; [facility] Patient Education: Daily hector cium and vitamin D Last Documented On 7 9:59AM ; [facility] Patient Education: weight be aring exercise Last Documented On 7 9:59AM ; [facility] Patient Education: Daily hector cium and vitamin D Last Documented On 6 9:58AM ; [facility] Patient Education: weight be aring exercise Last Documented On 6 9:58AM ; [facility] Patient Education: Daily hector cium and vitamin D Last Documented On 5 3:32PM ; [facility] Patient Education: weight be aring exercise Last Documented On 5 3:32PM ; [facility] Patient Education: Daily hector cium and vitamin D Last Documented On 4 8:38AM ; [facility] Patient Education: weight be aring exercise Last Documented On 4 8:38AM ; [facility] STD screening offered and de clined Last Documented On 0 12:01PM ; [facility] Medical Equipment - Implanted Devices Includes: Current and historical Devices No Medical Equipment Recorded Medications Includes: Current and historical Medications Current Medications (continue as prescribed) Valsartan 160 MG Oral Tablet 05/04/2023 Provider: ZAFAR MONTAÑO MD Diagnosis: Last Documented On 08/13/2023 9:16AM By Monika NORMAN ; [facility] Meloxicam 15 MG Oral Tablet 10/10/2020 Provider: Diagnosis: Last Documented On 1 4:19PM By KATE NORMAN ; [facility] Pristiq 100MG Oral Tablet Extended Release 24 Hour 11/2018 Provider: Diagnosis: Last Documented On 07/09/2018 1:43PM By TUSHAR NORMAN ; [facility] HumaLOG Mix 50/50 (50-50) 100 UNIT/ML SC SUSP 04/15/20 14 Provider: Diagnosis: Last Documented On 09/14/2013 8:54AM By TUSHAR SHEARER Yoli ; [facility] Past Medications on file Diflucan 150 MG Oral Tablet 01/10/2023 - 01/11/2023 Pr ovider: Diagnosis: 1 tab po may repeat in 3 days if needed. Last Documented On 01/10/2023 9:45AM By Tri Randle Yoli ; [facility] Amphetamine-Dextroamphetamin e 15 MG Oral Tablet 01/23/2022 - 08/13/2023 Provider: ZAFAR MONTAÑO MD Diagnosis: Last Documented On 08/13/2023 9:16AM By Monika Garrison Yoli ; [facility] Cytotec 200 MCG Oral Tablet 08/25/2020 - 09/12/2020 Provider: MARGOT WATTS MD Diagnosis: Excessive and fr equent menstruation with regular cycle Sig: one po at hs the night before Novasure, then one po upon awakening the day of Novasure. Last Documented On 4:37PM By KATE NORMAN ; [facility] Ibuprofen 200 MG Oral Capsule 08/25/2020 - 09/12/2020 Provider: MARGOT WATTS MD Diagnosis: Excessive and fr equent menstruation with regular cycle Sig: take 4--200 mg tablets at bedtime the night before the procedure, then take 4 more 200 mg tablets upon awakening the morning of the procedure. Last Documented On 4:37PM By KATE NORMAN ; [facility] Lyrica 25 MG Oral Capsule 07/21/2020 - 02/08/2022 Prov ider: Diagnosis: Last Documented On 02/08/2022 8:16AM By Nuvia Whitten ; [facility] Microgestin 06/21 1-20 MG-MCG Oral Tablet 07/21/2020 - 08/25/2020 Provider: CASS TAVERA WORKDAY SENIOR ASSOCIATE-BC Diagnosis: One tablet daily Last Documented On 10:12AM By DILIA MANJARREZ LPN ; [facility] Abilify 2 MG Oral Tablet 06/13/2020 - 02/08/2022 Provi iris: Diagnosis: Last Documented On 02/08/2022 8:16AM By Nuvia Whitten ; [facility] Topamax 25 MG Oral Tablet 06/13/2020 - 07/21/2020 Prov ider: Diagnosis: bid Last Documented On 07/21/2020 3:23PM By Nalini Alvarado MA ; [facility] Microgestin 1/20 1-20 MG-MCG Oral Tablet 06/08/2020 - 07/21/2020 Provider: CASS TAVERA WORKDAY SENIOR ASSOCIATE-BC Diagnosis: One tablet daily Last Documented On 07/21/2020 3:23PM By Nalini Alvarado MA ; [facility] Microgestin 1/20 1-20 MG-MCG Oral Tablet 05/15/2020 - 06/08/2020 Provider: CASS TAVERA WORKDAY SENIOR ASSOCIATE-BC Diagnosis: One tablet daily Last Documented On 1 6:19AM By CASS ASHLEY ALLAN-BC ; [facility] Vitamin D3 1.25 MG (47258 UT) Oral Capsule 10/11/2019 - 06/13/2020 Provider: Diagnosis: Last Documented On 1 11:40AM By KATE NORMAN ; [facility] Microgestin 1/20 1-20 MG-MCG Oral Tablet 07/15/2019 - 05/15/2020 Provider: CASS TAVERA WORKDAY SENIOR ASSOCIATE-BC Diagnosis: One tablet daily Last Documented On 0 6:31AM By CASS ASHLEY ALLAN-BC ; [facility] Toujeo Osman SoloStar 300 UNIT /ML Subcutaneous Solution Pen-injector 07/15/2019 - 06/13/2020 Provider: Diagnosis: Last Documented On 1 11:40AM By KATE NORMAN ; [facility] Microgestin 1/20 1-20 MG-MCG Oral Tablet 06/22/2019 - 07/15/2019 Provider: CASS TAVERA WORKDAY SENIOR ASSOCIATE-BC Diagnosis: TAKE 1 TABLET BY MOUTH ONCE DAILY Last Documented On 0 1:52PM By CASS AGUILA-BC ; [facility] Microgestin 1/20 1-20MG-MCG Oral Tablet 07/09/2018 - 06/22/2019 Provider: CASS TAVERA WORKDAY SENIOR ASSOCIATE-BC Diagnosis: One tablet daily Last Documented On 0 10:33AM By CASS ASHLEY ADAMS ; [facility] Levemir 100UNIT/ML Subcutaneous Solution 07/09/2018 - 07/15/2019 Provider: Diagnosis: Last Documented On 07/15/2019 1:41PM By TUSHAR NORMAN ; [facility] Microgestin 1/20 1-20MG-MCG Oral Tablet 04/30/2018 - 07/09/2018 Provider: CASS TAVERA WORKDAY SENIOR ASSOCIATE-BC Diagnosis: One tablet daily Last Documented On 9 1:53PM By CASS ASHLEY ADAMS ; [facility] Microgestin 1/20 1-20MG-MCG Oral Tablet 01/22/2018 - 04/30/2018 Provider: CASS TAVERA NP-BC Diagnosis: One tablet daily Last Documented On 8 12:33PM By CASS ASHLEY ADAMS ; [facility] Terazol 7 0.4% Vaginal Cream 10/24/2017 - 07/09/2018 P rovider: Diagnosis: Last Documented On 07/09/2018 1:42PM By TUSHAR NORMAN ; [facility] Diflucan 150MG Oral Tablet 10/24/2017 - 07/09/2018 Pro vider: Diagnosis: Last Documented On 07/09/2018 1:42PM By TUSHAR NORMAN ; [facility] Loestrin 1/20 (21) 1-20MG-MC G Oral Tablet 07/03/2017 - 01/22/2018 Provider: CASS TAVERA NP-BC Diagnosis: One tablet daily Last Documented On 8 1:52PM By CASS BA ; [facility] Lo Loestrin Fe 1 MG-10 MCG /10 MCG Oral Tablet 05/06/2017 - 07/03/2017 Provider: CASS ASHLEY WORKDAY SENIOR ASSOCIATE-BC Diagnosis: One tablet daily Last Documented On 8 1:26PM By CASS ASHLEY ADAMS ; [facility] Diflucan 150MG Oral Tablet 01/29/2017 - 07/09/2018 Pro vider: Diagnosis: Last Documented On 07/09/2018 1:42PM By TUSHAR NORMAN ; [facility] Lo Loestrin Fe 1 MG-10 MCG /10 MCG Oral Tablet 01/23/2017 - 05/06/2017 Provider: CASS TAVERA WORKDAY SENIOR ASSOCIATE-BC Diagnosis: One tablet daily Last Documented On 7 1:51PM By CASS BA ; [facility] Sertraline HCl 100MG Oral Tablet 01/23/2017 - 07/09/19 19 Provider: Diagnosis: Last Documented On 07/09/2018 1:43PM By TUSHAR NORMAN ; [facility] Newcomb 7.5-325MG Oral Tablet 01/23/2017 - 07/15/2019 Pr ovider: Diagnosis: Last Documented On 07/15/2019 1:41PM By TUSHAR NORMAN ; [facility] Gabapentin 100MG Oral Capsule 01/23/2017 - 07/09/2018 Provider: Diagnosis: Last Documented On 07/09/2018 1:42PM By TUSHAR NORMAN ; [facility] Lo Loestrin Fe 1 MG-10 MCG / 10 MCG Tablet 02/16/2016 - 01/23/2017 Provider: CASS TAVERA WORKDAY SENIOR ASSOCIATE-BC Diagnosis: One tablet daily Last Documented On 7 10:08AM By TUSHAR NORMAN ; [facility] Verapamil HCl 40 MG Tablet 01/12/2016 - 07/09/2018 Pro vider: Diagnosis: Last Documented On 07/09/2018 1:43PM By TUSHAR NORMAN ; [facility] Wellbutrin SR 100 MG Tablet Extended Release 12 Hour 01/12/2016 - 07/09/2018 Provider: Diagnosis: Last Documented On 07/09/2018 1:43PM By TUSHAR NORMAN ; [facility] Lo Loestrin Fe 1 MG-10 MCG / 10 MCG Tablet 11/30/2015 - 01/11/2016 Provider: CASS TAVERA WORKDAY SENIOR ASSOCIATE-BC Diagnosis: One tablet daily Last Documented On 6 7:31AM By CASS BA ; [facility] Lo Loestrin Fe 1 MG-10 [...] On 6 10:06AM By CASS BA ; [facility] Lo Loestrin Fe 1 MG-10 MCG / 10 MCG Tablet 08/25/2014 - 09/20/2014 Provider: CASS BA Diagnosis: Contraceptive Ma ngmt NOS One tablet daily Last Documented On 5 12:41PM By TUSHAR NORMAN ; [facility] Diflucan 150 MG OR TABS 09/21/2013 - 11/14/2014 Provid er: Diagnosis: 1 po today repeat in 3 days no refills/kk-phoned out to anya fleming Last Documented On 5 3:38PM By CASS BA ; [facility] Lo Loestrin Fe 1 MG-10 MCG / 10 MCG OR TABS 09/14/2013 - 08/25/2014 Provider: CASS BA Diagnosis: Contraceptive Ma ngmt NOS Last Documented On 5 12:36PM By CASS BA ; [facility] Zoloft 50 MG OR TABS 09/14/2013 - 07/09/2018 Provider: Diagnosis: Last Documented On 07/09/2018 1:43PM By TUSHAR NORMAN ; [facility] Gabapentin 300 MG OR CAPS 09/14/2013 - 01/12/2016 Prov ider: Diagnosis: Last Documented On 6 10:11AM By TUSHAR NORMAN ; [facility] LO-LOESTRIN FE 1/10/10 MG/MCG MT TABS 09/14/2013 - Provider: Diagnosis: Last Documented On 4 12:47PM By CASS BA ; [facility] 19 OR TABS 10/29/2011 - 09/14/2013 Provider: CASS BA Diagnosis: TAKE 1 TABLET BY MOUTH EVERY DAY Last Documented On 09/14/2013 8:50AM By TUSHAR NORMAN ; [facility] metroNIDAZOLE 500 MG OR TABS 03/05/2011 - 09/14/2013 Ml arias: SHANNON OWENS MD Diagnosis: Last Documented On 09/14/2013 8:50AM By TUSHAR NORMAN ; [facility] 19 OR TABS 09/19/2010 - 09/14/2013 Provider: CASS ASHLEY WHNP-BC Diagnosis: Last Documented On 09/14/2013 8:50AM By TUSHAR NORMAN ; [facility] 19 OR TABS 09/19/2010 - 10/29/2011 Provider: CASS ASHLEY WHNP-BC Diagnosis: Last Documented On 2 12:40PM By CASS ASHLEY WHALLAN-BC ; [facility] RE OB + DHA 27-1 & 250 MG OR MISC 10/26/2009 - 011 Provider: SHANNON OWENS MD Diagnosis: I'm trying to give the FREE PNV that contains DHA, please let my office know if this is not it Last Documented On 10/26/2009 12:01PM By SHANNON OWENS MD ; [facility] glyBURIDE 5 MG OR TABS 10/26/2009 - 09/14/2013 Provide r: Diagnosis: Last Documented On 09/14/2013 8:50AM By TUSHAR NORMAN ; [facility] Zoloft 25 MG OR TABS 10/26/2009 - 09/14/2013 Provider: Diagnosis: Last Documented On 09/14/2013 8:50AM By TUSHAR NORMAN ; [facility] Hydrocodone-Acetaminophen 5-500 MG OR TABS 10/26/2009 - 09/14/2013 Provider: Diagnosis: Last Documented On 09/14/2013 8:50AM By TUSHAR NORMAN ; [facility] Alesse OR TABS 10/20/2007 - 10/14/2008 Provider: Diagnosis: Last Documented On 08/08/2009 2:42PM By NUVIA DILL ; [facility] Provera 10 MG OR TABS 04/06/2007 - 04/16/2007 Provider : Diagnosis: Last Documented On 08/08/2009 2:44PM By NUVIA DILL ; [facility] Loestrin 24 Fe 1-20 MG-MCG OR TABS 04/07/2006 - 2006 Provider: Diagnosis: Last Documented On 08/08/2009 2:45PM By NUVIA DILL ; [facility] Medications Administered Includes: Administered Medications in patient's chart No Administered Medications Recorded Results Includes: Results from 09/12/2023 through 09/11/2024 No Results Recorded For Specified Dates History of Present Illness History of Present Illness not supported for this document type No History of Present Illness Recorded Social History Description Last Updated Alcohol use 08/13/2023 Last Documented On 4 9:28AM ; [facility] Not using drugs 08/13/2023 Last Documented On 4 9:28AM ; [facility] Sexually active 08/13/2023 Last Documented On 4 9:28AM ; [facility] Sexually active with 1 partners in the l ast year 08/13/2023 Last Documented On 4 9:28AM ; [facility] Former smoker 07/21/2020 Last Documented On 1 3:39PM ; [facility] Smoking Status Unknown Procedures and Surgical History Surgical History Last Updated History of tubal ligation 08/28/2020 with novasure ablation 08/28/20 [facility] 10/10/2020 Last Documented On 1 4:43PM ; [facility] History of cholecystectomy 07/21/2020 Last Documented On 1 3:39PM ; [facility] History of Loop electrode excision of ce rvix (LEEP) 07/21/2020 Last Documented On 1 3:39PM ; [facility] Previous colposcopy 07/21/2020 Last Documented On 1 3:39PM ; [facility] Surgical / procedural histor y bilateral breast implants ~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 Ruth 08/13/2023 Last Documented On 4 9:28AM ; [facility] History of screening mammogram was perfo rmed 02/13/2022 08/13/2023 Last Documented On 4 9:28AM ; [facility] LMP: 202008/13/2023 Last Documented On 4 9:28AM ; [facility] left elbow surgery and reconstruction Last Documented On 1 3:39PM ; [facility] section 07/21/2020 Last Documented On 1 3:39PM ; [facility] Diabetes 07/21/2020 Last Documented On 1 3:39PM ; [facility] 1 07/21/2020 Last Documented On 1 3:39PM ; [facility] History of cervical dysplasia 07/21/2020 Last Documented On 1 3:39PM ; [facility] History of type 1 diabetes m ellitus last HgA1c was on 06/09/20: 9.3 which is unchanged from before 07/21/2020 Last Documented On 1 3:39PM ; [facility] Para 1 07/21/2020 Last Documented On 1 3:39PM ; [facility] Family History Includes: Family History in patient's chart Description Last Updated Maternal aunt's history of m alignant female breast neoplasm 2 maternal aunts in their 50's ~maternal 1st cousin 10/11/2019 Last Documented On 0 4:38PM ; [facility] Maternal history of pure hypercholestero lemia mother 07/15/2019 Last Documented On 0 1:53PM ; [facility] Paternal grandmother's history of diabet es mellitus paternal women 07/15/2019 Last Documented On 0 1:53PM ; [facility] Paternal history of hypertension father 07/15/2019 Last Documented On 0 1:53PM ; [facility] Family history of heart disease both raf es 09/14/2013 Last Documented On 4 9:03AM ; [facility] Family history of malignant female breast neoplasm 2 maternal aunts ~maternal 1st cousin 09/14/2013 Last Documented On 4 9:03AM ; [facility] Review of Systems Review of Systems not [...] Patient Last Documented On 0 2:41PM ; [facility] HPV, (quadrivalent) Gardasil 2 07/07/2008 Complete (Reported) Patient Last Documented On 0 2:41PM ; [facility] HPV, (quadrivalent) Gardasil 3 11/17/2008 Complete (Reported) Patient Last Documented On 0 2:41PM ; [facility] Allergies Includes: Active, inactive, and resolved Allergies Substance Type Reaction Onset Date Resolved Date Statu s Zosyn Allergy 06/13/2020 Active Last Documented On 08/13/2023 9:17AM ; [facility] Note: throat closes Zithromax Z-Doug Allergy 10/26/2009 [place] [facility] Last Documented On 9 1:42PM ; [facility] Tylenol with Codeine #3 Allergy Nausea, Vomiting 1 Active Last Documented On 4 9:17AM ; [facility] Insurance Includes: Active Insurance Policies Plan Name Member ID Group # Subscriber Relationship Effect erika Dates 1 - [facility] [id number] [place] Self Clinical Notes Includes: Signed Clinical Notes starting from 06/21/2022 No Clinical Notes Recorded
[2024-09-11 13:42] VITALS: BP 120/99; PULSE 80; RESP 18; TEMP 36.4; O2SAT 98
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
== END 2024-09-11 15:08 | disposition home or self-care (01) ==
PROVIDERS: Emergency Provider Nurse Practitioner; PCP Internal Medicine
DX: S80.812A Abrasion, left lower leg, initial encounter (principal); V28.99XA Unspecified rider of other motorcycle injured in noncollision transport accident in traffic accident, initial encounter
CPT/HCPCS: 73590; 99213; G0463